=== PATIENT | male | born 1940 | race Caucasian/White ===

== ENCOUNTER → 2016-09-07 | Outpatient (CLI) | payer MEDICARE, BC ==
--- NOTE | 2016-09-07 09:48 | US ---
EXAMINATION TYPE: US abdomen complete DATE OF EXAM: 09/07/2016 9:19 AM COMPARISON: CT on PACS CLINICAL HISTORY: Splenomegaly per order; prior cholecystectomy and hernia repair anterior abdominal wall; enlarged liver noted on CT; H t6'0", Wt 230lbs. EXAM MEASUREMENTS: Liver Length: 17.6cm Gallbladder Wall: surgically removed CBD: 0.3cm Spleen: 10.5 x 11.0 x 4.5cm Right Kidney: 11.7 x 6.7 x 4.5cm Left Kidney: 12.4 x 6.0 x 5.2cm ANATOMY: Pancreas: Obscured by bowel gas Liver: Increased posterior attenuation; fatty as is hyperechoic; left lobe complex cyst noted with p osterior enhancement = 2.3 x 2.7 x 2.2cm; in right lobe inferiorly is hypoechoic complex mass = 5.5 x 5.1 x 5.0cm ( possible complex cyst vs. Other mass, but consider mass at superior right renal jaky x due to limited separation between organs Gallbladder: surgically absent CBD: Within normal limits Spleen: Size is within normal limits, couple of hyperechoic foci scattered throughout suggests granu wander Right Kidney: no hydro seen Left Kidney: No hydronephrosis or masses seen Upper IVC: Within normal limits Abd Aorta: Obscured by overlying bowel gas at upper aorta, intimal thickening is noted mid and lower aorta There is a complex cyst within the right lobe of the liver and a 5.5 cm solid mass within the inferio r part of the right lobe of the liver. IMPRESSION: 2 complex liver lesions warrant further investigation. CT scan versus MRI of the liver would be sugge sted. Normal Values: Liver Length: < 16cm wnl, 17-18cm upper limits, >18cm enlarged Spleen Length = < 13cm Renal Length = 9 - 12cm GB Wall: < 0.3cm CBD: < 0.6cm or < 1.0cm post cholecystectomy
== END ==
LOC: RADUSWWP 08:42
PROVIDERS: ATTEND Internal Medicine Hematology & Oncology
DX: K76.9 Liver disease, unspecified (principal)
CPT/HCPCS: 76700

== ENCOUNTER 2016-10-07 09:58 | Day surgery (SDC) | payer MEDICARE, BC ==
[2016-10-07 10:33] LABS: Mean Platelet Volume 9.8
[2016-10-07 10:40] LABS: INR 1.2 (<1.1); Prothrombin Time 11.6 sec (9.0-12.0)
[2016-10-07] MEDS ORDERED: ALPRAZolam 0.25 MG TAB PO STA (10:53)
[2016-10-07] MEDS: HYDROmorphone 1 MG/ML 1 ML SYRINGE IVP STA ×3 (11:20→11:50)
[2016-10-07 11:33] VITALS: RESP 16
--- NOTE | 2016-10-07 12:25 | CT ---
EXAMINATION TYPE: CT biopsy liver DATE OF EXAM: 10/07/2016 12:02 PM COMPARISON: Ultrasound on 417, outside MRI dated 09/27/2016 HISTORY: Right lobe liver mass CT DLP: 2502mGycm PROCEDURE: The risks, applications, benefits and alternatives, were discussed with the patient and qu estions were answered. Informed consent was obtained. The patient was placed supine on the fluorosco pic table, prepped and draped in the usual sterile fashion. A 22-gauge system was utilized with direct passage of the needle into the right lobe liver lesion un oksana CT guidance. Samples were obtained with fine needle aspiration. Pathology confirmed adequate sa mple. The patient was stable throughout procedure and remained stable upon discharge from radiology. All elements of maximal barrier and sterile technique were utilized. IMPRESSION: 1. Successful right lobe liver mass fine needle aspiration under CT guidance.
[2016-10-07 13:37] VITALS: TEMP 98.2
[2016-10-07 15:40] VITALS: BP 125/65; PULSE 63
== END 2016-10-07 15:56 | disposition home or self-care (01) ==
LOC: RADPROMAIN 09:58
PROVIDERS: ATTEND Internal Medicine Hematology & Oncology
DX: R16.0 Hepatomegaly, not elsewhere classified (principal)
CPT/HCPCS: 88305; 88173; 85049; 85610; 88313; 88342; 88341; 36415; 47000; 77012; J1170

== ENCOUNTER → 2016-10-15 | Outpatient (CLI) | payer MEDICARE, BC ==
--- NOTE | 2016-10-16 11:34 | PE ---
EXAMINATION TYPE: PET CT fusion skull to thigh DATE OF EXAM: 10/15/2016 12:18 PM COMPARISON: MRI abdomen 09/27/2016, CT liver biopsy to 11/21/2016 HISTORY: Liver cancer TECHNIQUE: Following the intravenous administration of 13.46 mCi of F-18 FDG, whole body images are performed from the skull base to the midthigh. Images are reviewed on the computer in the coronal, a xial, and sagittal planes. Reconstructed rotating images are created on independent workstation and reviewed on the computer. A localization and attenuation correction CT is performed in conjunction with the PET scan. DLP: 494.93 mGycm SCAN: Initial Scan Blood glucose: 130 mg/dL Average Mediastinum SUV: 1.8 Average Liver SUV: 3.0 FINDINGS: NECK: No abnormal uptake THORAX: No abnormal uptake ABDOMEN AND PELVIS: No abnormal uptake Liver is slightly heterogenous without discrete focal areas of abnormal increased uptake to correspon d to the patient's reported liver cancer. There are scattered areas of increased uptake within loops of bowel. These could be within normal ellis its. There is some mild uptake within the distal rectum which can be within normal limits. Underlying neoplasm at these levels are not excluded. OSSEOUS STRUCTURES: No abnormal uptake LOCALIZATION CT: The ascending thoracic aorta at the level of the main pulmonary artery is 4.6 cm. Th e main pulmonary artery at the bifurcation is 2.8 cm. Coronary artery calcifications present. Vascula r calcification is within the aorta. Beam hardening artifact limits evaluation of the liver on the lo calization CT. Discrete masses or cysts are not identified. Pancreas appears atrophic. COMPARISON: When compared to the MRI from the outside institution and compared to a localization CT, some subtle bulging of the inferior medial right lobe liver adjacent to the inferior pole of the righ t kidney is identified which appears to correspond to the patient's reported cancer site. Suspicious uptake on PET CT however is not evident at this location. Images are reviewed in relation to the bio psy site of the liver performed at this location. IMPRESSION: 1. Abnormal uptake at the inferior medial right lobe liver at the patient's reported hepatic cancer i s not evident on the current PET/CT. This is poorly visualized localization CT. Monitoring may be req uired with MRI. 2. No suspicious distant hypermetabolic lesions evident.
== END | disposition home or self-care (01) ==
LOC: RADPETMAIN 07:40
PROVIDERS: ATTEND Internal Medicine Hematology & Oncology
DX: C22.8 Malignant neoplasm of liver, primary, unspecified as to type (principal)
CPT/HCPCS: 78815; A9552

== ENCOUNTER → 2016-10-21 | Outpatient (CLI) | payer MEDICARE, BC ==
[~2016-10-21] MED LIST: SODIUM CHLORIDE 0.9% 250 ML in EMPTY BAG 1 BAG IV PRN; SODIUM CHLORIDE 0.9% 500 ML in EMPTY BAG 1 BAG IV PRN
[2016-10-21 11:03] VITALS: RESP 17; TEMP 97.7
[2016-10-21 12:14] VITALS: BP 125/58; PULSE 60
== END | disposition home or self-care (01) ==
LOC: PROCWHC3 10:18
PROVIDERS: ATTEND Internal Medicine Rheumatology
DX: L40.50 Arthropathic psoriasis, unspecified (principal)
CPT/HCPCS: 96361; 96413; 96415; J1745

== ENCOUNTER → 2016-12-02 | Outpatient (CLI) | payer MEDICARE, BC ==
[2016-12-02 11:29] VITALS: RESP 18; TEMP 98.1
[2016-12-02 12:48] VITALS: BP 114/59; PULSE 57
== END | disposition home or self-care (01) ==
LOC: PROCWHC3 11:01
PROVIDERS: ATTEND Internal Medicine Rheumatology
DX: L40.50 Arthropathic psoriasis, unspecified (principal)
CPT/HCPCS: 96361; 96413; 96415; J1745

== ENCOUNTER → 2017-03-01 | Outpatient (CLI) | payer MEDICARE, BC ==
[2017-03-01 11:22] VITALS: RESP 16; TEMP 97.9
[2017-03-01 12:36] VITALS: BP 105/53; PULSE 59
== END | disposition home or self-care (01) ==
LOC: PROCWHC3 10:45
PROVIDERS: ATTEND Internal Medicine Rheumatology
DX: L40.53 Psoriatic spondylitis (principal)
CPT/HCPCS: 96413; 96415; J1745

== ENCOUNTER → 2017-06-02 | Outpatient (CLI) | payer MEDICARE, BC ==
[~2017-06-02] MED LIST changes: +INFLIXIMAB-DYYB 700 MG in SODIUM CHLORIDE 0.9% 250 ML IV ONE; -SODIUM CHLORIDE 0.9% 250 ML in EMPTY BAG 1 BAG IV PRN
[2017-06-02 11:18] VITALS: TEMP 98
[2017-06-02 11:57] LABS: Aty Lym Flag Marked; CH 29.3; CHCM 31.7; HCT 38.8 % (39.0-53.0); HDW 2.27; HGB 12.3 gm/dL (13.0-17.5); MCH 29.5 pg (25.0-35.0); MCHC 31.8 g/dL (31.0-37.0); MCV 92.8 fL (80.0-100.0); Mean Platelet Volume 9.8; RBC 4.18 m/uL (4.30-5.90); RDW 14.6 % (11.5-15.5); WBC 5.3 k/uL (3.8-10.6); WBC (Perox) 5.97
[2017-06-02 13:03] VITALS: BP 123/56; PULSE 59; RESP 18
[2017-06-02 14:02] LABS: ALT 48 U/L (21-72); AST 44 U/L (17-59); Alkaline Phosphatase 176 U/L (38-126); Anion Gap 14 mmol/L; Blood Urea Nitrogen 11 mg/dL (9-20); Calcium 9.6 mg/dL (8.4-10.2); Carbon Dioxide 26 mmol/L (22-30); Chloride 100 mmol/L (98-107); Glucose 140 mg/dL (74-99); Non-African American GFR(MDRD) >60 (>60 ml/min/1.73 sqM); Potassium 4.5 mmol/L (3.5-5.1); Sodium 140 mmol/L (137-145); Total Protein 8.2 g/dL (6.3-8.2)
[2017-06-02 14:22] LABS: Add Differential Manual Differential
[2017-06-02 14:26] LABS: Band Neutrophils % 2 %; Metamyelocytes % 1 %; Myelocytes % 1 %; Nucleated Red Blood Cells 0 /100 WBC (0-0); Total Cells Counted 200
== END ==
LOC: PROCWHC3 10:42
PROVIDERS: ATTEND Internal Medicine Rheumatology
DX: Z51.11 Encounter for antineoplastic chemotherapy (principal); L40.53 Psoriatic spondylitis
CPT/HCPCS: 80053; 85025; 96413; 96415; 36415; Q5102

== ENCOUNTER → 2017-10-06 | Outpatient (CLI) | payer MEDICARE, BC ==
[~2017-10-06] MED LIST changes: +SODIUM CHLORIDE 0.9% 250 ML in EMPTY BAG 1 BAG IV PRN
[2017-10-06 11:19] VITALS: RESP 16; TEMP 97.7
[2017-10-06 12:34] VITALS: BP 113/65; PULSE 57
== END | disposition home or self-care (01) ==
LOC: PROCWHC3 10:46
PROVIDERS: ATTEND Internal Medicine Rheumatology
DX: L40.53 Psoriatic spondylitis (principal)
CPT/HCPCS: 96413; 96415; Q5102

== ENCOUNTER → 2017-11-21 | Outpatient (CLI) | payer MEDICARE, BC ==
[~2017-11-21] MED LIST changes: -SODIUM CHLORIDE 0.9% 250 ML in EMPTY BAG 1 BAG IV PRN
[2017-11-21 11:43] VITALS: TEMP 98
[2017-11-21 12:47] VITALS: RESP 14
[2017-11-21 13:13] VITALS: BP 137/63; PULSE 59
== END | disposition home or self-care (01) ==
LOC: PROCWHC3 10:41
PROVIDERS: ATTEND Internal Medicine Rheumatology
DX: L40.53 Psoriatic spondylitis (principal)
CPT/HCPCS: 96413; 96415; Q5102

== ENCOUNTER → 2018-02-07 | Outpatient (CLI) | payer MEDICARE, BC ==
[2018-02-07 10:04] LABS: ALT 52 U/L (21-72); AST 62 U/L (17-59); Albumin 4.4 g/dL (3.5-5.0); Alkaline Phosphatase 254 U/L (38-126); Anion Gap 13 mmol/L; Bilirubin, Delta 0.7 mg/dL (0.0-0.2); Bilirubin,Unconjugated 0.9 mg/dL (0.0-1.1); Blood Urea Nitrogen 11 mg/dL (9-20); Calcium 9.4 mg/dL (8.4-10.2); Carbon Dioxide 28 mmol/L (22-30); Chloride 99 mmol/L (98-107); Glucose 119 mg/dL (74-99); Potassium 4.8 mmol/L (3.5-5.1); Sodium 140 mmol/L (137-145); Total Bilirubin 1.6 mg/dL (0.2-1.3)
[2018-02-07 10:14] LABS: HCT 36.1 % (39.0-53.0); HGB 12.2 gm/dL (13.0-17.5); MCH 31.2 pg (25.0-35.0); MCHC 33.9 g/dL (31.0-37.0); MCV 92.1 fL (80.0-100.0); Mean Platelet Volume 11.1; RBC 3.92 m/uL (4.30-5.90); WBC 6.5 k/uL (3.8-10.6)
[2018-02-07 12:48] LABS: Myelocytes # (M) 0.07 k/uL (0); Myelocytes % 1 %; Nucleated Red Blood Cells 0 /100 WBC (0-0)
[2018-02-07 12:49] LABS: Band Neutrophils % 3 %; Eosinophils # (M) 0.07 k/uL (0-0.7); Lymphocytes # (M) 1.11 k/uL (1.0-4.8); Metamyelocytes # (M) 0.07 k/uL (0); Metamyelocytes % 1 %; Monocytes # (M) 1.89 k/uL (0-1.0); Neutrophils % (M) 51 %; Total Cells Counted 200
[2018-02-07 12:50] LABS: Anisocytosis (M) Present; Platelet Count 70 k/uL (150-450); Poikilocytosis (M) Present
== END | disposition home or self-care (01) ==
LOC: LABWHC1 09:05
PROVIDERS: ATTEND Radiology Diagnostic Radiology
DX: C22.0 Liver cell carcinoma (principal)
CPT/HCPCS: 36415; 80053; 82105; 82248; 85025

== ENCOUNTER → 2018-03-06 | Outpatient (CLI) | payer MEDICARE, BC ==
[~2018-03-06] MED LIST changes: +INFLIXIMAB-DYYB 700 MG in SODIUM CHLORIDE 0.9% 250 ML IV NR; -INFLIXIMAB-DYYB 700 MG in SODIUM CHLORIDE 0.9% 250 ML IV ONE
[2018-03-06 09:21] VITALS: RESP 16; TEMP 97.6
[2018-03-06 10:54] VITALS: BP 141/60; PULSE 55
== END | disposition home or self-care (01) ==
LOC: PROCWHC3 09:00
PROVIDERS: ATTEND Internal Medicine Rheumatology
DX: L40.53 Psoriatic spondylitis (principal)
CPT/HCPCS: 96413; 96415; Q5103

== ENCOUNTER → 2018-06-08 | Outpatient (CLI) | payer MEDICARE, BC ==
[2018-06-08 13:40] LABS: INR 1.1 (<1.2)
[2018-06-08 13:50] LABS: ALT 55 U/L (21-72); AST 82 U/L (17-59); Albumin 3.8 g/dL (3.5-5.0); Alkaline Phosphatase 259 U/L (38-126); Anion Gap 10 mmol/L; Blood Urea Nitrogen 13 mg/dL (9-20); Calcium 8.8 mg/dL (8.4-10.2); Carbon Dioxide 29 mmol/L (22-30); Chloride 103 mmol/L (98-107); Glucose 95 mg/dL (74-99); LDH 615 U/L (313-618); Potassium 4.6 mmol/L (3.5-5.1); Sodium 142 mmol/L (137-145); Total Bilirubin 1.7 mg/dL (0.2-1.3)
[2018-06-08 14:07] LABS: Anisocytosis Slight; HCT 35.4 % (39.0-53.0); HGB 11.5 gm/dL (13.0-17.5); MCH 31.5 pg (25.0-35.0); MCHC 32.4 g/dL (31.0-37.0); Macrocytosis Slight; Mean Platelet Volume 12.9; RBC 3.65 m/uL (4.30-5.90); RDW 18.4 % (11.5-15.5); WBC 4.2 k/uL (3.8-10.6)
[2018-06-08 14:10] LABS: Platelet Count 47 k/uL (150-450)
[2018-06-08 15:01] LABS: Band Neutrophils % 3 %; Basophils # (M) 0.04 k/uL (0-0.2); Eosinophils # (M) 0.42 k/uL (0-0.7); Lymphocytes # (M) 1.01 k/uL (1.0-4.8); Monocytes # (M) 1.47 k/uL (0-1.0); Neutrophils % (M) 27 %; Nucleated Red Blood Cells 0 /100 WBC (0-0); Total Cells Counted 100
[2018-06-08 15:02] LABS: Poikilocytosis (M) Present
== END | disposition home or self-care (01) ==
LOC: LABWHC1 11:45
PROVIDERS: ATTEND Internal Medicine Medical Oncology
DX: C22.0 Liver cell carcinoma (principal)
CPT/HCPCS: 36415; 80053; 82105; 83615; 84443; 85025; 85610; 85730

== ENCOUNTER → 2018-06-21 | Outpatient (CLI) | payer MEDICARE, BC ==
[~2018-06-21] MED LIST changes: -INFLIXIMAB-DYYB 700 MG in SODIUM CHLORIDE 0.9% 250 ML IV NR; +INFLIXIMAB-DYYB 700 MG in SODIUM CHLORIDE 0.9% 250 ML IV ONE; +SODIUM CHLORIDE 0.9% 500 ML 500 ML in EMPTY BAG 1 BAG IV PRN; -SODIUM CHLORIDE 0.9% 500 ML in EMPTY BAG 1 BAG IV PRN
[2018-06-21 10:56] VITALS: TEMP 98.1
[2018-06-21 12:25] VITALS: BP 107/53; PULSE 56; RESP 18
== END | disposition home or self-care (01) ==
LOC: PROCWHC3 10:31
PROVIDERS: ATTEND Internal Medicine Rheumatology
DX: L40.50 Arthropathic psoriasis, unspecified (principal)
CPT/HCPCS: 96413; 96415; Q5103

== ENCOUNTER → 2018-08-08 | Outpatient (CLI) | payer MEDICARE, BC ==
--- NOTE | 2018-08-08 14:35 | XR ---
EXAMINATION TYPE: XR ribs RT DATE OF EXAM: 08/08/2018 COMPARISON: Chest 06/17/2017 HISTORY: 78-year-old male fall 5 weeks ago with pain, sprain of the ribs TECHNIQUE: 4 views FINDINGS: Degenerative spurring at the glenohumeral joint. Bony irregularity at the greater tuberosity suggesti ng chronic rotator cuff tendinopathy. Mild degenerative change at the AC joint. No displaced right ri b fracture seen. Left anterior chest wall injection port has its tip in the upper right atrium. Suspe cted calcified granuloma at the right midlung. IMPRESSION: Degenerative changes at the right shoulder. No displaced right rib fracture seen.
--- NOTE | 2018-08-08 14:36 | XR ---
EXAMINATION TYPE: XR Hip Limited LT DATE OF EXAM: 08/08/2018 COMPARISON: NONE HISTORY: 78-year-old male left hip pain TECHNIQUE: 2 views FINDINGS: Mild degenerative joint space narrowing with moderate degenerative spurring at the left hip. No acute fracture, subluxation, or dislocation seen. IMPRESSION: Mild overall left hip osteoarthrosis. No acute osseous abnormality seen.
== END | disposition home or self-care (01) ==
LOC: RADXRMAIN 11:50
PROVIDERS: ATTEND Family Medicine
DX: M16.11 Unilateral primary osteoarthritis, right hip (principal); S23.41XA Sprain of ribs, initial encounter
CPT/HCPCS: 73501

== ENCOUNTER 2018-09-13 10:42 | Outpatient (CLI) | payer MEDICARE, BC ==
[~2018-09-13 10:42] MED LIST changes: +INFLIXIMAB-DYYB 700 MG in SODIUM CHLORIDE 0.9% 250 ML IV NR; -INFLIXIMAB-DYYB 700 MG in SODIUM CHLORIDE 0.9% 250 ML IV ONE
[2018-09-13 11:41] VITALS: TEMP 97.6
[2018-09-13 12:34] VITALS: RESP 18
[2018-09-13 13:10] VITALS: BP 107/52; PULSE 62
== END 2018-09-13 14:51 | disposition home or self-care (01) ==
LOC: PROCWHC3 10:42
PROVIDERS: ATTEND Internal Medicine Rheumatology
DX: L40.53 Psoriatic spondylitis (principal); L40.50 Arthropathic psoriasis, unspecified
CPT/HCPCS: 96413; 96415; Q5103

== ENCOUNTER → 2018-10-30 | Outpatient (CLI) | payer MEDICARE, BC ==
[2018-10-30 11:22] VITALS: RESP 16; TEMP 97.4
[2018-10-30 12:57] VITALS: BP 105/59; PULSE 62
== END | disposition home or self-care (01) ==
LOC: PROCWHC3 10:47
PROVIDERS: ATTEND Internal Medicine Rheumatology
DX: L40.53 Psoriatic spondylitis (principal)
CPT/HCPCS: 96413; 96415; Q5103

== ENCOUNTER → 2018-12-12 | Outpatient (CLI) | payer MEDICARE, BC ==
[2018-12-12 11:37] VITALS: RESP 16; TEMP 97.9
[2018-12-12 13:20] VITALS: BP 100/60; PULSE 64
== END ==
LOC: PROCWHC3 11:12
PROVIDERS: ATTEND Internal Medicine Rheumatology
DX: L40.53 Psoriatic spondylitis (principal)
CPT/HCPCS: 96413; 96415; Q5103

== ENCOUNTER → 2019-02-01 | Outpatient (CLI) | payer MEDICARE, BC ==
[2019-02-01 12:29] VITALS: RESP 16; TEMP 98
[2019-02-01 14:08] VITALS: BP 116/56; PULSE 59
== END ==
LOC: PROCWHC3 12:05
PROVIDERS: ATTEND Internal Medicine Rheumatology
DX: L40.53 Psoriatic spondylitis (principal)
CPT/HCPCS: 96413; 96415; Q5103

== ENCOUNTER → 2019-05-14 | Outpatient (CLI) | payer MEDICARE, BC ==
[2019-05-14 11:01] VITALS: RESP 16; TEMP 97.6
[2019-05-14 12:42] VITALS: BP 130/67; PULSE 66
== END | disposition home or self-care (01) ==
LOC: PROCWHC3 10:37
PROVIDERS: ATTEND Internal Medicine Rheumatology
DX: L40.50 Arthropathic psoriasis, unspecified (principal)
CPT/HCPCS: 96413; 96415; Q5103

== ENCOUNTER 2019-07-09 11:05 | Inpatient (IN) | payer MEDICARE, BC ==
[2019-07-09] MEDS ORDERED: SODIUM CHLORIDE 0.9% 1,000 ML IV STA (11:47)
[2019-07-09] MEDS ORDERED: PANTOPRAZOLE 40 MG/10 ML VIAL IVP STA (11:47)
--- NOTE | 2019-07-09 11:51 | ED ---
General Adult HPI - General Chief complaint: Weakness Stated complaint: black stool, weakness Time Seen by Provider: 07/09/19 11:23 Source: patient, family, RN notes reviewed, old records reviewed Mode of arrival: wheelchair Limitations: no limitations - History of Present Illness Initial comments: Patient is a 79-year-old male, with history of liver cancer, with metastases. He presents today for generalized weakness and pallor. Patient's reports that he had episodes of black tarry stool on Monday. That time he refused to go to the hospital. Patient's oncologist is Dr. Baker at [facility]. Patient just feels generally weak. He complains of right upper quadrant and flank pain with this is chronic for Patient. He states he just feels unwell and tired. He's never had a history of blood transfusions besides a platelet transfusion. His platelets previously were 77 and his hemoglobin was approximately 3 weeks ago was 10 at that time. Patient is not on blood thinners. - Related Data Home Medications Medication Instructions Recorded Confirmed Carvedilol [Coreg] 6.25 mg PO BID 01/21/14 05/14/19 Furosemide [Lasix] 20 mg PO DAILY 01/21/14 05/14/19 HYDROcodone/APAP 10-325MG [[place] 2 tab PO TID PRN 01/21/14 05/14/19 10-325] Potassium Chloride ER [K-Dur 10] 10 meq PO DAILY 01/21/14 05/14/19 metFORMIN HCL [Glucophage] 850 mg PO HS 01/21/14 05/14/19 Cyclobenzaprine [Flexeril] 10 mg PO HS PRN 07/05/16 05/14/19 Gabapentin [Neurontin] 800 mg PO HS 07/05/16 05/14/19 Pravastatin Sodium [Pravachol] 40 mg PO HS 07/05/16 05/14/19 Tamsulosin [Flomax] 0.4 mg PO HS 07/05/16 05/14/19 Cholecalciferol [Vitamin D3] 5,000 unit PO DAILY 09/30/16 05/14/19 Multivit-Min/FA/Lycopen/Lutein 1 tab PO DAILY 09/30/16 05/14/19 [Centrum Silver Tablet] inFLIXimab [Remicade] 600 mg IV Q180D 09/30/16 05/14/19 Omeprazole [PriLOSEC] 20 mg PO BID 06/17/17 05/14/19 Ferrous Sulfate [Iron] 325 mg PO DAILY 08/25/17 05/14/19 Cabozantinib S-Malate [Cabometyx] 20 mg PO DAILY 05/14/19 05/14/19 Previous Rx's Medication Instructions Recorded Polyethylene Glycol 3350 [Miralax] 17 gm PO DAILY #527 gm 06/17/17 Allergies Allergy/AdvReac Type Severity Reaction Status Date / Time No Known Allergies Allergy Verified 05/14/19 10:46 Review of Systems ROS Statement: Those systems with pertinent positive or pertinent negative responses have been documented in the HPI. ROS Other: All systems not noted in ROS Statement are negative. Past Medical History Past Medical History: Blood Disorder, Cancer, Chest Pain / Angina, COPD, CVA/TIA, Diabetes Mellitus, GERD/Reflux, Hearing Disorder / Deafness, Hyperlipidemia, Hypertension, Liver Disease, Prostate Disorder, Sleep Apnea/CPAP/BIPAP Additional Past Medical History / Comment(s): DIFF HEARING R&L/HEART MURMUR/POOR CIRCULATION/ENLARGED HEART/BRADYCARDIA/PSORIASIS/EMPHYSEMA/FATTY LIVER. LOW PLATELETS. Liver Cancer 2017, [place] History of Any Multi-Drug Resistant Organisms: None Reported Past Surgical History: Cholecystectomy, Heart Catheterization, Hernia Repair Additional Past Surgical History / Comment(s): BRONCHOSCOPY/CATARACT REMOVAL L&R/EGD/COLONOSCOPY/RT KNEE ARTHROSCOPIC /BULLETS REMOVED FROM LT ARM AND CHEST 1970'S/CIRCUMCISION, LIVER BIOPSY Past Anesthesia/Blood Transfusion Reactions: No Reported Reaction Past Psychological History: Anxiety Smoking Status: Former smoker Past Alcohol Use History: None Reported Past Drug Use History: None Reported - Past Family History Father Family Medical History: Cancer Additional Family Medical History / Comment(s): PROSTATE CANCER Brother(s) Family Medical History: Cancer Additional Family Medical History / Comment(s): COLON CANCER. General Exam - General Exam Comments Initial Comments: 79-year-old male. Patient appears very pale generally weak. Limitations: no limitations General appearance: alert, in no apparent distress Head exam: Present: atraumatic, normocephalic, normal inspection Eye exam: Present: normal appearance, PERRL, EOMI, other (conjuncival pallor ). Absent: scleral icterus, conjunctival injection, periorbital swelling ENT exam: Present: normal exam, mucous membranes dry, mucous membranes moist. Absent: normal oropharynx Neck exam: Present: normal inspection. Absent: tenderness, meningismus, lymphadenopathy Respiratory exam: Present: normal lung sounds bilaterally. Absent: respiratory distress, wheezes, rales, rhonchi, stridor Cardiovascular Exam: Present: regular rate, normal rhythm, normal heart sounds. Absent: systolic murmur, diastolic murmur, rubs, gallop, clicks GI/Abdominal exam: Present: soft, normal bowel sounds. Absent: distended, tenderness, guarding, rebound, rigid Extremities exam: Present: normal inspection, full ROM, normal capillary refill. Absent: tenderness, pedal edema, joint swelling, calf tenderness Back exam: Present: normal inspection Neurological exam: Present: alert, oriented X3, CN II-XII intact Psychiatric exam: Present: normal affect, normal mood Skin exam: Present: warm, dry, intact, normal color. Absent: rash Course Vital Signs 07/09/19 11:08 Temperature 97.9 F Pulse Rate 100 Respiratory 18 Rate Blood Pressure 101/55 O2 Sat by Pulse 100 Oximetry Medical Decision Making - Medical Decision Making 79-year-old male today for emergency department for generalized weakness, pale. Patient's reports he's had dark tarry stools weekend. His history of liver cancer being treated Chuy Luisito. He is currently on oral chemo. He also has a port access. At this time Patient states his last dark tarry stools on Monday. He complains of just chronic abdominal pain related to liver cancer. No vomiting. Patient was severely feeling pale on exam. Hemoglobin of 5.7. Stool occult was positive. Chemistry panels were otherwise unremarkable. Patient's platelets were 90 at this time. Patient will be admitted after receiving 2 units of PRBCs and will be admitted to ICU. Patient was admitted to Dr. Pickering with consult to GI and Dr. Amos. - Lab Data Result diagrams: 07/09/19 12:10 07/09/19 12:10 Lab Results 07/09/19 07/09/19 07/09/19 Range/Units 12:10 12:10 12:10 WBC 6.3 (3.8-10.6) k/uL RBC 1.72 L (4.30-5.90) m/uL Hgb 5.7 L* (13.0-17.5) gm/dL Hct 16.7 L* (39.0-53.0) % MCV 97.3 (80.0-100.0) fL MCH 33.2 (25.0-35.0) pg MCHC 34.1 (31.0-37.0) g/dL RDW 19.9 H (11.5-15.5) % Plt Count 90 L (150-450) k/uL Neutrophils % (Manual) 51 % Band Neutrophils % 2 % Lymphocytes % (Manual) 27 % Monocytes % (Manual) 20 % Neutrophils # (Manual) 3.30 (1.3-7.7) k/uL Lymphocytes # (Manual) 1.70 (1.0-4.8) k/uL Monocytes # (Manual) 1.26 H (0-1.0) k/uL Nucleated RBCs 0 (0-0) /100 WBC Manual Slide Review Performed Anisocytosis Slight Macrocytosis Slight PT (9.0-12.0) sec INR (<1.2) APTT (22.0-30.0) sec Sodium 140 (137-145) mmol/L Potassium 3.6 (3.5-5.1) mmol/L Chloride 104 (98-107) mmol/L Carbon Dioxide 25 (22-30) mmol/L Anion Gap 11 mmol/L BUN 32 H (9-20) mg/dL Creatinine 0.68 (0.66-1.25) mg/dL Est GFR (CKD-EPI)AfAm >90 (>60 ml/min/1.73 sqM) Est GFR (CKD-EPI)NonAf >90 (>60 ml/min/1.73 sqM) Glucose 170 H (74-99) mg/dL Calcium 9.0 (8.4-10.2) mg/dL Magnesium 1.9 (1.6-2.3) mg/dL Total Bilirubin 1.5 H (0.2-1.3) mg/dL AST 91 H (17-59) U/L ALT 66 (21-72) U/L Alkaline Phosphatase 164 H (38-126) U/L Ammonia 22 (<30) umol/L Troponin I (0.000-0.034) ng/mL Total Protein 7.4 (6.3-8.2) g/dL Albumin 3.5 (3.5-5.0) g/dL Stool Occult Blood (Negative) Blood Type Blood Type Recheck Bld Type Recheck Status Antibody Screen Crossmatch Spec Expiration Date 07/09/19 07/09/19 07/09/19 Range/Units 12:10 12:10 12:10 WBC (3.8-10.6) k/uL RBC (4.30-5.90) m/uL Hgb (13.0-17.5) gm/dL Hct (39.0-53.0) % MCV (80.0-100.0) fL MCH (25.0-35.0) pg MCHC (31.0-37.0) g/dL RDW (11.5-15.5) % Plt Count (150-450) k/uL Neutrophils % (Manual) % Band Neutrophils % % Lymphocytes % (Manual) % Monocytes % (Manual) % Neutrophils # (Manual) (1.3-7.7) k/uL Lymphocytes # (Manual) (1.0-4.8) k/uL Monocytes # (Manual) (0-1.0) k/uL Nucleated RBCs (0-0) /100 WBC Manual Slide Review Anisocytosis Macrocytosis PT 12.0 (9.0-12.0) sec INR 1.2 H (<1.2) APTT 25.7 (22.0-30.0) sec Sodium (137-145) mmol/L Potassium (3.5-5.1) mmol/L Chloride (98-107) mmol/L Carbon Dioxide (22-30) mmol/L Anion Gap mmol/L BUN (9-20) mg/dL Creatinine (0.66-1.25) mg/dL Est GFR (CKD-EPI)AfAm (>60 ml/min/1.73 sqM) Est GFR (CKD-EPI)NonAf (>60 ml/min/1.73 sqM) Glucose (74-99) mg/dL Calcium (8.4-10.2) mg/dL Magnesium (1.6-2.3) mg/dL Total Bilirubin (0.2-1.3) mg/dL AST (17-59) U/L ALT (21-72) U/L Alkaline Phosphatase (38-126) U/L Ammonia (<30) umol/L Troponin I <0.012 (0.000-0.034) ng/mL Total Protein (6.3-8.2) g/dL Albumin (3.5-5.0) g/dL Stool Occult Blood (Negative) Blood Type A Positive Blood Type Recheck A Pos Bld Type Recheck Status No Antibody Screen NEGATIVE Crossmatch See Detail Spec Expiration Date 07/12/2019 - 230907/09/19 Range/Units 12:19 WBC (3.8-10.6) k/uL RBC (4.30-5.90) m/uL Hgb (13.0-17.5) gm/dL Hct (39.0-53.0) % MCV (80.0-100.0) fL MCH (25.0-35.0) pg MCHC (31.0-37.0) g/dL RDW (11.5-15.5) % Plt Count (150-450) k/uL Neutrophils % (Manual) % Band Neutrophils % % Lymphocytes % (Manual) % Monocytes % (Manual) % Neutrophils # (Manual) (1.3-7.7) k/uL Lymphocytes # (Manual) (1.0-4.8) k/uL Monocytes # (Manual) (0-1.0) k/uL Nucleated RBCs (0-0) /100 WBC Manual Slide Review Anisocytosis Macrocytosis PT (9.0-12.0) sec INR (<1.2) APTT (22.0-30.0) sec Sodium (137-145) mmol/L Potassium (3.5-5.1) mmol/L Chloride (98-107) mmol/L Carbon Dioxide (22-30) mmol/L Anion Gap mmol/L BUN (9-20) mg/dL Creatinine (0.66-1.25) mg/dL Est GFR (CKD-EPI)AfAm (>60 ml/min/1.73 sqM) Est GFR (CKD-EPI)NonAf (>60 ml/min/1.73 sqM) Glucose (74-99) mg/dL Calcium (8.4-10.2) mg/dL Magnesium (1.6-2.3) mg/dL Total Bilirubin (0.2-1.3) mg/dL AST (17-59) U/L ALT (21-72) U/L Alkaline Phosphatase (38-126) U/L Ammonia (<30) umol/L Troponin I (0.000-0.034) ng/mL Total Protein (6.3-8.2) g/dL Albumin (3.5-5.0) g/dL Stool Occult Blood Positive (Negative) Blood Type Blood Type Recheck Bld Type Recheck Status Antibody Screen Crossmatch Spec Expiration Date - Radiology Data Radiology results: report reviewed No acute cranial process. Patchy midlung densities appear represent pleural calcifications correlating to PET scan of 10/15/2016. Critical Care Time Critical Care Time: Yes Critical Care Time: Within 30 minutes of critical care time was done managing the Patient for concern for GI bleed and transfusing 2 units of PRBCs. Disposition Clinical Impression: GI bleed, Liver cancer, Weakness Disposition: ADMITTED IP TO THIS [facility] Condition: Stable Is patient prescribed a controlled substance at d/c from ED?: No Referrals: Felisha Calderon MD [Primary Care Provider] - 1-2 days Time of Disposition: 13:45
[2019-07-09 12:42] LABS: ALT 66 U/L (21-72); AST 91 U/L (17-59); African American GFR (CKD) >90 (>60 ml/min/1.73 sqM); Albumin 3.5 g/dL (3.5-5.0); Alkaline Phosphatase 164 U/L (38-126); Anion Gap 11 mmol/L; Blood Urea Nitrogen 32 mg/dL (9-20); Carbon Dioxide 25 mmol/L (22-30); Chloride 104 mmol/L (98-107); Glucose 170 mg/dL (74-99); Magnesium 1.9 mg/dL (1.6-2.3); Potassium 3.6 mmol/L (3.5-5.1); Sodium 140 mmol/L (137-145); Total Bilirubin 1.5 mg/dL (0.2-1.3); Total Protein 7.4 g/dL (6.3-8.2)
[2019-07-09 12:53] LABS: INR 1.2 (<1.2); Partial Thromboplastin Time 25.7 sec (22.0-30.0)
[2019-07-09 13:00] LABS: Anisocytosis Slight; MCH 33.2 pg (25.0-35.0); MCHC 34.1 g/dL (31.0-37.0); MCV 97.3 fL (80.0-100.0); Macrocytosis Slight; Mean Platelet Volume 8.7; RBC 1.72 m/uL (4.30-5.90); RDW 19.9 % (11.5-15.5); WBC 6.3 k/uL (3.8-10.6)
[2019-07-09] MEDS: SODIUM CHLORIDE 0.9% 1,000 ML IV STA ×2 (13:04→20:48)
[2019-07-09 13:11] LABS: HCT 16.7 % (39.0-53.0); HGB 5.7 gm/dL (13.0-17.5)
--- NOTE | 2019-07-09 13:18 | XR ---
EXAMINATION TYPE: XR chest 2V DATE OF EXAM: 07/09/2019 COMPARISON: 08/08/2018 rib series and 06/17/2017 chest x-ray. PET/CT of 10/15/2016. HISTORY: Weakness and chest pain TECHNIQUE: Frontal and lateral views of the chest are obtained. FINDINGS: Stable metallic debris along the left hemidiaphragm. Left-sided Mediport is in place termin ating in the high right atrium. There is no focal air space opacity, pleural effusion, or pneumothora x seen. Patchy bilateral midlung densities. The cardiac silhouette size is upper limits of normal. S light pulmonary hyperinflation that may relate to underlying COPD. The osseous structures are intact. Moderate degenerative changes of the spine. IMPRESSION: 1. No acute cardiopulmonary process. 2. Patchy midlung densities appear to represent pleural calcifications when correlated with the PET/C T of 10/15/2016
[2019-07-09 13:33] LABS: Band Neutrophils % 2 %; Monocytes # (M) 1.26 k/uL (0-1.0); Neutrophils % (M) 51 %; Nucleated Red Blood Cells 0 /100 WBC (0-0); Total Cells Counted 100
[2019-07-09] MEDS ORDERED: NALOXONE 0.4 MG/ML 1 ML VIAL IV PRN (13:46)
[2019-07-09] MEDS ORDERED: ACETAMINOPHEN TAB 325 MG TAB PO PRN (13:46)
[2019-07-09] MEDS ORDERED: HYDROmorphone 1 MG/ML 1 ML SYRINGE IVP PRN (13:46)
[2019-07-09] MEDS ORDERED: MORPHINE SULFATE 4 MG/ML SYRINGE IV PRN (13:46)
[2019-07-09 13:54] LABS: Platelet Count 90 k/uL (150-450)
[2019-07-09] MEDS ORDERED: CYCLOBENZAPRINE 10 MG TAB PO PRN (15:13)
[2019-07-09] MEDS ORDERED: HYDROcodone/APAP 10-325MG 1 EACH TAB PO PRN (15:14)
[2019-07-09] MEDS ORDERED: ONDANSETRON 4 MG/2 ML VIAL IVP PRN (15:15)
[2019-07-09 15:19] LABS: Anisocytosis Slight; MCH 32.8 pg (25.0-35.0); MCHC 33.3 g/dL (31.0-37.0); MCV 98.6 fL (80.0-100.0); Macrocytosis Slight; Mean Platelet Volume 9.6; Platelet Count 60 k/uL (150-450); RDW 19.6 % (11.5-15.5); WBC 4.4 k/uL (3.8-10.6)
[2019-07-09 15:34] LABS: HCT 15.8 % (39.0-53.0)
[2019-07-09 15:35] LABS: HGB 5.3 gm/dL (13.0-17.5)
--- NOTE | 2019-07-09 15:45 | P.HPIM ---
History of Present Illness H&P Date: 07/09/19 Chief Complaint: Weakness GI bleed This is a 79-year-old male patient of Dr. Calderon. Patient presented with complaints of increased weakness and potential GI bleed. Patient reports that he had a dark tarry stool on Monday. At that time patient refused to go to ER per . Patient became increasingly weak over the past few days. Patient complains of generalized right upper quadrant and flank pain which is chronic per patient related to his known liver cancer. Patient has metastatic liver cancer in which he follows with Dr. Baker at [facility]. Patient reports he just has been feeling very weak and tired. Hemoglobin upon arrival he 5.7 patient denies any nausea or vomiting but does report decreased appetite. Additional medical history includes liver cancer in which she is currently on chemotherapy therapy. Per patient's chemotherapy has been on hold for dental procedure. Chest x-ray completed showing no acute cardiopulmonary process. Patchy midlung densities appear to be represent pleural calcifications when correlated with the CT of 10/15/2016. Patient reports last colonoscopy was approximately [address] Phelps. Additional medical history includes chronic thrombocytopenia, CVA, diabetes mellitus, GERD, hearing disorder, hype rlipidemia, hypertension, prostate disorder, cholecystectomy and anxiety. Hgb5.7, platelets 90. Stool for occult blood positive. At this time to unit PRBCs have been ordered. Patient will be admitted to the intensive care unit. GI, oncology and critical care service is consulted. Vitals are stable at this time. At this time patient denies chest pain or shortness of breath. Patient denies nausea vomiting or diarrhea. Patient denies any urinary burning or frequency Review of Systems Please refer to HPI otherwise unremarkable Past Medical History Past Medical History: Blood Disorder, Cancer, Chest Pain / Angina, COPD, CVA/TIA, Diabetes Mellitus, GERD/Reflux, Hearing Disorder / Deafness, Hyperlipidemia, Hypertension, Liver Disease, Prostate Disorder, Sleep Apnea/CPAP/BIPAP Additional Past Medical History / Comment(s): DIFF HEARING R&L/HEART MURMUR/POOR CIRCULATION/ENLARGED HEART/BRADYCARDIA/PSORIASIS/EMPHYSEMA/FATTY LIVER. LOW PLATELETS. Liver Cancer 2017, ARTHRITIS [place] History of Any Multi-Drug Resistant Organisms: None Reported Past Surgical History: Cholecystectomy, Heart Catheterization, Hernia Repair Additional Past Surgical History / Comment(s): BRONCHOSCOPY/CATARACT REMOVAL L&R/EGD/COLONOSCOPY/RT KNEE ARTHROSCOPIC /BULLETS REMOVED FROM LT ARM AND CHEST 1970'S/CIRCUMCISION, LIVER BIOPSY Past Anesthesia/Blood Transfusion Reactions: No Reported Reaction Past Psychological History: Anxiety Smoking Status: Former smoker Past Alcohol Use History: None Reported Past Drug Use History: None Reported - Past Family History Father Family Medical History: Cancer Additional Family Medical History / Comment(s): PROSTATE CANCER Brother(s) Family Medical History: Cancer Additional Family Medical History / Comment(s): COLON CANCER. Medications and Allergies Home Medications Medication Instructions Recorded Confirmed Type Furosemide [Lasix] 20 mg PO DAILY 01/21/14 07/09/19 History HYDROcodone/APAP 10-325MG [[place] 1 tab PO TID PRN 01/21/14 07/09/19 History 10-325] Potassium Chloride ER [K-Dur 10] 10 meq PO DAILY 01/21/14 07/09/19 History metFORMIN HCL [Glucophage] 850 mg PO HS 01/21/14 07/09/19 History Cyclobenzaprine [Flexeril] 10 mg PO HS PRN 07/05/16 07/09/19 History Gabapentin [Neurontin] 800 mg PO HS 07/05/16 07/09/19 History Tamsulosin [Flomax] 0.4 mg PO HS 07/05/16 07/09/19 History Cholecalciferol [Vitamin D3] 5,000 unit PO DAILY 09/30/16 07/09/19 History Multivit-Min/FA/Lycopen/Lutein 1 tab PO DAILY 09/30/16 07/09/19 History [Centrum Silver Tablet] inFLIXimab [Remicade] 600 mg IV Q180D 09/30/16 07/09/19 History Cabozantinib S-Malate [Cabometyx] 20 mg PO DIRECTED 05/14/19 07/09/19 History Carvedilol [Coreg] 6.25 mg PO BID 07/09/19 07/09/19 History Enalapril [Vasotec] 5 mg PO HS 07/09/19 07/09/19 History Pravastatin Sodium [Pravachol] 40 mg PO HS 07/09/19 07/09/19 History Allergies Allergy/AdvReac Type Severity Reaction Status Date / Time No Known Allergies Allergy Verified 07/09/19 14:18 Physical Exam Vitals: Vital Signs Temp Pulse Resp BP Pulse Ox 07/09/19 15:07 97.3 F L 83 18 129/61 98 07/09/19 14:57 97 F L 18 125/64 99 07/09/19 11:08 97.9 F 100 18 101/55 100 Intake and Output 07/09/19 07/09/19 07/09/19 06:59 14:59 22:59 Intake Total 0 Balance 0 Intake: Blood Product 0 Rc As-1 Unit 0 [id number] Other: Weight 82.554 kg Head normocephalic, pallor Neck supple Lungs clear to auscultation bilaterally no wheezing or crackles Heart regular rate and rhythm S1-S2, no rub or gallop Abdomen is soft nontender nondistended positive bowel sounds no hepatosplenomegaly. Right upper quadrant tenderness to palpation Extremities no edema Neuro alert and orientated to 3 Results CBC & Chem 7: 07/09/19 12:10 07/09/19 12:10 Labs: Abnormal Lab Results - Last 24 Hours (Table) 07/09/19 07/09/19 07/09/19 Range/Units 12:10 12:10 12:10 RBC 1.72 L (4.30-5.90) m/uL Hgb 5.7 L* (13.0-17.5) gm/dL Hct 16.7 L* (39.0-53.0) % RDW 19.9 H (11.5-15.5) % Plt Count 90 L (150-450) k/uL Monocytes # (Manual) 1.26 H (0-1.0) k/uL INR 1.2 H (<1.2) BUN 32 H (9-20) mg/dL Glucose 170 H (74-99) mg/dL Total Bilirubin 1.5 H (0.2-1.3) mg/dL AST 91 H (17-59) U/L Alkaline Phosphatase 164 H (38-126) U/L Crossmatch 07/09/19 Range/Units 12:10 RBC (4.30-5.90) m/uL Hgb (13.0-17.5) gm/dL Hct (39.0-53.0) % RDW (11.5-15.5) % Plt Count (150-450) k/uL Monocytes # (Manual) (0-1.0) k/uL INR (<1.2) BUN (9-20) mg/dL Glucose (74-99) mg/dL Total Bilirubin (0.2-1.3) mg/dL AST (17-59) U/L Alkaline Phosphatase (38-126) U/L Crossmatch See Detail Assessment and Plan Assessment: 1. Anemia secondary to GI bleed. Stool positive for occult blood. Patient reports less dark tarry stool on Monday07/06/2019. Hemoglobin 5.7. 2 units of PRBCs have been ordered. GI services consulted. Patient maintained on clear liquid diet 2. History of liver cancer with metastatic disease. Patient reports he follows with Dr. Cote out of [facility]. Patient's reports that current chemotherapy is currently on hold due to dental procedure planned. Oncology service is consulted 3. thrombocytopenia secondary to cancer chemotherapy. platelets 90 4. Diabetes mellitus type 2. Metformin on hold sliding scale insulin ordered 5. Essential hypertension. Home meds resumed with parameters 6. History of CVA 7. History of hearing disorder 8. Hyperlipidemia 9. Essential hypertension 10. Prostate disorder 11. History of cholecystectomy 12. History of anxiety DVT prophylaxis SCDs. GI prophylaxis Protonix Oncology, GI and critical care service is consulted Continue to monitor hemoglobin closely Patient will be admitted to the intensive care unit Time with Patient: Greater than 30 (Greater than 60% of the total time spent in counseling and coordination of care. I performed an examination of the patient and discussed their management with the Nurse Practitioner. I have reviewed the Nurse Practitioner's notes and agree with the documented findings and plan of care)
[2019-07-09 15:54] LABS: Anisocytosis (M) Present; Lymphocytes # (M) 1.72 k/uL (1.0-4.8); Metamyelocytes # (M) 0.13 k/uL (0); Metamyelocytes % 3 %; Monocytes # (M) 1.32 k/uL (0-1.0); Neutrophils % (M) 28 %; Nucleated Red Blood Cells 0 /100 WBC (0-0); Poikilocytosis (M) Present; Total Cells Counted 100
[2019-07-09 15:55] LABS: Hypochromasia (M) Present; Polychromasia Present
[2019-07-09 16:26] LABS: Glucose,Whole Blood 106 mg/dL (75-99)
[2019-07-09 16:39] VITALS: BMI 24.7
[2019-07-09] MEDS: CARVEDILOL 6.25 MG TAB PO SCH (17:13)
[2019-07-09] MEDS: INSULIN ASPART (NovoLOG) 100 UNIT/ML VIAL SQ SCH ×2 (17:13→21:03)
--- NOTE | 2019-07-09 18:46 | P.CNPUL ---
History of Present Illness Consult date: 07/09/19 Requesting physician: Sammi Pickering Reason for consult: other (Critical care management) Chief complaint: Generalized weakness, fatigue, black tarry stool History of present illness: This is a very pleasant 79-year-old gentleman who follows with Dr. Calderon as his primary care physician. He has a history of previous CVA/TIA, diabetes mellitus, hypertension, hyperlipidemia, sleep apnea, hard of hearing. He has a remote 20 year smoking history however quit 30 years ago, sleep apnea intolerant to CPAP, psoriatic arthritis currently on Remicade. He was found to have hepatocellular carcinoma diagnosed by FNA here in October 2016. He has been on several different kinds of chemotherapy. Most recently Cabometyx/cabozantinib. He follows with Dr. Baker at [facility]. His treatment is currently on hold since 06/19/2019 as the patient is needing lower teeth extractions. On 07/06/2019 patient had noted a black tarry stool. He declined to come into the emergency per his 's request. Since that time he has had ongoing weakness fatigue and poor appetite. He did come into the emergency room today was found to be quite anemic with a hemoglobin of 5.3. Stool was positive for occult blood. He was admitted to the intensive care unit for the same. He is seen tonight in the ICU. He is receiving 2 units of packed red blood cells. He is currently awake and alert in no acute distress. Maintaining good O2 saturations on room air. He's been afebrile. Hemodynamically stable. He received 1 unit of fluid resuscitation. 0.9 normal saline at 100 ML's per hour. White count 4.4. Platelet count 60,000. Sodium 140. Potassium 3.6. Creatinine 0.68. Troponin negative 1. Chest x-ray shows no acute cardiopulmonary process. Review of Systems REVIEW OF SYSTEMS: CONSTITUTIONAL: Denies any recent significant weight loss or weight gain. EYES: Denies change in vision. EARS, NOSE, MOUTH, THROAT: Denies headaches, denies sore throat. CARDIOVASCULAR: Denies chest pain, palpitations or syncopal episodes. RESPIRATORY: Denies shortness of breath, cough, congestion or hemoptysis. GASTROINTESTINAL: Positive for black tarry stool, poor appetite GENITOURINARY: Denies hematuria, denies infections. MUSKULOSKELETAL: Denies pain, denies swelling. INTEGUMENTARY: Denies rash, denies eczema. NEUROLOGICAL: Denies recent memory loss, no recent seizure activity. PSYCHIATRIC: Denies anxiety, denies depression. HEMATOLOGIC/LYMPHATIC: Denies anemia, denies enlarged lymph nodes. Past Medical History Past Medical History: Blood Disorder, Cancer, Chest Pain / Angina, COPD, CVA/TIA, Diabetes Mellitus, GERD/Reflux, Hearing Disorder / Deafness, Hyperlipidemia, Hypertension, Liver Disease, Prostate Disorder, Sleep Apnea/CPAP/BIPAP Additional Past Medical History / Comment(s): DIFF HEARING R&L/HEART MURMUR/POOR CIRCULATION/ENLARGED HEART/BRADYCARDIA/PSORIASIS/EMPHYSEMA/FATTY LIVER. LOW PLATELETS. Liver Cancer 2017, ARTHRITIS History of Any Multi-Drug Resistant Organisms: None Reported Past Surgical History: Cholecystectomy, Heart Catheterization, Hernia Repair Additional Past Surgical History / Comment(s): BRONCHOSCOPY/CATARACT REMOVAL L&R/EGD/COLONOSCOPY/RT KNEE ARTHROSCOPIC /BULLETS REMOVED FROM LT ARM AND CHEST 1970'S/CIRCUMCISION, LIVER BIOPSY Past Anesthesia/Blood Transfusion Reactions: No Reported Reaction Past Psychological History: Anxiety Smoking Status: Former smoker Past Alcohol Use History: None Reported Additional Past Alcohol Use History / Comment(s): QUIT DRINKING 30 YEARS AGO. Past Drug Use History: None Reported - Past Family History Father Family Medical History: Cancer Additional Family Medical History / Comment(s): PROSTATE CANCER Brother(s) Family Medical History: Cancer Additional Family Medical History / Comment(s): COLON CANCER. Medications and Allergies Home Medications Medication Instructions Recorded Confirmed Type Furosemide [Lasix] 20 mg PO DAILY 01/21/14 07/09/19 History HYDROcodone/APAP 10-325MG [[place] 1 tab PO TID PRN 01/21/14 07/09/19 History 10-325] Potassium Chloride ER [K-Dur 10] 10 meq PO DAILY 01/21/14 07/09/19 History metFORMIN HCL [Glucophage] 850 mg PO HS 01/21/14 07/09/19 History Cyclobenzaprine [Flexeril] 10 mg PO HS PRN 07/05/16 07/09/19 History Gabapentin [Neurontin] 800 mg PO HS 07/05/16 07/09/19 History Tamsulosin [Flomax] 0.4 mg PO HS 07/05/16 07/09/19 History Cholecalciferol [Vitamin D3] 5,000 unit PO DAILY 09/30/16 07/09/19 History Multivit-Min/FA/Lycopen/Lutein 1 tab PO DAILY 09/30/16 07/09/19 History [Centrum Silver Tablet] inFLIXimab [Remicade] 600 mg IV Q180D 09/30/16 07/09/19 History Cabozantinib S-Malate [Cabometyx] 20 mg PO DIRECTED 05/14/19 07/09/19 History Carvedilol [Coreg] 6.25 mg PO BID 07/09/19 07/09/19 History Enalapril [Vasotec] 5 mg PO HS 07/09/19 07/09/19 History Pravastatin Sodium [Pravachol] 40 mg PO HS 07/09/19 07/09/19 History Allergies Allergy/AdvReac Type Severity Reaction Status Date / Time No Known Allergies Allergy Verified 07/09/19 14:18 Physical Exam Vitals: Vital Signs Temp Pulse Resp BP Pulse Ox 07/09/19 18:00 76 11 L 113/49 99 07/09/19 17:59 97.7 F 75 14 117/52 100 07/09/19 17:30 75 12 95/78 99 07/09/19 17:29 97.7 F 79 15 110/55 100 07/09/19 17:19 97.6 F 81 14 95/48 99 07/09/19 17:00 74 13 119/56 98 07/09/19 16:58 98 F 75 17 119/56 99 07/09/19 16:30 78 22 121/59 98 07/09/19 16:24 98 F 87 12 121/59 97 07/09/19 16:12 98 F 07/09/19 16:08 97.5 F L 83 18 129/60 100 07/09/19 15:37 97.9 F 81 18 127/64 100 07/09/19 15:07 97.3 F L 83 18 129/61 98 07/09/19 14:57 97 F L 18 125/64 99 07/09/19 11:08 97.9 F 100 18 101/55 100 Intake and Output 07/09/19 07/09/19 07/09/19 06:59 14:59 22:59 Intake Total 0 410 Output Total 0 Balance 0 410 Intake: IV 100 Sodium Chloride 0.9% 1, 100 000 ml @ 100 mls/hr IV . Q10H STA Rx#:[id number] Blood Product 0 310 Rc As-1 Unit 0 310 [id number] Rc As-1 Unit 0 [id number] Output: Urine 0 Other: Voiding Method Urinal Weight 82.554 kg GENERAL EXAM: Alert, pleasant 79-year-old gentleman, comfortable in no apparent distress. HEAD: Normocephalic. EYES: Normal reaction of pupils, equal size. NOSE: Clear with pink turbinates. THROAT: No erythema or exudates. NECK: No masses, no JVD. CHEST: No chest wall deformity. Left MediPort in place. LUNGS: Equal air entry with no crackles, wheeze, rhonchi or dullness. CVS: S1 and S2 normal with no audible murmur, regular rhythm. ABDOMEN: No hepatosplenomegaly, normal bowel sounds, no guarding or rigidity. SPINE: No scoliosis or deformity SKIN: No rashes CENTRAL NERVOUS SYSTEM: No focal deficits, tone is normal in all 4 extremities. EXTREMITIES: There is no peripheral edema. No clubbing, no cyanosis. Peripheral pulses are intact. Results - Laboratory Findings CBC and BMP: 07/09/19 14:46 07/09/19 12:10 PT/INR, D-dimer PT 12.0 sec (9.0-12.0) 07/09/19 12:10 INR 1.2 (<1.2) H 07/09/19 12:10 Abnormal lab findings: Abnormal Labs 07/09/19 07/09/19 07/09/19 12:10 12:10 12:10 RBC 1.72 L Hgb 5.7 L* Hct 16.7 L* RDW 19.9 H Plt Count 90 L Neutrophils # (Manual) Monocytes # (Manual) 1.26 H Metamyelocytes # (Man) INR 1.2 H BUN 32 H Glucose 170 H POC Glucose (mg/dL) Total Bilirubin 1.5 H AST 91 H Alkaline Phosphatase 164 H Crossmatch 07/09/19 07/09/19 07/09/19 12:10 14:46 16:24 RBC 1.60 L Hgb 5.3 L* Hct 15.8 L* RDW 19.6 H Plt Count 60 L Neutrophils # (Manual) 1.23 L Monocytes # (Manual) 1.32 H Metamyelocytes # (Man) 0.13 H INR BUN Glucose POC Glucose (mg/dL) 106 H Total Bilirubin AST Alkaline Phosphatase Crossmatch See Detail - Diagnostic Findings Chest x-ray: image reviewed Assessment and Plan Assessment: 1 acute gastrointestinal bleeding with black tarry stools and hemoglobin of 5.3. 2 anemia secondary to above currently receiving 2 units of packed red blood yola ls. Last EGD/colonoscopy 3 years ago within normal limits 3 hepatocellular carcinoma diagnosed in 2017 currently maintained on Cabometyx/cabozantinib 4 thrombocytopenia, platelet count 60,000 5 psoriatic arthritis, on Remicade 6 diabetes mellitus 7 hypertension, history of 8 hyperlipidemia 9 remote history of tobacco dependence for 20 years however quit 30 years ago 10 obstructive sleep apnea intolerant to CPAP Plan The patient was seen and evaluated by Dr. Bautista. Chest x-ray and labs reviewed. Complete 2 units packed red blood cells. Monitor hemoglobin and platelets. Continue 0.9 at 100 ML's per hour. IV Protonix. GI consult pending. Continue to monitor him here closely in the intensive care unit. We'll continue to follow and make further recommendations based on his clinical status. I, the cosigning physician, performed a history & physical examination of the patient. Lungs sounds are clear. Maintaining good O2 saturations in the 90s on room air. I discussed the assessment and plan of care with my nurse practitioner, Janell Bernstein. I attest to the above note as dictated by her. Time with Patient: Greater than 30
--- NOTE | 2019-07-09 19:20 | P.CONS ---
History of Present Illness - Reason for Consult Consult date: 07/09/19 anemia, HCC Requesting physician: Sylvie Steven - Chief Complaint black stool, weakness - History of Present Illness Mr. Vivar is a very pleasant 79-year-old male who is admitted for progressive weakness. This is status post 11 day of black stools 3 days ago. Patient denies any black stool since, he denies any other bleeding. Patient denied any injury, otherwise was feeling rather well. Patient has been on treatment for hepatocellular carcinoma diagnosed in 2017 patient has had chemoembolization, Y90 redioemboloization, Nexavar, opdivo and most recently, cabometyx. It is currrently been on hold for 3 weeks as pt had plans for dental procedures. Pt has only taken about 35 days of the drug in 3 months as he required a dose reduction and a one month hiatus because of significant SE. Patient has never been told he was anemic before, his hemoglobin is typically in the 11 range. Patient's thrombocytopenia is persistent but not progressive. Patient is treated with Remicade for psoriatic arthritis about every 6 weeks. He denied any fevers, chills, he will have occasional epistaxis, nothing profound, easily achieved hemostasis, no hemoptysis, nausea, vomiting, difficulty in breathing, abdominal bloating or discomfort, no hematuria, after S aturday's episode he has had no further abnormally colored stools, swelling, rashes, petechiae, or pain. Review of Systems 14 point review of systems is negative except as stated in HPI Past Medical History Past Medical History: Blood Disorder, Cancer, Chest Pain / Angina, COPD, CVA/TIA, Diabetes Mellitus, GERD/Reflux, Hearing Disorder / Deafness, Hyperlipidemia, Hypertension, Liver Disease, Prostate Disorder, Sleep Apnea/CPAP/BIPAP Additional Past Medical History / Comment(s): DIFF HEARING R&L/HEART MURMUR/POOR CIRCULATION/ENLARGED HEART/BRADYCARDIA/PSORIASIS/EMPHYSEMA/FATTY LIVER. LOW PLATELETS. Liver Cancer 2017, psoriatic arthritis History of Any Multi-Drug Resistant Organisms: None Reported Past Surgical History: Cholecystectomy, Heart Catheterization, Hernia Repair Additional Past Surgical History / Comment(s): BRONCHOSCOPY/CATARACT REMOVAL L&R/EGD/COLONOSCOPY/RT KNEE ARTHROSCOPIC /BULLETS REMOVED FROM LT ARM AND CHEST /CIRCUMCISION, LIVER BIOPSY Past Anesthesia/Blood Transfusion Reactions: No Reported Reaction Past Psychological History: Anxiety Smoking Status: Former smoker Past Alcohol Use History: None Reported Additional Past Alcohol Use History / Comment(s): QUIT DRINKING 30 YEARS AGO. Past Drug Use History: None Reported - Past Family History Father Family Medical History: Cancer Additional Family Medical History / Comment(s): PROSTATE CANCER Brother(s) Family Medical History: Cancer Additional Family Medical History / Comment(s): COLON CANCER. Son(s) Family Medical History: Liver Disease (Non EtOH cirrhosis, required transplant at 8 years old) Medications and Allergies Home Medications Medication Instructions Recorded Confirmed Type Furosemide [Lasix] 20 mg PO DAILY 01/21/14 07/09/19 History HYDROcodone/APAP 10-325MG [[place] 1 tab PO TID PRN 01/21/14 07/09/19 History 10-325] Potassium Chloride ER [K-Dur 10] 10 meq PO DAILY 01/21/14 07/09/19 History metFORMIN HCL [Glucophage] 850 mg PO HS 01/21/14 07/09/19 History Cyclobenzaprine [Flexeril] 10 mg PO HS PRN 07/05/16 07/09/19 History Gabapentin [Neurontin] 800 mg PO HS 07/05/16 07/09/19 History Tamsulosin [Flomax] 0.4 mg PO HS 07/05/16 07/09/19 History Cholecalciferol [Vitamin D3] 5,000 unit PO DAILY 09/30/16 07/09/19 History Multivit-Min/FA/Lycopen/Lutein 1 tab PO DAILY 09/30/16 07/09/19 History [Centrum Silver Tablet] inFLIXimab [Remicade] 600 mg IV Q180D 09/30/16 07/09/19 History Cabozantinib S-Malate [Cabometyx] 20 mg PO DIRECTED 05/14/19 07/09/19 History Carvedilol [Coreg] 6.25 mg PO BID 07/09/19 07/09/19 History Enalapril [Vasotec] 5 mg PO HS 07/09/19 07/09/19 History Pravastatin Sodium [Pravachol] 40 mg PO HS 07/09/19 07/09/19 History Allergies Allergy/AdvReac Type Severity Reaction Status Date / Time No Known Allergies Allergy Verified 07/09/19 14:18 Physical Exam Vitals: Vital Signs Temp Pulse Resp BP Pulse Ox 07/09/19 17:29 97.7 F 79 15 110/55 100 07/09/19 17:19 97.6 F 81 14 95/48 99 07/09/19 17:00 74 13 119/56 98 07/09/19 16:58 98 F 75 17 119/56 99 07/09/19 16:30 78 22 121/59 98 07/09/19 16:24 98 F 87 12 121/59 97 07/09/19 16:12 98 F 07/09/19 16:08 97.5 F L 83 18 129/60 100 07/09/19 15:37 97.9 F 81 18 127/64 100 07/09/19 15:07 97.3 F L 83 18 129/61 98 07/09/19 14:57 97 F L 18 125/64 99 07/09/19 11:08 97.9 F 100 18 101/55 100 Intake and Output 07/09/19 07/09/19 07/09/19 06:59 14:59 22:59 Intake Total 0 410 Balance 0 410 Intake: IV 100 Sodium Chloride 0.9% 1, 100 000 ml @ 100 mls/hr IV . Q10H STA Rx#:[id number] Blood Product 0 310 Rc As-1 Unit 0 310 [id number] Rc As-1 Unit 0 [id number] Other: Voiding Method Urinal Weight 82.554 kg - Constitutional General appearance: average body habitus, cooperative, no acute distress - EENT Eyes: anicteric sclerae, EOMI ENT: hearing grossly normal, normal oropharynx - Neck Neck: no lymphadenopathy - Respiratory Respiratory: bilateral: CTA - Cardiovascular Rhythm: regular Heart sounds: normal: S1, S2 Abnormal Heart Sounds: no systolic murmur, no diastolic murmur, no rub, no S3 Gallop, no S4 Gallop, no click, no other leg Peripheral Edema: bilateral: None - Gastrointestinal Right upper quadrant firmness General gastrointestinal: no absent bowel sounds, no decreased bowel sounds, no distended, no hepatomegaly, no hyperactive bowel sounds, normal bowel sounds, no organomegaly, no rigid, no scaphoid, soft, no splenomegaly, no tenderness, no umbilical hernia, no ventral hernia - Neurologic Neurologic: CNII-XII intact - Musculoskeletal Musculoskeletal: strength equal bilaterally - Psychiatric Psychiatric: A&O x's 3, appropriate affect, intact judgment & insight Results CBC & Chem 7: 07/09/19 14:46 07/09/19 12:10 Labs: Abnormal Lab Results - Last 24 Hours (Table) 07/09/19 07/09/19 07/09/19 Range/Units 12:10 12:10 12:10 RBC 1.72 L (4.30-5.90) m/uL Hgb 5.7 L* (13.0-17.5) gm/dL Hct 16.7 L* (39.0-53.0) % RDW 19.9 H (11.5-15.5) % Plt Count 90 L (150-450) k/uL Neutrophils # (Manual) (1.3-7.7) k/uL Monocytes # (Manual) 1.26 H (0-1.0) k/uL Metamyelocytes # (Man) (0) k/uL INR 1.2 H (<1.2) BUN 32 H (9-20) mg/dL Glucose 170 H (74-99) mg/dL POC Glucose (mg/dL) (75-99) mg/dL Total Bilirubin 1.5 H (0.2-1.3) mg/dL AST 91 H (17-59) U/L Alkaline Phosphatase 164 H (38-126) U/L Crossmatch 07/09/19 07/09/19 07/09/19 Range/Units 12:10 14:46 16:24 RBC 1.60 L (4.30-5.90) m/uL Hgb 5.3 L* (13.0-17.5) gm/dL Hct 15.8 L* (39.0-53.0) % RDW 19.6 H (11.5-15.5) % Plt Count 60 L (150-450) k/uL Neutrophils # (Manual) 1.23 L (1.3-7.7) k/uL Monocytes # (Manual) 1.32 H (0-1.0) k/uL Metamyelocytes # (Man) 0.13 H (0) k/uL INR (<1.2) BUN (9-20) mg/dL Glucose (74-99) mg/dL POC Glucose (mg/dL) 106 H (75-99) mg/dL Total Bilirubin (0.2-1.3) mg/dL AST (17-59) U/L Alkaline Phosphatase (38-126) U/L Crossmatch See Detail Chest x-ray: report reviewed Assessment and Plan (1) Bicytopenia Narrative/Plan: Anemia is acute. Patient is being transfused with 2 units of blood. Patient had black stools 1 day, this has subsided. Pending CBC in the a.m. to see if Hgb stable. Did speak with lab. Anemia workup was requested on blood prior to transfusion. Acute Gastrointestinal bleed as suggested by reported symptoms, occult positive, Hgb typically in 11 range, 5.3 on admit. GI consult pending. Anticipate endoscopy in the future (pt would like to do outpatient) Patient's hepatocellular carcinoma treatment, cabometyx, is a VEGF inhibitor, risks do include hemorrhage. This has been on hold for about 3 weeks pending dental procedures. We'll get a hold of Dr. Perry's office to discuss case. This event could preclude patient from resuming cabometyx (he was on lowest dose), but that will be determined by primary Oncologist. Current Visit: Yes Status: Acute Priority: High Code(s): D75.89 - OTHER SPECIFIED DISEASES OF BLOOD AND BLOOD-FORMING ORGANS SNOMED Code(s): 66942937 (2) Liver cancer Narrative/Plan: Patient has been on treatment for nearly 3 years now. Most recently he was guillermina nning on having radiation to 1 suspicious lymph node in the perihepatic area, but, he states that within one month the number of suspicious lymph nodes had increased to the point that radiation was no longer an option. Patient has had multiple types of therapies. He is wanting to know prognosis and what further treatment options there are. Again, plan is to contact Primary Oncologist to get patient's questions answered. AFP ordered. Cont to hold cabometyx Current Visit: Yes Status: Chronic Priority: Medium Code(s): C22.9 - MALIG NEOPLASM OF LIVER, NOT SPECIFIED PRIMARY OR SEC SNOMED Code(s): 07336832
[2019-07-09 20:40] LABS: Glucose,Whole Blood 142 mg/dL (75-99)
[2019-07-09] MEDS: TAMSULOSIN 0.4 MG CAP.ER.24H PO SCH (21:03)
[2019-07-09] MEDS: PRAVASTATIN SODIUM 40 MG TAB PO SCH (21:03)
[2019-07-09] MEDS: LISINOPRIL 10 MG TAB PO SCH (21:03)
[2019-07-09] MEDS: GABAPENTIN 400 MG CAP PO SCH (21:03)
[2019-07-09 23:48] LABS: % Iron Saturation 29.12 (15.00-50.00)
[2019-07-10 00:10] LABS: Ferritin 346.6 ng/mL (22.0-322.0)
[2019-07-10 01:13] LABS: Anisocytosis Moderate; MCH 32.6 pg (25.0-35.0); MCHC 34.6 g/dL (31.0-37.0); MCV 94.3 fL (80.0-100.0); Macrocytosis Slight; Mean Platelet Volume 10.5; Poikilocytosis Slight; RBC 1.92 m/uL (4.30-5.90); RDW 20.2 % (11.5-15.5); WBC 3.9 k/uL (3.8-10.6)
[2019-07-10 01:15] LABS: HCT 18.1 % (39.0-53.0); HGB 6.3 gm/dL (13.0-17.5); Platelet Count 44 k/uL (150-450)
[2019-07-10] MEDS: HYDROcodone/APAP 10-325MG 1 EACH TAB PO PRN ×3 (01:48→20:45)
[2019-07-10 06:15] LABS: Anisocytosis Slight; HGB 7.3 gm/dL (13.0-17.5); MCH 32.2 pg (25.0-35.0); MCHC 34.6 g/dL (31.0-37.0); MCV 93.2 fL (80.0-100.0); Macrocytosis Slight; Mean Platelet Volume 8.7; Poikilocytosis Slight; RBC 2.26 m/uL (4.30-5.90); RDW 19.5 % (11.5-15.5); WBC 3.7 k/uL (3.8-10.6)
[2019-07-10 06:31] LABS: Platelet Count 55 k/uL (150-450)
[2019-07-10 06:54] LABS: ALT 69 U/L (21-72); AST 76 U/L (17-59); African American GFR (CKD) >90 (>60 ml/min/1.73 sqM); Albumin 2.8 g/dL (3.5-5.0); Alkaline Phosphatase 137 U/L (38-126); Anion Gap 7 mmol/L; Blood Urea Nitrogen 20 mg/dL (9-20); Calcium 7.9 mg/dL (8.4-10.2); Carbon Dioxide 26 mmol/L (22-30); Chloride 107 mmol/L (98-107); Glucose 93 mg/dL (74-99); Potassium 3.5 mmol/L (3.5-5.1); Sodium 140 mmol/L (137-145); Total Protein 6.3 g/dL (6.3-8.2)
[2019-07-10 07:03] LABS: Glucose,Whole Blood 100 mg/dL (75-99)
[2019-07-10 07:05] LABS: Band Neutrophils % 3 %; Eosinophils # (M) 0.07 k/uL (0-0.7); Lymphocytes # (M) 1.04 k/uL (1.0-4.8); Monocytes # (M) 1.59 k/uL (0-1.0); Neutrophils % (M) 24 %; Nucleated Red Blood Cells 0 /100 WBC (0-0); Total Cells Counted 100
[2019-07-10] MEDS: INSULIN ASPART (NovoLOG) 100 UNIT/ML VIAL SQ SCH ×4 (07:42→21:24)
[2019-07-10] MEDS: CARVEDILOL 6.25 MG TAB PO SCH ×3 (07:53→17:32)
[2019-07-10] MEDS: CHOLECALCIFEROL 1,000 UNIT TAB PO SCH (08:03)
[2019-07-10] MEDS: POTASSIUM CHLORIDE ER 10 MEQ TAB.ER.PRT PO SCH (08:03)
[2019-07-10] MEDS: FUROSEMIDE 20 MG TAB PO SCH (08:03)
[2019-07-10] MEDS ORDERED: PANTOPRAZOLE 40 MG/10 ML VIAL IVP SCH ×2 (09:00→21:00)
[2019-07-10 11:36] LABS: Alpha Fetoprotein, Tumor Mkr 254.4 ng/mL (0.0-7.9)
[2019-07-10 11:48] LABS: Rheumatoid Factor, Qnt <4 IU/mL (0-15)
[2019-07-10 12:03] LABS: Glucose,Whole Blood 107 mg/dL (75-99)
--- NOTE | 2019-07-10 12:08 | P.PN ---
Subjective Progress Note Date: 07/10/19 This is a 79-year-old male patient of Dr. Calderon. Patient presented with complaints of increased weakness and potential GI bleed. Patient reports that he had a dark tarry stool on Monday. At that time patient refused to go to ER per . Patient became increasingly weak over the past few days. Patient complains of generalized right upper quadrant and flank pain which is chronic per patient related to his known liver cancer. Patient has metastatic liver cancer in which he follows with Dr. Baker at [facility]. Patient reports he just has been feeling very weak and tired. Hemoglobin upon arrival he 5.7 patient denies any nausea or vomiting but does report decreased appetite. Additional medical history includes liver cancer in which she is currently on chemotherapy therapy. Per patient's chemotherapy has been on hold for dental procedure. Chest x-ray completed showing no acute cardiopulmonary process. Patchy midlung densities appear to be represent pleural calcifications when correlated with the CT of 10/15/2016. Patient reports last colonoscopy was approximately [address] Phelps. Additional medical history includes chronic thrombocytopenia, CVA, diabetes mellitus, GERD, hearing disorder, hyperlipidemia, hypertension, prostate disorder, cholecystectomy and anxiety. Hgb5.7, platelets 90. Stool for occult blood positive. At this time to unit PRBCs have been ordered. Patient will be admitted to the intensive care unit. GI, oncology and critical care service is consulted. Vitals are stable at this time. At this time patient denies chest pain or shortness of breath. Patient denies nausea vomiting or diarrhea. Patient denies any urinary burning or frequency On 07/10/2019 Hemoglobin 7.3 this AM. Patient did receive 3 units of PRBCs. Patient is alert and oriented 3. Patient still complaining of some chronic upper right abdominal pain. Vitals have remained stable. GI oncology and critical care service is following. At this time patient denies chest pain or shortness of breath. Patient denies nausea vomiting or diarrhea. Patient den ies any urinary burning or frequency. Objective - Vital Signs Vital signs: Vital Signs Temp 97.6 F 07/10/19 08:00 Pulse 57 L 07/10/19 11:00 Resp 12 07/10/19 11:00 BP 104/47 07/10/19 11:00 Pulse Ox 98 07/10/19 11:00 Intake & Output 11/01/2007/10/19 07/10/19 18:59 06:59 18:59 Intake Total 410 2260 500 Output Total 0 450 Balance 410 1810 500 Weight 82.554 kg 92.6 kg Intake: IV 100 1200 500 Sodium Chloride 0.9% 1, 100 1200 500 000 ml @ 100 mls/hr IV . Q10H STA Rx#:[id number] Oral 240 Blood Product 310 620 Rc As-1 Unit 310 [id number] Rc As-1 Unit 310 [id number] Rc As-1 Unit 0 310 [id number] Other 200 Rc As-1 Unit 200 [id number] Rc As-1 Unit 0 [id number] Output: Urine 0 450 Other: Voiding Method Urinal Urinal Urinal # Voids 1 - Exam Head normocephalic, pallor Neck supple Lungs clear to auscultation bilaterally no wheezing or crackles Heart regular rate and rhythm S1-S2, no rub or gallop Abdomen is soft nontender nondistended positive bowel sounds no hepatosplenomegaly. Right upper quadrant tenderness to palpation Extremities no edema Neuro alert and orientated to 3 - Labs CBC & Chem 7: 07/10/19 06:02 07/10/19 06:02 Labs: Abnormal Lab Results - Last 24 Hours (Table) 07/09/19 07/09/19 07/09/19 Range/Units 12:10 12:10 12:10 WBC (3.8-10.6) k/uL RBC 1.72 L (4.30-5.90) m/uL Hgb 5.7 L* (13.0-17.5) gm/dL Hct 16.7 L* (39.0-53.0) % RDW 19.9 H (11.5-15.5) % Plt Count 90 L (150-450) k/uL Neutrophils # (Manual) (1.3-7.7) k/uL Monocytes # (Manual) 1.26 H (0-1.0) k/uL Metamyelocytes # (Man) (0) k/uL INR 1.2 H (<1.2) BUN 32 H (9-20) mg/dL Creatinine (0.66-1.25) mg/dL Glucose 170 H (74-99) mg/dL POC Glucose (mg/dL) (75-99) mg/dL Calcium (8.4-10.2) mg/dL Ferritin (22.0-322.0) ng/mL Total Bilirubin 1.5 H (0.2-1.3) mg/dL AST 91 H (17-59) U/L Alkaline Phosphatase 164 H (38-126) U/L Albumin (3.5-5.0) g/dL Tumor Marker AFP (0.0-7.9) ng/mL Crossmatch 07/09/19 07/09/19 07/09/19 Range/Units 12:10 14:46 14:46 WBC (3.8-10.6) k/uL RBC 1.60 L (4.30-5.90) m/uL Hgb 5.3 L* (13.0-17.5) gm/dL Hct 15.8 L* (39.0-53.0) % RDW 19.6 H (11.5-15.5) % Plt Count 60 L (150-450) k/uL Neutrophils # (Manual) 1.23 L (1.3-7.7) k/uL Monocytes # (Manual) 1.32 H (0-1.0) k/uL Metamyelocytes # (Man) 0.13 H (0) k/uL INR (<1.2) BUN (9-20) mg/dL Creatinine (0.66-1.25) mg/dL Glucose (74-99) mg/dL POC Glucose (mg/dL) (75-99) mg/dL Calcium (8.4-10.2) mg/dL Ferritin 346.6 H (22.0-322.0) ng/mL Total Bilirubin (0.2-1.3) mg/dL AST (17-59) U/L Alkaline Phosphatase (38-126) U/L Albumin (3.5-5.0) g/dL Tumor Marker AFP (0.0-7.9) ng/mL Crossmatch See Detail 07/09/19 07/09/19 07/10/19 Range/Units 16:24 20:29 01:03 WBC (3.8-10.6) k/uL RBC 1.92 L (4.30-5.90) m/uL Hgb 6.3 L* (13.0-17.5) gm/dL Hct 18.1 L* (39.0-53.0) % RDW 20.2 H (11.5-15.5) % Plt Count 44 L (150-450) k/uL Neutrophils # (Manual) (1.3-7.7) k/uL Monocytes # (Manual) (0-1.0) k/uL Metamyelocytes # (Man) (0) k/uL INR (<1.2) BUN (9-20) mg/dL Creatinine (0.66-1.25) mg/dL Glucose (74-99) mg/dL POC Glucose (mg/dL) 106 H 142 H (75-99) mg/dL Calcium (8.4-10.2) mg/dL Ferritin (22.0-322.0) ng/mL Total Bilirubin (0.2-1.3) mg/dL AST (17-59) U/L Alkaline Phosphatase (38-126) U/L Albumin (3.5-5.0) g/dL Tumor Marker AFP (0.0-7.9) ng/mL Crossmatch 07/10/19 07/10/19 07/10/19 Range/Units 06:02 06:02 06:02 WBC 3.7 L (3.8-10.6) k/uL RBC 2.26 L (4.30-5.90) m/uL Hgb 7.3 L (13.0-17.5) gm/dL Hct 21.0 L (39.0-53.0) % RDW 19.5 H (11.5-15.5) % Plt Count 55 L (150-450) k/uL Neutrophils # (Manual) 0.90 L (1.3-7.7) k/uL Monocytes # (Manual) 1.59 H (0-1.0) k/uL Metamyelocytes # (Man) (0) k/uL INR (<1.2) BUN (9-20) mg/dL Creatinine 0.64 L (0.66-1.25) mg/dL Glucose (74-99) mg/dL POC Glucose (mg/dL) (75-99) mg/dL Calcium 7.9 L (8.4-10.2) mg/dL Ferritin (22.0-322.0) ng/mL Total Bilirubin 2.0 H (0.2-1.3) mg/dL AST 76 H (17-59) U/L Alkaline Phosphatase 137 H (38-126) U/L Albumin 2.8 L (3.5-5.0) g/dL Tumor Marker AFP 254.4 H (0.0-7.9) ng/mL Crossmatch 07/10/19 Range/Units 06:53 WBC (3.8-10.6) k/uL RBC (4.30-5.90) m/uL Hgb (13.0-17.5) gm/dL Hct (39.0-53.0) % RDW (11.5-15.5) % Plt Count (150-450) k/uL Neutrophils # (Manual) (1.3-7.7) k/uL Monocytes # (Manual) (0-1.0) k/uL Metamyelocytes # (Man) (0) k/uL INR (<1.2) BUN (9-20) mg/dL Creatinine (0.66-1.25) mg/dL Glucose (74-99) mg/dL POC Glucose (mg/dL) 100 H (75-99) mg/dL Calcium (8.4-10.2) mg/dL Ferritin (22.0-322.0) ng/mL Total Bilirubin (0.2-1.3) mg/dL AST (17-59) U/L Alkaline Phosphatase (38-126) U/L Albumin (3.5-5.0) g/dL Tumor Marker AFP (0.0-7.9) ng/mL Crossmatch Assessment and Plan Assessment: 1. Anemia secondary to GI bleed. Stool positive for occult blood. Patient reports less dark tarry stool on Monday07/06/2019. Hemoglobin 5.7. 2 units of PRBCs have been ordered. GI services consulted. Patient maintained on clear liquid diet. Received 3 units of PRBCs. Hemoglobin improving 7.3. Awaiting GI input. 2. History of liver cancer with metastatic disease. Patient reports he follows with Dr. Cote out of [facility]. Patient's reports that current chemotherapy is currently on hold due to dental procedure planned. Oncology service is consulted 3. thrombocytopenia secondary to cancer chemotherapy. platelets 90 4. Diabetes mellitus type 2. Metformin on hold sliding scale insulin ordered 5. Essential hypertension. Home meds resumed with parameters 6. History of CVA 7. History of hearing disorder 8. Hyperlipidemia 9. Prostate disorder 10. History of cholecystectomy 11. History of anxiety DVT prophylaxis SCDs. GI prophylaxis Protonix Oncology, GI and critical care service is consulted Continue to monitor hemoglobin closely PT OT consulted I performed an examination of the patient and discussed their management with the Nurse Practitioner. I have reviewed the Nurse Practitioner's notes and agree with the documented findings and plan of care
--- NOTE | 2019-07-10 12:44 | CDI ---
Documentation Clarification Form Date: 07/10/2019 12:32:10 PM From: Felicita Schmitt RN, CCDS Admit Date: 07/09/2019 2:19:00 PM Patient Name: Beltran Vivar Visit Number: [id number] Discharge Date: ATTENTION: The Clinical Documentation Specialists (CDI) and [facility] Coding Staff appreciate your assistance in clarifying documentation. Please respond to the clarification below the line at the bottom and electronically sign. The CDI & [facility] Coding staff will review the response and follow-up if needed. Please note: Queries are made part of the Legal Health Record. If you have any questions, please contact the author of this message via ITS. Dr. Sammi Lim diagnosis of anemia lacks specificity to accurately reflect your patients severity of condition and clarification is needed. History/Risk Factors: Blood Disorder, Liver Cancer, Diabetes Mellitus Clinical indicators: 79-silvia-old present with complaints of weakness and black stools. Patient fecal occult blood was positive. Patient appears very pale generally weak. Vital Signs 101/55 100 18 97.9 Hemoglobin: 5.3, 6.3 Hematocrit: 15.8 18.1 Treatment: 3 units of PRBCs transfused, iron, monitoring CBC GI Consult pending Oncology consult: Bicytopenia, Anemia is acute. Acute gastrointestinal bleed as suggested by reported symptoms, occult positive In order to capture the severity of condition, please clarify the type of anemia and etiology if known: Acute blood loss anemia Acute on chronic blood loss anemia Chronic blood loss anemia Iron deficiency anemia Drug induced anemia Anemia due to malignancy Unable to determine Other, please specify (Last Revision: June 2017) MTDD
--- NOTE | 2019-07-10 14:54 | P.PN ---
Subjective Progress Note Date: 07/10/19 On today's evaluation of 07/10/2019 the patient has received a total of 3 units of packed RBC and hemoglobin is above 7. Doing well. He has no specific complaints. The patient denies having any further bleeding episodes. No melena. No bright blood per rectum. No coffee-ground emesis. No nausea. No vomiting. Abdominal distention or abdominal pain. The patient is hemodynamically stable for now.The patient's hemoglobin today is at 7.3. The patient also had platelet count of 55. Mother the patient is being treated currently for hepatocellular carcinoma that was diagnosed approximately 3 years ago. His previous EGD was back in 2017. Objective - Vital Signs Vital signs: Vital Signs Temp 97.7 F 07/10/19 12:00 Pulse 66 07/10/19 14:00 Resp 13 07/10/19 14:00 BP 111/47 07/10/19 14:00 Pulse Ox 96 07/10/19 14:00 Intake & Output 07/09/19 07/10/19 07/10/19 18:59 06:59 18:59 Intake Total 410 2260 800 Output Total 0 450 900 Balance 410 1810 -100 Weight 82.554 kg 92.6 kg Intake: IV 100 1200 800 Sodium Chloride 0.9% 1, 100 1200 800 000 ml @ 100 mls/hr IV . Q10H STA Rx#:[id number] Oral 240 Blood Product 310 620 Rc As-1 Unit 310 [id number] Rc As-1 Unit 310 [id number] Rc As-1 Unit 0 310 [id number] Other 200 Rc As-1 Unit 200 [id number] Rc As-1 Unit 0 [id number] Output: Urine 0 450 900 Other: Voiding Method Urinal Urinal Urinal # Voids 1 - Exam GENERAL EXAM: Alert, pleasant 79-year-old gentleman, comfortable in no apparent distress. HEAD: Normocephalic. EYES: Normal reaction of pupils, equal size. NOSE: Clear with pink turbinates. THROAT: No erythema or exudates. NECK: No masses, no JVD. CHEST: No chest wall deformity. Left MediPort in place. LUNGS: Equal air entry with no crackles, wheeze, rhonchi or dullness. CVS: S1 and S2 normal with no audible murmur, regular rhythm. ABDOMEN: No hepatosplenomegaly, normal bowel sounds, no guarding or rigidity. SPINE: No scoliosis or deformity SKIN: No rashes CENTRAL NERVOUS SYSTEM: No focal deficits, tone is normal in all 4 extremities. EXTREMITIES: There is no peripheral edema. No clubbing, no cyanosis. Peripheral pulses are intact. - Labs CBC & Chem 7: 07/10/19 06:02 07/10/19 06:02 Labs: Abnormal Lab Results - Last 24 Hours (Table) 07/09/19 07/09/19 07/09/19 Range/Units 12:10 14:46 14:46 WBC (3.8-10.6) k/uL RBC 1.60 L (4.30-5.90) m/uL Hgb 5.3 L* (13.0-17.5) gm/dL Hct 15.8 L* (39.0-53.0) % RDW 19.6 H (11.5-15.5) % Plt Count 60 L (150-450) k/uL Neutrophils # (Manual) 1.23 L (1.3-7.7) k/uL Monocytes # (Manual) 1.32 H (0-1.0) k/uL Metamyelocytes # (Man) 0.13 H (0) k/uL Creatinine (0.66-1.25) mg/dL POC Glucose (mg/dL) (75-99) mg/dL Calcium (8.4-10.2) mg/dL Ferritin 346.6 H (22.0-322.0) ng/mL Total Bilirubin (0.2-1.3) mg/dL AST (17-59) U/L Alkaline Phosphatase (38-126) U/L Albumin (3.5-5.0) g/dL Tumor Marker AFP (0.0-7.9) ng/mL Crossmatch See Detail 07/09/19 07/09/19 07/10/19 Range/Units 16:24 20:29 01:03 WBC (3.8-10.6) k/uL RBC 1.92 L (4.30-5.90) m/uL Hgb 6.3 L* (13.0-17.5) gm/dL Hct 18.1 L* (39.0-53.0) % RDW 20.2 H (11.5-15.5) % Plt Count 44 L (150-450) k/uL Neutrophils # (Manual) (1.3-7.7) k/uL Monocytes # (Manual) (0-1.0) k/uL Metamyelocytes # (Man) (0) k/uL Creatinine (0.66-1.25) mg/dL POC Glucose (mg/dL) 106 H 142 H (75-99) mg/dL Calcium (8.4-10.2) mg/dL Ferritin (22.0-322.0) ng/mL Total Bilirubin (0.2-1.3) mg/dL AST (17-59) U/L Alkaline Phosphatase (38-126) U/L Albumin (3.5-5.0) g/dL Tumor Marker AFP (0.0-7.9) ng/mL Crossmatch 07/10/19 07/10/19 07/10/19 Range/Units 06:02 06:02 06:02 WBC 3.7 L (3.8-10.6) k/uL RBC 2.26 L (4.30-5.90) m/uL Hgb 7.3 L (13.0-17.5) gm/dL Hct 21.0 L (39.0-53.0) % RDW 19.5 H (11.5-15.5) % Plt Count 55 L (150-450) k/uL Neutrophils # (Manual) 0.90 L (1.3-7.7) k/uL Monocytes # (Manual) 1.59 H (0-1.0) k/uL Metamyelocytes # (Man) (0) k/uL Creatinine 0.64 L (0.66-1.25) mg/dL POC Glucose (mg/dL) (75-99) mg/dL Calcium 7.9 L (8.4-10.2) mg/dL Ferritin (22.0-322.0) ng/mL Total Bilirubin 2.0 H (0.2-1.3) mg/dL AST 76 H (17-59) U/L Alkaline Phosphatase 137 H (38-126) U/L Albumin 2.8 L (3.5-5.0) g/dL Tumor Marker AFP 254.4 H (0.0-7.9) ng/mL Crossmatch 07/10/19 07/10/19 Range/Units 06:53 12:02 WBC (3.8-10.6) k/uL RBC (4.30-5.90) m/uL Hgb (13.0-17.5) gm/dL Hct (39.0-53.0) % RDW (11.5-15.5) % Plt Count (150-450) k/uL Neutrophils # (Manual) (1.3-7.7) k/uL Monocytes # (Manual) (0-1.0) k/uL Metamyelocytes # (Man) (0) k/uL Creatinine (0.66-1.25) mg/dL POC Glucose (mg/dL) 100 H 107 H (75-99) mg/dL Calcium (8.4-10.2) mg/dL Ferritin (22.0-322.0) ng/mL Total Bilirubin (0.2-1.3) mg/dL AST (17-59) U/L Alkaline Phosphatase (38-126) U/L Albumin (3.5-5.0) g/dL Tumor Marker AFP (0.0-7.9) ng/mL Crossmatch Assessment and Plan Plan: 1 acute gastrointestinal bleeding with black tarry stools and hemoglobin of 5.3, posttransfusion hemoglobin currently is up to 7.3. Hemodynamically stable. No further bouts of GI bleeding. The patient got transfused with a total of 3 units of packed RBC. 2 anemia secondary to above currently receiving 2 units of packed red blood cells. Last EGD/colonoscopy 3 years ago within normal limits 3 hepatocellular carcinoma diagnosed in 2017 currently maintained on Cabometyx/cabozantinib 4 thrombocytopenia, platelet count 60,000 5 psoriatic arthritis, on Remicade 6 diabetes mellitus 7 hypertension, history of 8 hyperlipidemia 9 remote history of tobacco dependence for 20 years however quit 30 years ago 10 obstructive sleep apnea intolerant to CPAP Plan Hemodynamically stable. Discussed with gastroenterology regarding the possibility of an EGD. Hemoglobin is stable and the patient responded nicely to packed RBC transfusion and hemoglobin Is up to 7.3. Platelet counts are still about 50k. Doing well. Hemodynamically stable. We'll move him out of the [facility] care unit at a later stage.
[2019-07-10 16:56] LABS: Glucose,Whole Blood 119 mg/dL (75-99)
--- NOTE | 2019-07-10 18:04 | P.PN ---
Subjective Progress Note Date: 07/10/19 Principal diagnosis: GI bleed, HCC In follow-up today patient does state feeling better after transfusion, no dark stools to report, no bleeding. He is able to get back and forth to the restroom without too much difficulty. He denies chest pain or pain. Objective - Vital Signs Vital signs: Vital Signs Temp 97.7 F 07/10/19 12:00 Pulse 67 07/10/19 17:00 Resp 11 L 07/10/19 17:00 BP 111/40 07/10/19 17:00 Pulse Ox 100 07/10/19 17:00 Intake & Output 07/09/19 07/10/19 07/10/19 18:59 06:59 18:59 Intake Total 410 2260 1100 Output Total 0 450 1250 Balance 410 1810 -150 Weight 82.554 kg 92.6 kg Intake: IV 100 1200 1100 Sodium Chloride 0.9% 1, 100 1200 1100 000 ml @ 100 mls/hr IV . Q10H STA Rx#:[id number] Oral 240 Blood Product 310 620 Rc As-1 Unit 310 [id number] Rc As-1 Unit 310 [id number] Rc As-1 Unit 0 310 [id number] Other 200 Rc As-1 Unit 200 [id number] Rc As-1 Unit 0 [id number] Output: Urine 0 450 1250 Other: Voiding Method Urinal Urinal Urinal # Voids 1 - Constitutional General appearance: Present: average body habitus, cooperative, no acute di stress - EENT Eyes: Present: anicteric sclerae, EOMI - Respiratory Respiratory: bilateral: CTA - Cardiovascular Heart sounds: normal: S1, S2 - Peripheral edema leg Peripheral Edema: bilateral: None - Gastrointestinal General gastrointestinal: Present: normal bowel sounds, soft - Integumentary Integumentary: Present: pale - Neurologic Neurologic: Present: CNII-XII intact - Musculoskeletal Musculoskeletal: Present: strength equal bilaterally - Psychiatric Psychiatric: Present: A&O x's 3, appropriate affect, intact judgment & insight - Labs CBC & Chem 7: 07/10/19 06:02 07/10/19 06:02 Labs: Abnormal Lab Results - Last 24 Hours (Table) 07/09/19 07/09/19 07/09/19 Range/Units 12:10 14:46 20:29 WBC (3.8-10.6) k/uL RBC (4.30-5.90) m/uL Hgb (13.0-17.5) gm/dL Hct (39.0-53.0) % RDW (11.5-15.5) % Plt Count (150-450) k/uL Neutrophils # (Manual) (1.3-7.7) k/uL Monocytes # (Manual) (0-1.0) k/uL Creatinine (0.66-1.25) mg/dL POC Glucose (mg/dL) 142 H (75-99) mg/dL Calcium (8.4-10.2) mg/dL Ferritin 346.6 H (22.0-322.0) ng/mL Total Bilirubin (0.2-1.3) mg/dL AST (17-59) U/L Alkaline Phosphatase (38-126) U/L Albumin (3.5-5.0) g/dL Tumor Marker AFP (0.0-7.9) ng/mL Crossmatch See Detail 07/10/19 07/10/19 07/10/19 Range/Units 01:03 06:02 06:02 WBC (3.8-10.6) k/uL RBC 1.92 L (4.30-5.90) m/uL Hgb 6.3 L* (13.0-17.5) gm/dL Hct 18.1 L* (39.0-53.0) % RDW 20.2 H (11.5-15.5) % Plt Count 44 L (150-450) k/uL Neutrophils # (Manual) (1.3-7.7) k/uL Monocytes # (Manual) (0-1.0) k/uL Creatinine 0.64 L (0.66-1.25) mg/dL POC Glucose (mg/dL) (75-99) mg/dL Calcium 7.9 L (8.4-10.2) mg/dL Ferritin (22.0-322.0) ng/mL Total Bilirubin 2.0 H (0.2-1.3) mg/dL AST 76 H (17-59) U/L Alkaline Phosphatase 137 H (38-126) U/L Albumin 2.8 L (3.5-5.0) g/dL Tumor Marker AFP 254.4 H (0.0-7.9) ng/mL Crossmatch 07/10/19 07/10/19 07/10/19 Range/Units 06:02 06:53 12:02 WBC 3.7 L (3.8-10.6) k/uL RBC 2.26 L (4.30-5.90) m/uL Hgb 7.3 L (13.0-17.5) gm/dL Hct 21.0 L (39.0-53.0) % RDW 19.5 H (11.5-15.5) % Plt Count 55 L (150-450) k/uL Neutrophils # (Manual) 0.90 L (1.3-7.7) k/uL Monocytes # (Manual) 1.59 H (0-1.0) k/uL Creatinine (0.66-1.25) mg/dL POC Glucose (mg/dL) 100 H 107 H (75-99) mg/dL Calcium (8.4-10.2) mg/dL Ferritin (22.0-322.0) ng/mL Total Bilirubin (0.2-1.3) mg/dL AST (17-59) U/L Alkaline Phosphatase (38-126) U/L Albumin (3.5-5.0) g/dL Tumor Marker AFP (0.0-7.9) ng/mL Crossmatch 07/10/19 Range/Units 16:54 WBC (3.8-10.6) k/uL RBC (4.30-5.90) m/uL Hgb (13.0-17.5) gm/dL Hct (39.0-53.0) % RDW (11.5-15.5) % Plt Count (150-450) k/uL Neutrophils # (Manual) (1.3-7.7) k/uL Monocytes # (Manual) (0-1.0) k/uL Creatinine (0.66-1.25) mg/dL POC Glucose (mg/dL) 119 H (75-99) mg/dL Calcium (8.4-10.2) mg/dL Ferritin (22.0-322.0) ng/mL Total Bilirubin (0.2-1.3) mg/dL AST (17-59) U/L Alkaline Phosphatase (38-126) U/L Albumin (3.5-5.0) g/dL Tumor Marker AFP (0.0-7.9) ng/mL Crossmatch Assessment and Plan (1) Bicytopenia Narrative/Plan: Anemia is acute. hemoglobin is stable today at 7.3, fair response to 3 units with a beginning Hgb of 5.3. Daily monitoring for now. Transfuse for Hgb <7 or if symptomatic Anemia workup was requested and is pending. Testing requested on blood sample drawn prior to transfusion. EGD in AM sched Thrombocytopenia is stable, no acute intervention. Secondary to liver disease. Patient's hepatocellular carcinoma treatment, cabometyx, is a VEGF inhibitor, risks do include hemorrhage. Pending EGD results to discuss with Dr. Perry. If GI bleed is treatable pt may be able to resume cabometyx in the future. Current Visit: Yes Status: Acute Priority: High Code(s): D75.89 - OTHER SPECIFIED DISEASES OF BLOOD AND BLOOD-FORMING ORGANS SNOMED Code(s): 45597029 (2) Liver cancer Narrative/Plan: AFP 254, pt said last AFP was>400 so, better. Cont to hold cabometyx for now Current Visit: Yes Status: Chronic Priority: Medium Code(s): C22.9 - MALIG NEOPLASM OF LIVER, NOT SPECIFIED PRIMARY OR SEC SNOMED Code(s): 03175088
[2019-07-10 18:38] LABS: Anisocytosis Slight; HCT 24.1 % (39.0-53.0); HGB 8.4 gm/dL (13.0-17.5); MCHC 34.9 g/dL (31.0-37.0); MCV 94.7 fL (80.0-100.0); Macrocytosis Slight; Mean Platelet Volume 9.5; Poikilocytosis Slight; RBC 2.55 m/uL (4.30-5.90); RDW 19.4 % (11.5-15.5); WBC 4.3 k/uL (3.8-10.6)
[2019-07-10 18:50] LABS: Platelet Count 64 k/uL (150-450)
[2019-07-10] MEDS: LISINOPRIL 10 MG TAB PO SCH (20:35)
[2019-07-10] MEDS: GABAPENTIN 400 MG CAP PO SCH (20:41)
[2019-07-10] MEDS: PRAVASTATIN SODIUM 40 MG TAB PO SCH (20:41)
[2019-07-10] MEDS: TAMSULOSIN 0.4 MG CAP.ER.24H PO SCH (20:41)
[2019-07-10 21:24] LABS: Glucose,Whole Blood 100 mg/dL (75-99)
[2019-07-11 00:18] LABS: Anisocytosis Slight; HCT 21.7 % (39.0-53.0); HGB 7.4 gm/dL (13.0-17.5); MCH 32.1 pg (25.0-35.0); MCV 94.2 fL (80.0-100.0); Macrocytosis Slight; Mean Platelet Volume 10.3; Poikilocytosis Slight; RBC 2.31 m/uL (4.30-5.90); RDW 19.9 % (11.5-15.5)
[2019-07-11 00:23] LABS: Platelet Count 62 k/uL (150-450)
[2019-07-11 04:59] LABS: Anisocytosis Slight; HCT 22.9 % (39.0-53.0); HGB 7.8 gm/dL (13.0-17.5); MCH 32.6 pg (25.0-35.0); MCHC 34.2 g/dL (31.0-37.0); MCV 95.4 fL (80.0-100.0); Macrocytosis Slight; Mean Platelet Volume 9.2; Poikilocytosis Slight; RDW 19.7 % (11.5-15.5); WBC 3.7 k/uL (3.8-10.6)
[2019-07-11 05:08] LABS: Platelet Count 64 k/uL (150-450)
[2019-07-11 05:12] LABS: ALT 63 U/L (21-72); AST 66 U/L (17-59); African American GFR (CKD) >90 (>60 ml/min/1.73 sqM); Albumin 2.8 g/dL (3.5-5.0); Alkaline Phosphatase 150 U/L (38-126); Anion Gap 7 mmol/L; Blood Urea Nitrogen 9 mg/dL (9-20); Calcium 7.9 mg/dL (8.4-10.2); Carbon Dioxide 24 mmol/L (22-30); Chloride 107 mmol/L (98-107); Glucose 87 mg/dL (74-99); Potassium 3.5 mmol/L (3.5-5.1); Sodium 138 mmol/L (137-145); Total Bilirubin 1.8 mg/dL (0.2-1.3); Total Protein 6.2 g/dL (6.3-8.2)
[2019-07-11] MEDS ORDERED: Potassium Replacement Protocol 1 EACH MISC MISCELLANE PRN (05:33)
[2019-07-11 05:40] LABS: Basophils # (M) 0.04 k/uL (0-0.2); Eosinophils # (M) 0.04 k/uL (0-0.7); Lymphocytes # (M) 0.93 k/uL (1.0-4.8); Monocytes # (M) 1.89 k/uL (0-1.0); Neutrophils % (M) 22 %; Nucleated Red Blood Cells 0 /100 WBC (0-0); Total Cells Counted 100
[2019-07-11 06:54] LABS: Glucose,Whole Blood 85 mg/dL (75-99)
[2019-07-11] MEDS ORDERED: PROPOFOL 10 MG/ML 20 ML VIAL IV ONE (07:43)
[2019-07-11] MEDS ORDERED: LIDOCAINE 1% INJ 10MG/ML (20 ML MDV) ONE (07:43)
[2019-07-11] MEDS ORDERED: IV FLUID CONTINUATION 1,000 ML IV ONE (07:47)
--- NOTE | 2019-07-11 08:08 | P.CONS ---
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 The patient reports feeling weak and fatigued with decreased oral intake over the few days for presentation. He reports black tarry stools at home. The patient is on chemotherapy for treatment of his HCC and followed up at [facility] with the oncology team as well as the hepatology team and Dr. Lizama. He denies any nausea, vomiting, hematemesis or bright red blood per rectum. He has been having dark tarry bowel movements with one snare of black stool today. Hemoglobin found to be 5.[address] atus post 3 units of packed red blood cells he is currently 7.3. Stool did test positive for occult blood. If he 254, total bilirubin 2, alkaline phosphatase 137, AST 76 and ALT 69. EGD in 2017 was significant for gastritis and esophagitis. Last colonoscopy in 2013 significant for diverticulosis. Review of Systems REVIEW OF SYSTEMS: CONSTITUTIONAL: Denies any fevers, chills, weight change but he does report fatigue. CARDIOVASCULAR: Denies any chest pain, palpitations high or low blood pressures RESPIRATORY: Denies any shortness of breath, hemoptysis or cough. GENITOURINARY: No dysuria or hematuria. MUSCULOSKELETAL: No weakness reported. SKIN: Denies any new rashes or lesions, jaundice or pallor. PSYCHIATRIC: Denies any depression or anxiety. NEUROLOGY: Denies headache, denies any new focal deficits. EARS/NOSE/THROAT: No recent hearing change but the patient is hard of hearing baseline, congestion, nasal discharge or sore throat. EYES: No pain in eyes, discharge or change in vision. GASTROINTESTINAL: As per HPI. Past Medical History Past Medical History: Blood Disorder, Cancer, Chest Pain / Angina, COPD, CVA/TIA, Diabetes Mellitus, GERD/Reflux, Hearing Disorder / Deafness, Hyperlipidemia, Hypertension, Liver Disease, Prostate Disorder, Sleep Apnea/CPAP/BIPAP Additional Past Medical History / Comment(s): DIFF HEARING R&L/HEART MURMUR/POOR CIRCULATION/ENLARGED HEART/BRADYCARDIA/PSORIASIS/EMPHYSEMA/FATTY LIVER. LOW PLATELETS. Liver Cancer 2017, psoriatic arthritis History of Any Multi-Drug Resistant Organisms: None Reported Past Surgical History: Cholecystectomy, Heart Catheterization, Hernia Repair Additional Past Surgical History / Comment(s): BRONCHOSCOPY/CATARACT REMOVAL L&R/EGD/COLONOSCOPY/RT KNEE ARTHROSCOPIC /BULLETS REMOVED FROM LT ARM AND CHEST 1970'S/CIRCUMCISION, LIVER BIOPSY Past Anesthesia/Blood Transfusion Reactions: No Reported Reaction Past Psychological History: Anxiety Smoking Status: Former smoker Past Alcohol Use History: None Reported Additional Past Alcohol Use History / Comment(s): QUIT DRINKING 30 YEARS AGO. Past Drug Use History: None Reported - Past Family History Father Family Medical History: Cancer Additional Family Medical History / Comment(s): PROSTATE CANCER Brother(s) Family Medical History: Cancer Additional Family Medical History / Comment(s): COLON CANCER. Son(s) Family Medical History: Liver Disease (Non EtOH cirrhosis, required transplant at 10 years old) Medications and Allergies Home Medications Medication Instructions Recorded Confirmed Type Furosemide [Lasix] 20 mg PO DAILY 01/21/14 07/09/19 History HYDROcodone/APAP 10-325MG [Gilliam 1 tab PO TID PRN 01/21/14 07/09/19 History 10-325] Potassium Chloride ER [K-Dur 10] 10 meq PO DAILY 01/21/14 07/09/19 History metFORMIN HCL [Glucophage] 850 mg PO HS 01/21/14 07/09/19 History Cyclobenzaprine [Flexeril] 10 mg PO HS PRN 07/05/16 07/09/19 History Gabapentin [Neurontin] 800 mg PO HS 07/05/16 07/09/19 History Tamsulosin [Flomax] 0.4 mg PO HS 07/05/16 07/09/19 History Cholecalciferol [Vitamin D3] 5,000 unit PO DAILY 09/30/16 07/09/19 History Multivit-Min/FA/Lycopen/Lutein 1 tab PO DAILY 09/30/16 07/09/19 History [Centrum Silver Tablet] inFLIXimab [Remicade] 600 mg IV Q180D 09/30/16 07/09/19 History Cabozantinib S-Malate [Cabometyx] 20 mg PO DIRECTED 05/14/19 07/09/19 History Carvedilol [Coreg] 6.25 mg PO BID 07/09/19 07/09/19 History Enalapril [Vasotec] 5 mg PO HS 07/09/19 07/09/19 History Pravastatin Sodium [Pravachol] 40 mg PO HS 07/09/19 07/09/19 History Allergies Allergy/AdvReac Type Severity Reaction Status Date / Time No Known Allergies Allergy Verified 07/09/19 14:18 Physical Exam Vitals: Vital Signs Temp Pulse Resp BP Pulse Ox 07/10/19 13:00 82 14 112/91 98 07/10/19 12:00 97.7 F 55 L 12 112/48 99 07/10/19 11:00 57 L 12 104/47 98 07/10/19 10:30 59 L 13 99/50 98 07/10/19 10:00 61 9 L 98 07/10/19 09:30 72 15 92/45 99 07/10/19 09:00 56 L 12 107/52 97 07/10/19 08:30 76 13 106/50 95 07/10/19 08:00 97.6 F 66 15 104/54 98 07/10/19 07:30 75 11 L 108/72 98 07/10/19 07:00 66 13 103/59 97 07/10/19 06:30 75 16 114/53 97 07/10/19 06:00 56 L 10 L 112/53 96 07/10/19 05:30 58 L 10 L 116/54 96 07/10/19 05:00 60 11 L 110/56 96 07/10/19 04:55 97.4 F L 61 13 110/56 96 07/10/19 04:54 97.4 F L 61 13 110/56 96 07/10/19 04:30 89 18 101/47 96 07/10/19 04:00 70 17 100/48 95 07/10/19 03:30 61 11 L 104/49 96 07/10/19 03:00 65 10 L 98/50 95 07/10/19 02:58 97.8 F 75 14 99/47 96 07/10/19 02:30 71 14 103/53 96 07/10/19 02:28 97.9 F 68 7 L 103/5 07/10/19 02:18 97.9 F 68 8 L 108/56 07/10/19 02:15 97.9 F 75 6 L 108/56 97 07/10/19 02:00 72 14 104/60 96 07/10/19 01:30 70 10 L 106/50 96 07/10/19 01:00 65 12 87/40 99 07/10/19 00:30 67 10 L 102/50 99 07/10/19 00:00 97.9 F 73 6 L 86/38 97 07/09/19 23:46 65 9 L 88/34 99 07/09/19 23:30 66 8 L 82/37 98 07/09/19 23:00 68 8 L 89/38 99 07/09/19 22:30 81 12 96/50 99 07/09/19 22:00 86 11 L 109/58 98 07/09/19 21:30 80 12 126/76 97 07/09/19 21:00 82 11 L 124/58 95 07/09/19 20:35 99 07/09/19 20:30 79 17 119/58 99 07/09/19 20:00 98.1 F 74 12 120/44 99 07/09/19 19:48 97.7 F 72 14 120/44 100 07/09/19 19:30 76 22 116/51 98 07/09/19 19:00 77 13 117/48 99 07/09/19 18:30 75 12 111/58 98 07/09/19 18:00 76 11 L 113/49 99 07/09/19 17:59 97.7 F 75 14 117/52 100 07/09/19 17:30 75 12 95/78 99 07/09/19 17:29 97.7 F 79 15 110/55 100 07/09/19 17:19 97.6 F 81 14 95/48 99 07/09/19 17:00 74 13 119/56 98 07/09/19 16:58 98 F 75 17 119/56 99 07/09/19 16:30 78 22 121/59 98 07/09/19 16:24 98 F 87 12 121/59 97 07/09/19 16:12 98 F 07/09/19 16:08 97.5 F L 83 18 129/60 100 07/09/19 15:37 97.9 F 81 18 127/64 100 07/09/19 15:07 97.3 F L 83 18 129/61 98 07/09/19 14:57 97 F L 18 125/64 99 Intake and Output 07/09/19 07/10/19 07/10/19 22:59 06:59 14:59 Intake Total 1260 1410 800 Output Total 0 450 900 Balance 1260 960 -100 Intake: IV 400 900 800 Sodium Chloride 0.9% 1, 400 900 800 000 ml @ 100 mls/hr IV . Q10H STA Rx#:[id number] Oral 240 Blood Product 620 310 Rc As-1 Unit 310 [id number] Rc As-1 Unit 310 [id number] Rc As-1 Unit 310 [id number] Other 0 200 Rc As-1 Unit 200 [id number] Rc As-1 Unit 0 [id number] Output: Urine 0 450 900 Other: Voiding Method Urinal Urinal Urinal # Voids 1 Weight 92.6 kg On physical examination, patient appears comfortable in no apparent distress. HEAD: Normocephalic, atraumatic. EYES: No scleral icterus. No conjunctival injection. MOUTH: No lesions, tongue midline. NECK: Trachea midline, no gross abnormalities. CHEST: Clear to auscultation with no wheezing or rhonchi appreciated. HEART: Regular rate and rhythm. ABDOMEN: Soft, obese. Bowel sounds are positive. No organomegaly. No guarding or rigidity. EXTREMITIES: No pedal edema. SKIN: No rashes, no jaundice. NEUROLOGIC: Alert and oriented x3, no asterixis noted. No focal deficits. Results CBC & Chem 7: 07/11/19 04:31 07/11/19 04:31 Labs: Abnormal Lab Results - Last 24 Hours (Table) 07/09/19 07/09/19 07/09/19 Range/Units 12:10 14:46 14:46 WBC (3.8-10.6) k/uL RBC 1.60 L (4.30-5.90) m/uL Hgb 5.3 L* (13.0-17.5) gm/dL Hct 15.8 L* (39.0-53.0) % RDW 19.6 H (11.5-15.5) % Plt Count 60 L (150-450) k/uL Neutrophils # (Manual) 1.23 L (1.3-7.7) k/uL Monocytes # (Manual) 1.32 H (0-1.0) k/uL Metamyelocytes # (Man) 0.13 H (0) k/uL Creatinine (0.66-1.25) mg/dL POC Glucose (mg/dL) (75-99) mg/dL Calcium (8.4-10.2) mg/dL Ferritin 346.6 H (22.0-322.0) ng/mL Total Bilirubin (0.2-1.3) mg/dL AST (17-59) U/L Alkaline Phosphatase (38-126) U/L Albumin (3.5-5.0) g/dL Tumor Marker AFP (0.0-7.9) ng/mL Crossmatch See Detail 07/09/19 07/09/19 07/10/19 Range/Units 16:24 20:29 01:03 WBC (3.8-10.6) k/uL RBC 1.92 L (4.30-5.90) m/uL Hgb 6.3 L* (13.0-17.5) gm/dL Hct 18.1 L* (39.0-53.0) % RDW 20.2 H (11.5-15.5) % Plt Count 44 L (150-450) k/uL Neutrophils # (Manual) (1.3-7.7) k/uL Monocytes # (Manual) (0-1.0) k/uL Metamyelocytes # (Man) (0) k/uL Creatinine (0.66-1.25) mg/dL POC Glucose (mg/dL) 106 H 142 H (75-99) mg/dL Calcium (8.4-10.2) mg/dL Ferritin (22.0-322.0) ng/mL Total Bilirubin (0.2-1.3) mg/dL AST (17-59) U/L Alkaline Phosphatase (38-126) U/L Albumin (3.5-5.0) g/dL Tumor Marker AFP (0.0-7.9) ng/mL Crossmatch 07/10/19 07/10/19 07/10/19 Range/Units 06:02 06:02 06:02 WBC 3.7 L (3.8-10.6) k/uL RBC 2.26 L (4.30-5.90) m/uL Hgb 7.3 L (13.0-17.5) gm/dL Hct 21.0 L (39.0-53.0) % RDW 19.5 H (11.5-15.5) % Plt Count 55 L (150-450) k/uL Neutrophils # (Manual) 0.90 L (1.3-7.7) k/uL Monocytes # (Manual) 1.59 H (0-1.0) k/uL Metamyelocytes # (Man) (0) k/uL Creatinine 0.64 L (0.66-1.25) mg/dL POC Glucose (mg/dL) (75-99) mg/dL Calcium 7.9 L (8.4-10.2) mg/dL Ferritin (22.0-322.0) ng/mL Total Bilirubin 2.0 H (0.2-1.3) mg/dL AST 76 H (17-59) U/L Alkaline Phosphatase 137 H (38-126) U/L Albumin 2.8 L (3.5-5.0) g/dL Tumor Marker AFP 254.4 H (0.0-7.9) ng/mL Crossmatch 07/10/19 07/10/19 Range/Units 06:53 12:02 WBC (3.8-10.6) k/uL RBC (4.30-5.90) m/uL Hgb (13.0-17.5) gm/dL Hct (39.0-53.0) % RDW (11.5-15.5) % Plt Count (150-450) k/uL Neutrophils # (Manual) (1.3-7.7) k/uL Monocytes # (Manual) (0-1.0) k/uL Metamyelocytes # (Man) (0) k/uL Creatinine (0.66-1.25) mg/dL POC Glucose (mg/dL) 100 H 107 H (75-99) mg/dL Calcium (8.4-10.2) mg/dL Ferritin (22.0-322.0) ng/mL Total Bilirubin (0.2-1.3) mg/dL AST (17-59) U/L Alkaline Phosphatase (38-126) U/L Albumin (3.5-5.0) g/dL Tumor Marker AFP (0.0-7.9) ng/mL Crossmatch Chest x-ray: report reviewed (Chest x-ray with no acute cardiopulmonary findings and patchy midlung calcifications correlated prior PET scan) Assessment and Plan (1) Melena Narrative/Plan: Pleasant 79-year-old male with multiple medical comorbidities including a reported history from the patient's of Santos cirrhosis and subsequent development of hepatocellular carcinoma for which she has received treatment at [facility]. He presents with complaints of melanotic stool and was found to have a hemoglobin of 5.3 subsequently transfused and is improved to 7.3. Stool testing was positive for blood with patient reporting one further small smear of dark tarry stool today. Unknown etiology consideration for peptic ulcer disease, severe erosive gastritis/esophagitis, AVM, with variceal bleeding possibility clinically in the setting of motility and absence of findings of hematemesis, or other etiology. 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 Denies any symptoms of decompensated disease including encephalopathy, fluid overload or prior bleeding. Current Visit: Yes Status: Chronic Priority: Medium Code(s): C22.9 - MALIG NEOPLASM OF LIVER, NOT SPECIFIED PRIMARY OR SEC SNOMED Code(s): 12612357 Plan: Supportive care Clear liquid diet Nothing by mouth after midnight Plan for upper endoscopy tomorrow for further evaluation Continue Protonix therapy Continue to monitor hemoglobin and hematocrit and transfuse as needed Continue ICU management Thank you for allowing us the patient we will continue to follow
--- NOTE | 2019-07-11 08:11 | P.PCN ---
Date of Procedure: 07/11/19 Description of Procedure: BRIEF HISTORY: Pleasant 79-year-old male with multiple medical comorbidities including a reported history from the patient's of Santos cirrhosis and subsequent development of hepatocellular carcinoma for which she has received treatment at [facility]. He presents with complaints of melanotic stool and was found to have a hemoglobin of 5.3 subsequently transfused and is improved to 7.3. Stool testing was positive for blood with patient reporting one further small smear of dark tarry stool today. Unknown etiology consideration for peptic ulcer disease, severe erosive gastritis/esophagitis, AVM, with variceal bleeding possibility clinically in the setting of motility and absence of findings of hematemesis, or other etiology. PROCEDURE PERFORMED: Esophagogastroduodenoscopy with biopsy. PREOPERATIVE DIAGNOSIS: Melena, anemia of acute blood loss, last EGD in 2017 significant for gastritis and esophagitis. ESTIMATED BLOOD LOSS: Minimal. IV sedation per anesthesia. PROCEDURE: After informed consent was obtained, the patient was brought into the endoscopy unit. IV sedation was administered by Anesthesia under continuous monitoring. Initially the Olympus GIF-190 video endoscope was inserted into the mouth. Esophagus intubated without any difficulty. It was gradually advanced into the stomach and duodenum and carefully examined. The bulb and the second part of the duodenum appeared normal, with biopsies taken. The scope at this time was withdrawn to the stomach, adequately insufflated with air, and upon careful examination, mucosa of the antrum, body, cardia and the fundus appeared normal, except for some mild scattered erythema in the antrum and body suggestive of mild gastritis with biopsies taken. The scope was then withdrawn into the esophagus. The GE junction was located at 42 cm from the incisors. The esophagus appeared normal, with no evidence of varices. There were no erosions or ulcerations seen and the patient tolerated the procedure well. IMPRESSION: 1. No active bleeding, old blood or source of GI bleed found on upper endoscopy. 2. Mild gastritis antrum and body, biopsies taken. 3. Duodenal biopsies. RECOMMENDATIONS: The findings of this examination were discussed with the patient in the ICU team. Okay to resume liquid diet. Continue to monitor hemoglobin and hematocrit and transfuse as needed. Continue Protonix daily. Continue to monitor for signs or symptoms of GI bleeding. Patient's scheduled to come to the hospital later in the day, we'll discuss further endoscopic evaluation with a family and the patient at that time.
[2019-07-11] MEDS ORDERED: HYDROmorphone 0.5 MG/0.5 ML SYRINGE IVP PRN (08:24)
[2019-07-11] MEDS: LACTATED RINGERS 1,000 ML IV SCH (08:31)
[2019-07-11] MEDS: CHOLECALCIFEROL 1,000 UNIT TAB PO SCH (08:31)
[2019-07-11] MEDS: POTASSIUM CHLORIDE ER 20 MEQ TAB.ER PO SCH ×2 (08:31→13:45)
[2019-07-11] MEDS: CARVEDILOL 6.25 MG TAB PO SCH ×2 (08:31→17:09)
[2019-07-11] MEDS: FUROSEMIDE 20 MG TAB PO SCH (08:33)
[2019-07-11] MEDS: PANTOPRAZOLE 40 MG/10 ML VIAL IVP SCH (08:34)
[2019-07-11] MEDS: INSULIN ASPART (NovoLOG) 100 UNIT/ML VIAL SQ SCH ×4 (08:38→20:38)
[2019-07-11] MEDS: POTASSIUM CHLORIDE ER 10 MEQ TAB.ER.PRT PO SCH (10:02)
--- NOTE | 2019-07-11 11:28 | P.PN ---
<Minormarco ajudyIrais P - Last Filed: 07/11/19 11:14> Subjective Progress Note Date: 07/11/19 This is a 79-year-old male patient of Dr. Calderon. Patient presented with complaints of increased weakness and potential GI bleed. Patient reports that he had a dark tarry stool on Monday. At that time patient refused to go to ER per . Patient became increasingly weak over the past few days. Patient complains of generalized right upper quadrant and flank pain which is chronic per patient related to his known liver cancer. Patient has metastatic liver cancer in which he follows with Dr. Baekr at [facility]. Patient reports he just has been feeling very weak and tired. Hemoglobin upon arrival he 5.7 patient denies any nausea or vomiting but does report decreased appetite. Additional medical history includes liver cancer in which she is currently on chemotherapy therapy. Per patient's chemotherapy has been on hold for dental procedure. Chest x-ray completed showing no acute cardiopulmonary process. Patchy midlung densities appear to be represent pleural calcifications when correlated with the CT of 10/15/2016. Patient reports last colonoscopy was approximately [address] Phelps. Additional medical history includes chronic thrombocytopenia, CVA, diabetes mellitus, GERD, hearing disorder, hyperlipidemia, hypertension, prostate disorder, cholecystectomy and anxiety. Hgb5.7, platelets 90. Stool for occult blood positive. At this time to unit PRBCs have been ordered. Patient will be admitted to the intensive care unit. GI, oncology and critical care service is consulted. Vitals are stable at this time. At this time patient denies chest pain or shortness of breath. Patient denies nausea vomiting or diarrhea. Patient denies any urinary burning or frequency On 07/10/2019 Hemoglobin 7.3 this AM. Patient did receive 3 units of PRBCs. Patient is alert and oriented 3. Patient still complaining of some chronic upper right abdominal pain. Vitals have remained stable. GI oncology and critical care service is following. At this time patient denies chest pain or shortness of breath. Patient denies nausea vomiting or diarrhea. Patient denies any urinary burning or frequency. On 07/11/2019 patient is resting comfortably in bed, denies any discomfort at this time. Hemoglobin is 7.8. Patient underwent upper endoscopy at bedside this morning. Per GI services no active bleeding found. Biopsies obtained. Patient will be maintained on Protonix. Vital signs remain stable. Patient has not had a bowel movement since Monday. Patient denies any shortness of breath, chest pain. Patient denies any nausea vomiting or diarrhea. Patient denies any urinary burning or frequency. Objective - Vital Signs Vital signs: Vital Signs Temp 98.1 F 07/11/19 08:45 Pulse 76 07/11/19 10:00 Resp 12 07/11/19 10:00 BP 106/44 07/11/19 10:00 Pulse Ox 95 07/11/19 10:00 Intake & Output 07/10/19 07/11/19 07/11/19 18:59 06:59 18:59 Intake Total 1300 1100 510 Output Total 1250 1280 0 Balance 50 -180 510 Weight 91.2 kg Intake: IV 1300 1100 300 Sodium Chloride 0.9% 1, 1300 1100 100 000 ml @ 100 mls/hr IV . Q10H STA Rx#:[id number] Intake, IV Titration 60 Amount Lactated Ringers 1,000 ml 60 @ 20 mls/hr IV .Q24H DARIEN Rx#:[id number] Oral 150 Output: Urine 1250 1280 0 Other: Voiding Method Urinal Urinal - Exam Head normocephalic, pallor Neck supple Lungs clear to auscultation bilaterally no wheezing or crackles Heart regular rate and rhythm S1-S2, no rub or gallop Abdomen is soft nontender nondistended positive bowel sounds no hepatospl enomegaly. Right upper quadrant tenderness to palpation Extremities no edema Neuro alert and orientated to 3 - Labs CBC & Chem 7: 07/11/19 04:31 07/11/19 04:31 Labs: Abnormal Lab Results - Last 24 Hours (Table) 07/10/19 07/10/19 07/10/19 Range/Units 06:02 12:02 16:54 WBC (3.8-10.6) k/uL RBC (4.30-5.90) m/uL Hgb (13.0-17.5) gm/dL Hct (39.0-53.0) % RDW (11.5-15.5) % Plt Count (150-450) k/uL Neutrophils # (Manual) (1.3-7.7) k/uL Lymphocytes # (Manual) (1.0-4.8) k/uL Monocytes # (Manual) (0-1.0) k/uL Creatinine (0.66-1.25) mg/dL POC Glucose (mg/dL) 107 H 119 H (75-99) mg/dL Calcium (8.4-10.2) mg/dL Total Bilirubin (0.2-1.3) mg/dL AST (17-59) U/L Alkaline Phosphatase (38-126) U/L Total Protein (6.3-8.2) g/dL Albumin (3.5-5.0) g/dL Tumor Marker AFP 254.4 H (0.0-7.9) ng/mL 07/10/19 07/10/19 07/10/19 Range/Units 17:59 21:22 23:47 WBC (3.8-10.6) k/uL RBC 2.55 L 2.31 L (4.30-5.90) m/uL Hgb 8.4 L 7.4 L (13.0-17.5) gm/dL Hct 24.1 L 21.7 L (39.0-53.0) % RDW 19.4 H 19.9 H (11.5-15.5) % Plt Count 64 L 62 L (150-450) k/uL Neutrophils # (Manual) (1.3-7.7) k/uL Lymphocytes # (Manual) (1.0-4.8) k/uL Monocytes # (Manual) (0-1.0) k/uL Creatinine (0.66-1.25) mg/dL POC Glucose (mg/dL) 100 H (75-99) mg/dL Calcium (8.4-10.2) mg/dL Total Bilirubin (0.2-1.3) mg/dL AST (17-59) U/L Alkaline Phosphatase (38-126) U/L Total Protein (6.3-8.2) g/dL Albumin (3.5-5.0) g/dL Tumor Marker AFP (0.0-7.9) ng/mL 07/11/19 07/11/19 Range/Units 04:31 04:31 WBC 3.7 L (3.8-10.6) k/uL RBC 2.40 L (4.30-5.90) m/uL Hgb 7.8 L (13.0-17.5) gm/dL Hct 22.9 L (39.0-53.0) % RDW 19.7 H (11.5-15.5) % Plt Count 64 L (150-450) k/uL Neutrophils # (Manual) 0.81 L (1.3-7.7) k/uL Lymphocytes # (Manual) 0.93 L (1.0-4.8) k/uL Monocytes # (Manual) 1.89 H (0-1.0) k/uL Creatinine 0.59 L (0.66-1.25) mg/dL POC Glucose (mg/dL) (75-99) mg/dL Calcium 7.9 L (8.4-10.2) mg/dL Total Bilirubin 1.8 H (0.2-1.3) mg/dL AST 66 H (17-59) U/L Alkaline Phosphatase 150 H (38-126) U/L Total Protein 6.2 L (6.3-8.2) g/dL Albumin 2.8 L (3.5-5.0) g/dL Tumor Marker AFP (0.0-7.9) ng/mL Assessment and Plan Assessment: 1. Anemia secondary to GI bleed. Stool positive for occult blood. Patient reports last dark tarry stool on Monday07/06/2019. Hemoglobin 5.7. 2 units of PRBCs were given. GI services following. patient maintained on clear liquid diet. Received total 3 units of PRBCs since admission. Hemoglobin improving 7.8. Patient underwent EGD this morning at bedside. Per GI no no active bleed was found. GI appreciated mild gastritis, biopsies taken. Along with duodenal biopsies. Will maintain on Protonix daily. No plan for colonoscopy at this time. 2. History of liver cancer with metastatic disease. Patient reports he follows with Dr. Cote out of [facility]. Patient's reports that current chemotherapy is currently on hold due to dental procedure planned. Oncology service is consulted 3. thrombocytopenia secondary to cancer chemotherapy. platelets 64 4. Diabetes mellitus type 2. Metformin on hold sliding scale insulin ordered 5. Essential hypertension. Home meds resumed with parameters 6. History of CVA 7. History of hearing disorder 8. Hyperlipidemia 9. Prostate disorder 10. History of cholecystectomy 11. History of anxiety DVT prophylaxis SCDs. GI prophylaxis Protonix Oncology, GI and critical care service is consulted Continue to monitor hemoglobin closely PT OT consulted I performed an examination of the patient and discussed their management with the Nurse Practitioner. I have reviewed the Nurse Practitioner's notes and agree with the documented findings and plan of care <Sammi Pickering - Last Filed: 07/18/19 10:28> Objective - Vital Signs Vital signs: Vital Signs Temp 97.6 F 07/12/19 14:53 Pulse 70 07/12/19 15:53 Resp 18 07/12/19 15:53 BP 123/60 07/12/19 15:53 Pulse Ox 100 07/12/19 15:33 - Labs CBC & Chem 7: 07/12/19 09:28 07/12/19 06:38 Assessment and Plan Assessment: continue to monitor hgb closely
[2019-07-11 12:01] LABS: Glucose,Whole Blood 125 mg/dL (75-99)
--- NOTE | 2019-07-11 14:13 | P.PN ---
Subjective Progress Note Date: 07/11/19 On 07/11/2019 the patient is doing extremely well. Endoscopy was done and there are no signs of acute bleeding. There is some mild gastritis. The patient was found to have no active bleeding. Biopsies were taken there is also still pending for now. Meanwhile the patient is on liquid diet. The patient has a stable hemoglobin. The patient on daily Protonix. Awake and alert. No significant complaints on today's evaluation. Hemoglobin today is at 7.8. Platelet count is also stable at 64K. Renal function stable to creatinine of 0.5. Objective - Vital Signs Vital signs: Vital Signs Temp 98.1 F 07/11/19 08:45 Pulse 71 07/11/19 12:00 Resp 17 07/11/19 12:00 BP 114/54 07/11/19 12:00 Pulse Ox 95 07/11/19 10:00 Intake & Output 07/10/19 07/11/19 07/11/19 18:59 06:59 18:59 Intake Total 1300 1100 1010 Output Total 1250 1280 425 Balance 50 -180 585 Weight 91.2 kg Intake: IV 1300 1100 300 Sodium Chloride 0.9% 1, 1300 1100 100 000 ml @ 100 mls/hr IV . Q10H STA Rx#:[id number] Intake, IV Titration 60 Amount Lactated Ringers 1,000 ml 60 @ 20 mls/hr IV .Q24H DARIEN Rx#:[id number] Oral 650 Output: Urine 1250 1280 425 Other: Voiding Method Urinal Urinal - Exam GENERAL EXAM: Alert, pleasant 79-year-old gentleman, comfortable in no apparent distress. HEAD: Normocephalic. EYES: Normal reaction of pupils, equal size. NOSE: Clear with pink turbinates. THROAT: No erythema or exudates. NECK: No masses, no JVD. CHEST: No chest wall deformity. Left MediPort in place. LUNGS: Equal air entry with no crackles, wheeze, rhonchi or dullness. CVS: S1 and S2 normal with no audible murmur, regular rhythm. ABDOMEN: No hepatosplenomegaly, normal bowel sounds, no guarding or rigidity. SPINE: No scoliosis or deformity SKIN: No rashes CENTRAL NERVOUS SYSTEM: No focal deficits, tone is normal in all 4 extremities. EXTREMITIES: There is no peripheral edema. No clubbing, no cyanosis. Peripheral pulses are intact. - Labs CBC & Chem 7: 07/11/19 04:31 07/11/19 04:31 Labs: Abnormal Lab Results - Last 24 Hours (Table) 07/10/19 07/10/19 07/10/19 Range/Units 16:54 17:59 21:22 WBC (3.8-10.6) k/uL RBC 2.55 L (4.30-5.90) m/uL Hgb 8.4 L (13.0-17.5) gm/dL Hct 24.1 L (39.0-53.0) % RDW 19.4 H (11.5-15.5) % Plt Count 64 L (150-450) k/uL Neutrophils # (Manual) (1.3-7.7) k/uL Lymphocytes # (Manual) (1.0-4.8) k/uL Monocytes # (Manual) (0-1.0) k/uL Creatinine (0.66-1.25) mg/dL POC Glucose (mg/dL) 119 H 100 H (75-99) mg/dL Calcium (8.4-10.2) mg/dL Total Bilirubin (0.2-1.3) mg/dL AST (17-59) U/L Alkaline Phosphatase (38-126) U/L Total Protein (6.3-8.2) g/dL Albumin (3.5-5.0) g/dL 07/10/19 07/11/19 07/11/19 Range/Units 23:47 04:31 04:31 WBC 3.7 L (3.8-10.6) k/uL RBC 2.31 L 2.40 L (4.30-5.90) m/uL Hgb 7.4 L 7.8 L (13.0-17.5) gm/dL Hct 21.7 L 22.9 L (39.0-53.0) % RDW 19.9 H 19.7 H (11.5-15.5) % Plt Count 62 L 64 L (150-450) k/uL Neutrophils # (Manual) 0.81 L (1.3-7.7) k/uL Lymphocytes # (Manual) 0.93 L (1.0-4.8) k/uL Monocytes # (Manual) 1.89 H (0-1.0) k/uL Creatinine 0.59 L (0.66-1.25) mg/dL POC Glucose (mg/dL) (75-99) mg/dL Calcium 7.9 L (8.4-10.2) mg/dL Total Bilirubin 1.8 H (0.2-1.3) mg/dL AST 66 H (17-59) U/L Alkaline Phosphatase 150 H (38-126) U/L Total Protein 6.2 L (6.3-8.2) g/dL Albumin 2.8 L (3.5-5.0) g/dL 07/11/19 Range/Units 12:00 WBC (3.8-10.6) k/uL RBC (4.30-5.90) m/uL Hgb (13.0-17.5) gm/dL Hct (39.0-53.0) % RDW (11.5-15.5) % Plt Count (150-450) k/uL Neutrophils # (Manual) (1.3-7.7) k/uL Lymphocytes # (Manual) (1.0-4.8) k/uL Monocytes # (Manual) (0-1.0) k/uL Creatinine (0.66-1.25) mg/dL POC Glucose (mg/dL) 125 H (75-99) mg/dL Calcium (8.4-10.2) mg/dL Total Bilirubin (0.2-1.3) mg/dL AST (17-59) U/L Alkaline Phosphatase (38-126) U/L Total Protein (6.3-8.2) g/dL Albumin (3.5-5.0) g/dL Assessment and Plan Plan: 1 acute gastrointestinal bleeding with black tarry stools and hemoglobin of 5.3, posttransfusion hemoglobin. The patient underwent endoscopy. Hemoglobin is stable at 7.8. There is some mild gastritis. No other acute are not is noted. Biopsies were taken. 2 anemia secondary to above . Hemoglobin is stable for now. This is an acute on top of chronic anemia 3 hepatocellular carcinoma diagnosed in 2017 currently maintained on Cabometyx/cabozantinib 4 thrombocytopenia, platelet count 64,000 5 psoriatic arthritis, on Remicade 6 diabetes mellitus 7 hypertension, history of 8 hyperlipidemia 9 remote history of tobacco dependence for 20 years however quit 30 years ago 10 obstructive sleep apnea intolerant to CPAP Plan Hemodynamically stable. Advance diet as tolerated. Hemoglobin is stable. EGD results were noted. The patient can be transferred out of the intensive care unit.
[2019-07-11] MEDS ORDERED: BISACODYL 5 MG TABLET.DR PO STA (16:52)
[2019-07-11] MEDS ORDERED: PEG 3350-NA SULF,BICARB,CL/KCL 4,000 ML BOTTLE PO ONE (16:52)
[2019-07-11 17:08] LABS: Glucose,Whole Blood 87 mg/dL (75-99)
[2019-07-11 20:23] LABS: Glucose,Whole Blood 122 mg/dL (75-99)
[2019-07-11] MEDS: TAMSULOSIN 0.4 MG CAP.ER.24H PO SCH (20:47)
[2019-07-11] MEDS: GABAPENTIN 400 MG CAP PO SCH (20:48)
[2019-07-11] MEDS: LISINOPRIL 10 MG TAB PO SCH (20:48)
[2019-07-11] MEDS: PRAVASTATIN SODIUM 40 MG TAB PO SCH (20:48)
[2019-07-11] MEDS: HYDROcodone/APAP 10-325MG 1 EACH TAB PO PRN (21:20)
[2019-07-12 07:33] LABS: ALT 52 U/L (21-72); AST 58 U/L (17-59); African American GFR (CKD) >90 (>60 ml/min/1.73 sqM); Albumin 2.8 g/dL (3.5-5.0); Alkaline Phosphatase 155 U/L (38-126); Anion Gap 7 mmol/L; Blood Urea Nitrogen 8 mg/dL (9-20); Calcium 8.1 mg/dL (8.4-10.2); Carbon Dioxide 27 mmol/L (22-30); Chloride 106 mmol/L (98-107); Glucose 72 mg/dL (74-99); Potassium 3.4 mmol/L (3.5-5.1); Sodium 140 mmol/L (137-145); Total Bilirubin 1.3 mg/dL (0.2-1.3); Total Protein 6.2 g/dL (6.3-8.2)
[2019-07-12 07:41] LABS: Methylmalonic Acid 0.22 umol/L (<0.40)
[2019-07-12 07:42] LABS: Anisocytosis Slight; HCT 22.2 % (39.0-53.0); HGB 7.6 gm/dL (13.0-17.5); MCH 32.5 pg (25.0-35.0); MCHC 34.4 g/dL (31.0-37.0); MCV 94.6 fL (80.0-100.0); Macrocytosis Slight; Mean Platelet Volume 9.3; Poikilocytosis Slight; RBC 2.35 m/uL (4.30-5.90); RDW 19.4 % (11.5-15.5)
[2019-07-12 07:43] LABS: Platelet Count 90 k/uL (150-450)
[2019-07-12] MEDS ORDERED: Potassium Replacement Protocol 1 EACH MISC MISCELLANE PRN (07:50)
[2019-07-12 09:06] LABS: Band Neutrophils % 2 %; Eosinophils # (M) 0.05 k/uL (0-0.7); Lymphocytes # (M) 1.15 k/uL (1.0-4.8); Neutrophils % (M) 28 %; Nucleated Red Blood Cells 0 /100 WBC (0-0); Total Cells Counted 100
[2019-07-12] MEDS: POTASSIUM CHLORIDE 10 MEQ in WATER FOR INJECTION 1 100ML.BAG IVPB SCH ×4 (09:26→13:16)
[2019-07-12 10:04] LABS: Mean Platelet Volume 8.7; Platelet Count 100 k/uL (150-450)
[2019-07-12] MEDS: PANTOPRAZOLE 40 MG/10 ML VIAL IVP SCH (10:31)
[2019-07-12] MEDS: CHOLECALCIFEROL 1,000 UNIT TAB PO SCH (10:44)
[2019-07-12] MEDS: POTASSIUM CHLORIDE ER 10 MEQ TAB.ER.PRT PO SCH (10:44)
[2019-07-12] MEDS: INSULIN ASPART (NovoLOG) 100 UNIT/ML VIAL SQ SCH ×3 (10:44→11:44)
[2019-07-12] MEDS: FUROSEMIDE 20 MG TAB PO SCH (10:44)
[2019-07-12] MEDS: CARVEDILOL 6.25 MG TAB PO SCH (10:45)
--- NOTE | 2019-07-12 10:49 | P.PN ---
<Gómez Rogersn P - Last Filed: 07/12/19 10:39> Subjective Progress Note Date: 07/12/19 This is a 79-year-old male patient of Dr. Calderon. Patient presented with complaints of increased weakness and potential GI bleed. Patient reports that he had a dark tarry stool on Monday. At that time patient refused to go to ER per . Patient became increasingly weak over the past few days. Patient complains of generalized right upper quadrant and flank pain which is chronic per patient related to his known liver cancer. Patient has metastatic liver cancer in which he follows with Dr. Baker at [facility]. Patient reports he just has been feeling very weak and tired. Hemoglobin upon arrival he 5.7 patient denies any nausea or vomiting but does report decreased appetite. Additional medical history includes liver cancer in which she is currently on chemotherapy therapy. Per patient's chemotherapy has been on hold for dental procedure. Chest x-ray completed showing no acute cardiopulmonary process. Patchy midlung densities appear to be represent pleural calcifications when correlated with the CT of 10/15/2016. Patient reports last colonoscopy was approximately [address] Phelps. Additional medical history includes chronic thrombocytopenia, CVA, diabetes mellitus, GERD, hearing disorder, hyperlipidemia, hypertension, prostate disorder, cholecystectomy and anxiety. Hgb5.7, platelets 90. Stool for occult blood positive. At this time to unit PRBCs have been ordered. Patient will be admitted to the intensive care unit. GI, oncology and critical care service is consulted. Vitals are stable at this time. At this time patient denies chest pain or shortness of breath. Patient denies nausea vomiting or diarrhea. Patient denies any urinary burning or frequency On 07/10/2019 Hemoglobin 7.3 this AM. Patient did receive 3 units of PRBCs. Patient is alert and oriented 3. Patient still complaining of some chronic upper right abdominal pain. Vitals have remained stable. GI oncology and critical care service is following. At this time patient denies chest pain or shortness of breath. Patient denies nausea vomiting or diarrhea. Patient denies any urinary burning or frequency. On 07/11/2019 patient is resting comfortably in bed, denies any discomfort at this time. Hemoglobin is 7.8. Patient underwent upper endoscopy at bedside this morning. Per GI services no active bleeding found. Biopsies obtained. Patient will be maintained on Protonix. Vital signs remain stable. Patient has not had a bowel movement since Monday. Patient denies any shortness of breath, chest pain. Patient denies any nausea vomiting or diarrhea. Patient denies any urinary burning or frequency. On 07/12/2019 patient is resting comfortably in bed. Hemoglobin 7.6. EDG was negative for active bleed. Plan for colonoscopy today. Patient underwent GI prep overnight. Potassium 3.4 today likely related to GI prep. Will be replaced per nursing protocol. He denies any shortness breath, chest pain. Patient denies any nausea vomiting. Patient has any urinary burning or frequency. Objective - Vital Signs Vital signs: Vital Signs Temp 98.2 F 07/12/19 07:00 Pulse 76 07/12/19 08:00 Resp 16 07/12/19 08:00 BP 101/49 07/12/19 07:00 Pulse Ox 97 07/12/19 07:00 Intake & Output 07/11/19 07/12/19 07/12/19 18:59 06:59 18:59 Intake Total 1010 200 Output Total 425 Balance 585 200 Intake: IV 300 Sodium Chloride 0.9% 1, 100 000 ml @ 100 mls/hr IV . Q10H STA Rx#:[id number] Intake, IV Titration 60 0 Amount Lactated Ringers 1,000 ml 60 0 @ 20 mls/hr IV .Q24H DARIEN Rx#:[id number] Oral 650 200 Output: Urine 425 Other: Voiding Method Urinal Toilet Toilet # Voids 2 - Exam Head normocephalic, pallor Neck supple Lungs clear to auscultation bilaterally no wheezing or crackles Heart regular rate and rhythm S1-S2, no rub or gallop Abdomen is soft nontender nondistended positive bowel sounds no hepatosplenomegaly. Right upper quadrant tenderness to palpation Extremities no edema Neuro alert and orientated to 3 - Labs CBC & Chem 7: 07/12/19 09:28 07/12/19 06:38 Labs: Abnormal Lab Results - Last 24 Hours (Table) 07/10/19 07/11/19 07/11/19 Range/Units 06:02 12:00 20:22 RBC (4.30-5.90) m/uL Hgb (13.0-17.5) gm/dL Hct (39.0-53.0) % RDW (11.5-15.5) % Plt Count (150-450) k/uL Monocytes # (Manual) (0-1.0) k/uL Potassium (3.5-5.1) mmol/L BUN (9-20) mg/dL Creatinine (0.66-1.25) mg/dL Glucose (74-99) mg/dL POC Glucose (mg/dL) 125 H 122 H (75-99) mg/dL Calcium (8.4-10.2) mg/dL Alkaline Phosphatase (38-126) U/L Total Protein (6.3-8.2) g/dL Albumin (3.5-5.0) g/dL RBC Folate 1,507 H (280 - 791) ng/mL 07/12/19 07/12/19 07/12/19 Range/Units 06:38 06:38 09:28 RBC 2.35 L (4.30-5.90) m/uL Hgb 7.6 L (13.0-17.5) gm/dL Hct 22.2 L (39.0-53.0) % RDW 19.4 H (11.5-15.5) % Plt Count 90 L 100 L (150-450) k/uL Monocytes # (Manual) 2.30 H (0-1.0) k/uL Potassium 3.4 L (3.5-5.1) mmol/L BUN 8 L (9-20) mg/dL Creatinine 0.63 L (0.66-1.25) mg/dL Glucose 72 L (74-99) mg/dL POC Glucose (mg/dL) (75-99) mg/dL Calcium 8.1 L (8.4-10.2) mg/dL Alkaline Phosphatase 155 H (38-126) U/L Total Protein 6.2 L (6.3-8.2) g/dL Albumin 2.8 L (3.5-5.0) g/dL RBC Folate (280 - 791) ng/mL Assessment and Plan Assessment: 1. Anemia secondary to GI bleed. Stool positive for occult blood. Patient reports last dark tarry stool on Monday07/06/2019. Hemoglobin 5.7. 2 units of PRBCs were given. GI services following. patient maintained on clear liquid diet. Received total 3 units of PRBCs since admission. Hemoglobin stable 7.6. Patient underwent EGD this morning at bedside. Per GI no no active bleed was found. GI appreciated mild gastritis, biopsies taken. Along with duodenal biopsies. Will maintain on Protonix daily. Plan for colonoscopy this afternoon, will follow-up results. 2. History of liver cancer with metastatic disease. Patient reports he follows with Dr. Cote out of [facility]. Patient's reports that current chemotherapy is currently on hold due to dental procedure planned. Oncology service following. 3. thrombocytopenia secondary to cancer chemotherapy. platelets 100 4. Diabetes mellitus type 2. Metformin on hold sliding scale insulin ordered 5. Essential hypertension. Home meds resumed with parameters 6. History of CVA 7. History of hearing disorder 8. Hyperlipidemia 9. Prostate disorder 10. History of cholecystectomy 11. History of anxiety 12. Hypokalemia. Potassium is 3.4 likely due to GI prep for colonoscopy. Replacement per nursing protocol 40Meq. Continue to monitor. DVT prophylaxis SCDs. GI prophylaxis Protonix Oncology, GI and critical care service is consulted Continue to monitor hemoglobin closely PT OT consulted I performed an examination of the patient and discussed their management with the Nurse Practitioner. I have reviewed the Nurse Practitioner's notes and agree with the documented findings and plan of care <Sammi Pickering - Last Filed: 07/18/19 10:15> Objective - Vital Signs Vital signs: Vital Signs Temp 97.6 F 07/12/19 14:53 Pulse 70 07/12/19 15:53 Resp 18 07/12/19 15:53 BP 123/60 07/12/19 15:53 Pulse Ox 100 07/12/19 15:33 - Labs CBC & Chem 7: 07/12/19 09:28 07/12/19 06:38 Assessment and Plan Assessment: Patient's strength has improved
[2019-07-12] MEDS: LACTATED RINGERS 1,000 ML IV SCH (11:13)
[2019-07-12 11:44] LABS: Glucose,Whole Blood 97 mg/dL (75-99)
[2019-07-12] MEDS ORDERED: MORPHINE SULFATE 2 MG/ML SYRINGE IVP STA (11:53)
[2019-07-12] MEDS ORDERED: PROPOFOL 10 MG/ML 20 ML VIAL IV ONE (14:02)
[2019-07-12] MEDS ORDERED: PHENYLEPHRINE-0.9% NACL SYG 1 MG/10 ML SYRINGE ONE (14:02)
[2019-07-12] MEDS ORDERED: LIDOCAINE 1% INJ 10MG/ML (20 ML MDV) ONE (14:02)
[2019-07-12] MEDS ORDERED: SODIUM CHLORIDE 0.9% 500 ML 500 ML IV ONE ×2 (14:09)
--- NOTE | 2019-07-12 14:32 | P.PN ---
Subjective Progress Note Date: 07/12/19 Principal diagnosis: Acute GI bleeding, black tarry stools, acute blood loss anemia On 2018 patient seen in follow-up in medical surgical floor. He reports no further bleeding since last Monday, he had a EGD the day before yesterday, which showed gastritis but no active bleeding, biopsies were taken and they are still pending at this time, today's hemoglobin is 7.6, hemodynamic patient remains stable, he is been prepped overnight for colonoscopy this afternoon. His been nothing by mouth after midnight, denies any chest pain, denies any shortness of breath. Today's labs have been reviewed, showing white blood cell count of 5.0, hemoglobin as mentioned above at 7.6, platelet count is 98, sodium is 140, potassium is 3.4, B1 is 8 and creatinine 0.63. Objective - Vital Signs Vital signs: Vital Signs Temp 98.2 F 07/12/19 11:44 Pulse 84 07/12/19 11:44 Resp 16 07/12/19 11:44 BP 113/51 07/12/19 11:44 Pulse Ox 97 07/12/19 11:44 Intake & Output 07/11/19 07/12/19 07/12/19 18:59 06:59 18:59 Intake Total 1010 200 Output Total 425 Balance 585 200 Intake: IV 300 Sodium Chloride 0.9% 1, 100 000 ml @ 100 mls/hr IV . Q10H STA Rx#:[id number] Intake, IV Titration 60 0 Amount Lactated Ringers 1,000 ml 60 0 @ 20 mls/hr IV .Q24H DARIEN Rx#:[id number] Oral 650 200 Output: Urine 425 Other: Voiding Method Urinal Toilet Toilet # Voids 2 - Exam GENERAL EXAM: Alert, pleasant, 79-year-old white male, on room air, with pulse ox of 97% comfortable in no apparent distress. HEAD: Normocephalic/atraumatic. EYES: Normal reaction of pupils, equal size. Conjunctiva pink, sclera white. NOSE: Clear with pink turbinates. THROAT: No erythema or exudates. NECK: No masses, no JVD, no thyroid enlargement, no adenopathy. CHEST: No chest wall deformity. Symmetrical expansion. LUNGS: Equal air entry with no crackles, wheeze, rhonchi or dullness. CVS: Regular rate and rhythm, normal S1 and S2, no gallops, no murmurs, no rubs ABDOMEN: Soft, nontender. No hepatosplenomegaly, normal bowel sounds, no guarding or rigidity. EXTREMITIES: No clubbing, no edema, no cyanosis, 2+ pulses and upper and lower extremities. MUSCULOSKELETAL: Muscle strength and tone normal. SPINE: No scoliosis or deformity SKIN: No rashes CENTRAL NERVOUS SYSTEM: Alert and oriented -3. No focal deficits, tone is normal in all 4 extremities. PSYCHIATRIC: Alert and oriented -3. Appropriate affect. Intact judgment and insight. - Labs CBC & Chem 7: 07/12/19 09:28 07/12/19 06:38 Labs: Abnormal Lab Results - Last 24 Hours (Table) 07/10/19 07/11/19 07/12/19 Range/Units 06:02 20:22 06:38 RBC (4.30-5.90) m/uL Hgb (13.0-17.5) gm/dL Hct (39.0-53.0) % RDW (11.5-15.5) % Plt Count (150-450) k/uL Monocytes # (Manual) (0-1.0) k/uL Potassium 3.4 L (3.5-5.1) mmol/L BUN 8 L (9-20) mg/dL Creatinine 0.63 L (0.66-1.25) mg/dL Glucose 72 L (74-99) mg/dL POC Glucose (mg/dL) 122 H (75-99) mg/dL Calcium 8.1 L (8.4-10.2) mg/dL Alkaline Phosphatase 155 H (38-126) U/L Total Protein 6.2 L (6.3-8.2) g/dL Albumin 2.8 L (3.5-5.0) g/dL RBC Folate 1,507 H (280 - 791) ng/mL 07/12/19 07/12/19 Range/Units 06:38 09:28 RBC 2.35 L (4.30-5.90) m/uL Hgb 7.6 L (13.0-17.5) gm/dL Hct 22.2 L (39.0-53.0) % RDW 19.4 H (11.5-15.5) % Plt Count 90 L 100 L (150-450) k/uL Monocytes # (Manual) 2.30 H (0-1.0) k/uL Potassium (3.5-5.1) mmol/L BUN (9-20) mg/dL Creatinine (0.66-1.25) mg/dL Glucose (74-99) mg/dL POC Glucose (mg/dL) (75-99) mg/dL Calcium (8.4-10.2) mg/dL Alkaline Phosphatase (38-126) U/L Total Protein (6.3-8.2) g/dL Albumin (3.5-5.0) g/dL RBC Folate (280 - 791) ng/mL Assessment and Plan Plan: Assessment: 1 acute gastrointestinal bleeding with black tarry stools and hemoglobin of 5.3, posttransfusion hemoglobin. The patient underwent endoscopy. Hemoglobin is stable at 7.8. There is some mild gastritis. No other acute are not is noted. Biopsies were taken. On 07/12/2019 patient has been prepped for colonoscopy, no active bleeding since last Monday, today hemoglobin is 7.6, hemodynamically patient remains stable 2 anemia secondary to above . Hemoglobin is stable for now. This is an acute on top of chronic anemia 3 hepatocellular carcinoma diagnosed in 2017 currently maintained on Cabometyx/cabozantinib 4 thrombocytopenia, platelet count 64,000 5 psoriatic arthritis, on Remicade 6 diabetes mellitus 7 hypertension, history of 8 hyperlipidemia 9 remote history of tobacco dependence for 20 years however quit 30 years ago 10 obstructive sleep apnea intolerant to CPAP Plan: Patient remains stable hemodynamically, there has been no further active bleeding, remains on PPI therapy, no acute events overnight, no complaints of chest pain or shortness of breath. Awaiting colonoscopy today, we will sign off and follow the patient on as-needed basis I performed a history & physical examination of the patient and discussed their management with my nurse practitioner, Zaira Fuentes. I reviewed the nurse practitioner's note and agree with the documented findings and plan of care. Lung sounds are positive for clear breath sounds. The findings and the impression was discussed with the patient. I attest to the documentation by the nurse practitioner. Time with Patient: Less than 30
[2019-07-12] MEDS ORDERED: SODIUM FERRIC GLUCONAT-SUCROSE 125 MG in SODIUM CHLORIDE 0.9% 100 ML IVPB ONE ×2 (14:58→16:00)
--- NOTE | 2019-07-12 15:21 | P.PCN ---
Date of Procedure: 07/12/19 Description of Procedure: BRIEF HISTORY: Pleasant 79-year-old male with multiple medical comorbidities including a reported history from the patient's of Santos cirrhosis and subsequent development of hepatocellular carcinoma for which she has received treatment at [facility]. He presents with complaints of melanotic stool and was found to have a hemoglobin of 5.3 subsequently transfused and is improved to 7.3. Stool testing was positive for blood with patient reporting one further small smear of dark tarry stool today. EGD showed mild gastritis yesterday. PROCEDURE PERFORMED: Colonoscopy with polypectomy. PREOPERATIVE DIAGNOSIS: Anemia acute blood loss, GI bleed. ESTIMATED BLOOD LOSS: Minimal. IV sedation per Anesthesia. PROCEDURE: After informed consent was obtained, the patient, was brought into the endoscopy unit. IV sedation was administered by Anesthesia under continuous monitoring. Digital rectal examination was normal. Initially the Olympus CF-190 flexible video colonoscope was then inserted in the rectum, gradually advanced into the cecum without any difficulty. Careful examination was performed as the scope was gradually being withdrawn. Ileocecal valve and the appendiceal orifice were visualized and appeared normal. Prep was excellent. Mucosa of the cecum, ascending colon, transverse colon, descending colon, sigmoid colon, and rectum appeared normal. Diminutive 2 mm ascending colon polyp removed with cold forcep polypectomy. Multiple small mouth diverticula in the left colon noted. Retroflexion was performed in the rectum and no lesions were seen. The patient tolerated the procedure well. IMPRESSION: Mild left colonic diverticulosis. Diminutive ascending colon polyp removed with cold forceps. RECOMMENDATIONS: Findings of this examination were discussed with the patient in his . Okay to resume diet and medications. Await pathology from polypectomy. Okay for discharge from gastroenterology if otherwise stable.
--- NOTE | 2019-07-12 15:35 | P.DS ---
<Irais Rogers P - Last Filed: 07/12/19 15:22> Providers Expected date of discharge: 07/12/19 Hospital Course: Discharge diagnosis 1. Anemia secondary to GI bleed. Stool positive for occult blood. Patient reports last dark tarry stool on Monday07/06/2019. Hemoglobin 5.7. 2 units of PRBCs were given. GI services following. patient maintained on clear liquid diet. Received total 3 units of PRBCs since admission. Hemoglobin stable 7.6. Patient underwent EGD this morning at bedside. Per GI no no active bleed was found. GI appreciated mild gastritis, biopsies taken. Along with duodenal biopsies. Will maintain on Protonix daily. Plan for colonoscopy this afternoon. Colonoscopy completed, results showing mild left colonic diverticulitis and the polyp removed with cold forceps. Per Dr. Valadez, findings discussed with , okay to resume diet and medications. Patient will be on Protonix by mouth for 30 days. Also, recommending that patient receive dose of IV iron before discharge home. Patient and his agree with this plan. Otherwise he has been cleared for discharge. Follow-up outpatient for repeat CBC with Dr. Calderon in 3 days. 2. History of liver cancer with metastatic disease. Patient reports he follows with Dr. Cote out of [facility]. Patient's reports that current chemotherapy is currently on hold due to dental procedure planned. Follow-up with oncologist outpatient regarding restarting medication. 3. thrombocytopenia secondary to cancer chemotherapy. platelets 100 4. Diabetes mellitus type 2. Metformin on hold sliding scale insulin ordered 5. Essential hypertension. Home meds resumed with parameters 6. History of CVA 7. History of hearing disorder 8. Hyperlipidemia 9. Prostate disorder 10. History of cholecystectomy 11. History of anxiety 12. Hypokalemia. Potassium is 3.4 likely due to GI prep for colonoscopy. Replacement per nursing protocol 40Meq. Hospital course This is a 79-year-old male patient of Dr. Calderon. Patient presented with complaints of increased weakness and potential GI bleed. Patient reports that he had a dark tarry stool on Monday. At that time patient refused to go to ER per . Patient became increasingly weak over the past few days. Patient complains of generalized right upper quadrant and flank pain which is chronic per patient related to his known liver cancer. Patient has metastatic liver cancer in which he follows with Dr. Baker at [facility]. Patient reports he just has been feeling very weak and tired. Hemoglobin upon arrival he 5.7 patient denies any nausea or vomiting but does report decreased appetite. Additional medical history includes liver cancer in which she is currently on chemotherapy therapy. Per patient's chemotherapy has been on hold for dental procedure. Chest x-ray completed showing no acute cardiopulmonary process. Patchy midlung densities appear to be represent pleural calcifications when correlated with the CT of 10/15/2016. Patient reports last colonoscopy was approximately [address] Phelps. Additional medical history includes chronic thrombocytopenia, CVA, diabetes mellitus, GERD, hearing disorder, hyperlipidemia, hypertension, prostate disorder, cholecystectomy and anxiety. Hgb5.7, platelets 90. Stool for occult blood positive. At this time to unit PRBCs have been ordered. Patient will be admitted to the intensive care unit. GI, oncology and critical care service is consulted. Vitals are stable at this time. At this time patient denies chest pain or shortness of breath. Patient denies nausea vomiting or diarrhea. Patient denies any urinary burning or frequency On 07/10/2019 Hemoglobin 7.3 this AM. Patient did receive 3 units of PRBCs. Patient is alert and oriented 3. Patient still complaining of some chronic upper right abdominal pain. Vitals have remained stable. GI oncology and critical care service is following. At this time patient denies chest pain or shortness of breath. Patient denies nausea vomiting or diarrhea. Patient d enies any urinary burning or frequency. On 07/11/2019 patient is resting comfortably in bed, denies any discomfort at this time. Hemoglobin is 7.8. Patient underwent upper endoscopy at bedside this morning. Per GI services no active bleeding found. Biopsies obtained. Patient will be maintained on Protonix. Vital signs remain stable. Patient has not had a bowel movement since Monday. Patient denies any shortness of breath, chest pain. Patient denies any nausea vomiting or diarrhea. Patient denies any urinary burning or frequency. On 07/12/2019 patient is resting comfortably in bed. Hemoglobin 7.6. EDG was negative for active bleed. Plan for colonoscopy today. Patient underwent GI prep overnight. Potassium 3.4 today likely related to GI prep. Will be replaced per nursing protocol. He denies any shortness breath, chest pain. Patient denies any nausea vomiting. Patient has any urinary burning or frequency. Patient has been cleared for discharge by GI services. Patient to receive IV iron prior to discharge I performed an examination of the patient and discussed their management with the Nurse Practitioner. I have reviewed the Nurse Practitioner's notes and a gree with the documented findings and plan of care Patient Condition at Discharge: Stable Plan - Discharge Summary Discharge Rx Participant: Yes New Discharge Prescriptions: New Ferrous Sulfate [Iron] 325 mg PO DAILY 30 Days #30 tablet Pantoprazole Sodium [Protonix] 40 mg PO DAILY 30 Days #30 tablet.dr Continue metFORMIN HCL [Glucophage] 850 mg PO HS Potassium Chloride ER [K-Dur 10] 10 meq PO DAILY HYDROcodone/APAP 10-325MG [[place] 10-325] 1 tab PO TID PRN PRN Reason: Pain Furosemide [Lasix] 20 mg PO DAILY Cyclobenzaprine [Flexeril] 10 mg PO HS PRN PRN Reason: Muscle Spasm Tamsulosin [Flomax] 0.4 mg PO HS Gabapentin [Neurontin] 800 mg PO HS Multivit-Min/FA/Lycopen/Lutein [Centrum Silver Tablet] 1 tab PO DAILY Cholecalciferol [Vitamin D3 (25 Mcg = 1000 Iu)] 5,000 unit PO DAILY inFLIXimab [Remicade] 600 mg IV Q180D Carvedilol [Coreg] 6.25 mg PO BID Enalapril [Vasotec] 5 mg PO HS Pravastatin Sodium [Pravachol] 40 mg PO HS Discontinued Cabozantinib S-Malate [Cabometyx] 20 mg PO DIRECTED Discharge Medication List Furosemide [Lasix] 20 mg PO DAILY 01/21/14 [History] HYDROcodone/APAP 10-325MG [[place] 10-325] 1 tab PO TID PRN 01/21/14 [History] Potassium Chloride ER [K-Dur 10] 10 meq PO DAILY 01/21/14 [History] metFORMIN HCL [Glucophage] 850 mg PO HS 01/21/14 [History] Cyclobenzaprine [Flexeril] 10 mg PO HS PRN 07/05/16 [History] Gabapentin [Neurontin] 800 mg PO HS 07/05/16 [History] Tamsulosin [Flomax] 0.4 mg PO HS 07/05/16 [History] Cholecalciferol [Vitamin D3 (25 Mcg = 1000 Iu)] 5,000 unit PO DAILY 09/30/16 [History] Multivit-Min/FA/Lycopen/Lutein [Centrum Silver Tablet] 1 tab PO DAILY 09/30/16 [History] inFLIXimab [Remicade] 600 mg IV Q180D 09/30/16 [History] Carvedilol [Coreg] 6.25 mg PO BID 07/09/19 [History] Enalapril [Vasotec] 5 mg PO HS 07/09/19 [History] Pravastatin Sodium [Pravachol] 40 mg PO HS 07/09/19 [History] Ferrous Sulfate [Iron] 325 mg PO DAILY 30 Days #30 tablet 07/12/19 [Rx] Pantoprazole Sodium [Protonix] 40 mg PO DAILY 30 Days #30 tablet. 07/12/19 [Rx] Follow up Appointment(s)/Referral(s): [facility] [NON-STAFF] - 1-2 Days Felisha Calderon MD [Primary Care Provider] - 1-2 days (Patient to call Dr. Calderon's office Monday to schedule follow up appointment. The office is closed at time of discharge.) Ambulatory/Diagnostic Orders: Complete Blood Count w/diff [LAB.AMB] Time Frame: 3 Days, Location: None Selected Patient Instructions/Handouts: Iron Supplements (By mouth), Pantoprazole (By mouth), Gastrointestinal Bleeding (DC), Weakness (DC) Activity/Diet/Wound Care/Special Instructions: Activity as tolerated Regular diet as tolerated Patient will follow up with oncology services at [facility] Discharge Disposition: HOME WITH HOME HEALTH SERVICES <Sammi Pickering - Last Filed: 07/18/19 10:06> Providers Date of admission: 07/09/19 14:19 Attending physician: Sammi Pickering Consults: 07/09/19 13:46 Consult Physician Stat Consulting Provider: Nigel Valadez Consult Reason/Comments: GI bleed, liver ca Do you want consulting provider notified?: Yes Consult Physician Urgent Consulting Provider: Rob Bautista Consult Reason/Comments: GI bleed, ICU mgmt Do you want consulting provider notified?: Yes Consult Physician Urgent Consulting Provider: Macario Amos Consult Reason/Comments: Liver CA, GI bleed Do you want consulting provider notified?: Yes Primary care physician: Felisha Calderon Hospital Course: EGD and colonscopy performed. patient cleared for D/C from GI. Patient and instructed to return to ER if symptoms of bleeding present
[2019-07-12 15:56] VITALS: TEMP 97.6
[2019-07-12 15:57] VITALS: BP 123/60; PULSE 70; RESP 18
== END 2019-07-12 16:45 | disposition home health service (06) | DRG 378 ==
LOC: EC 11:05 → 2SICU 14:19 → 3NMEDONC 07-11 22:41
PROVIDERS: ADMIT Internal Medicine; ATTEND Internal Medicine
PROC: 30233N1 Transfusion of Nonautologous Red Blood Cells into Peripheral Vein, Percutaneous Approach (ICD-10-PCS; principal; 2019-07-09)
PROC: 0DB78ZX Excision of Stomach, Pylorus, Via Natural or Artificial Opening Endoscopic, Diagnostic (ICD-10-PCS; 2019-07-11)
PROC: 0DB98ZX Excision of Duodenum, Via Natural or Artificial Opening Endoscopic, Diagnostic (ICD-10-PCS; 2019-07-11)
PROC: 0DBK8ZZ Excision of Ascending Colon, Via Natural or Artificial Opening Endoscopic (ICD-10-PCS; 2019-07-12)
DX: K57.31 Diverticulosis of large intestine without perforation or abscess with bleeding (principal); C22.0 Liver cell carcinoma; D62 Acute posthemorrhagic anemia; C79.9 Secondary malignant neoplasm of unspecified site; D69.59 Other secondary thrombocytopenia; E11.9 Type 2 diabetes mellitus without complications; E78.5 Hyperlipidemia, unspecified; E87.6 Hypokalemia; F41.9 Anxiety disorder, unspecified; G47.33 Obstructive sleep apnea (adult) (pediatric); G89.29 Other chronic pain; H91.90 Unspecified hearing loss, unspecified ear; I10 Essential (primary) hypertension; J43.9 Emphysema, unspecified; K29.71 Gastritis, unspecified, with bleeding; K63.5 Polyp of colon; K74.60 Unspecified cirrhosis of liver; K75.81 Nonalcoholic steatohepatitis (NASH); L40.50 Arthropathic psoriasis, unspecified; N42.9 Disorder of prostate, unspecified; Z79.84 Long term (current) use of oral hypoglycemic drugs; Z79.899 Other long term (current) drug therapy; Z80.0 Family history of malignant neoplasm of digestive organs; Z80.42 Family history of malignant neoplasm of prostate; Z86.73 Personal history of transient ischemic attack (TIA), and cerebral infarction without residual deficits; Z87.891 Personal history of nicotine dependence
CPT/HCPCS: 36415; 36430; 43239; 45380; 71046; 80053; 82105; 82140; 82272; 82607; 82728; 82747; 83540; 83550; 83735; 83921; 84484; 85025; 85027; 85049; 85610; 85730; 86038; 86431; 86850; 86900; 86901; 86920; 88305; 96361; 96374; 99291

== ENCOUNTER → 2019-08-06 | Outpatient (CLI) | payer MEDICARE, BC ==
[2019-08-06 10:52] VITALS: RESP 18; TEMP 98.1
[2019-08-06 12:46] VITALS: BP 100/54; PULSE 59
== END | disposition home or self-care (01) ==
LOC: PROCWHC3 10:38
PROVIDERS: ATTEND Internal Medicine Rheumatology
DX: L40.53 Psoriatic spondylitis (principal)
CPT/HCPCS: 96413; 96415; Q5103

== ENCOUNTER 2019-09-09 09:36 | Emergency (ER) | payer MEDICARE, BC ==
[2019-09-09 10:00] VITALS: TEMP 97
--- NOTE | 2019-09-09 10:22 | ED ---
Fall HPI - General Chief Complaint: Fall Stated Complaint: fall, head injury Time Seen by Provider: 09/09/19 10:03 Source: patient, EMS, old records reviewed Mode of arrival: EMS Limitations: no limitations - History of Present Illness Initial Comments: 79-year-old male presents emergency department via EMS chief complaint of a fall. Patient states she is using his walker was going too fast caught the lip on the floor states that he fell.Patient fell striking his left shoulder states he had very minor head injury symptoms states that he seemed to be confused, lethargic earlier but states has no complaints of time seems to be at his normal baseline. Patient does have underlying cancer with metastasis. Patient denies any current complaints and neck, back, lower extremity pain worsened usual - Related Data Home Medications Medication Instructions Recorded Confirmed Furosemide [Lasix] 20 mg PO DAILY 01/21/14 08/06/19 HYDROcodone/APAP 10-325MG [[place] 1 tab PO TID PRN 01/21/14 08/06/19 10-325] Potassium Chloride ER [K-Dur 10] 10 meq PO DAILY 01/21/14 08/06/19 metFORMIN HCL [Glucophage] 850 mg PO HS 01/21/14 08/06/19 Cyclobenzaprine [Flexeril] 10 mg PO HS PRN 07/05/16 08/06/19 Gabapentin [Neurontin] 800 mg PO HS 07/05/16 08/06/19 Tamsulosin [Flomax] 0.4 mg PO HS 07/05/16 08/06/19 Cholecalciferol [Vitamin D3 (25 5,000 unit PO DAILY 09/30/16 08/06/19 Mcg = 1000 Iu)] Multivit-Min/FA/Lycopen/Lutein 1 tab PO DAILY 09/30/16 08/06/19 [Centrum Silver Tablet] inFLIXimab [Remicade] 600 mg IV Q180D 09/30/16 08/06/19 Carvedilol [Coreg] 6.25 mg PO BID 07/09/19 08/06/19 Enalapril [Vasotec] 5 mg PO HS 07/09/19 08/06/19 Pravastatin Sodium [Pravachol] 40 mg PO HS 07/09/19 08/06/19 Cabozantinib S-Malate [Cabometyx] 20 mg PO DAILY 08/06/19 08/06/19 Previous Rx's Medication Instructions Recorded Ferrous Sulfate [Iron] 325 mg PO DAILY 30 Days #30 tablet 07/12/19 Pantoprazole Sodium [Protonix] 40 mg PO DAILY 30 Days #30 07/12/19 tablet. Allergies Allergy/AdvReac Type Severity Reaction Status Date / Time No Known Allergies Allergy Verified 09/09/19 09:57 Review of Systems ROS Statement: Those systems with pertinent positive or pertinent negative responses have been documented in the HPI. ROS Other: All systems not noted in ROS Statement are negative. Past Medical History Past Medical History: Blood Disorder, Cancer, Chest Pain / Angina, COPD, CVA/TIA, Diabetes Mellitus, GERD/Reflux, Hearing Disorder / Deafness, Hyperlipidemia, Hypertension, Liver Disease, Prostate Disorder, Sleep Apnea/CPAP/BIPAP Additional Past Medical History / Comment(s): DIFF HEARING R&L/HEART MURMUR/POOR CIRCULATION/ENLARGED HEART/BRADYCARDIA/PSORIASIS/EMPHYSEMA/FATTY LIVER. LOW PLATELETS. Liver Cancer 2017, psoriatic arthritis History of Any Multi-Drug Resistant Organisms: None Reported Past Surgical History: Cholecystectomy, Heart Catheterization, Hernia Repair Additional Past Surgical History / Comment(s): BRONCHOSCOPY/CATARACT REMOVAL L&R/EGD/COLONOSCOPY/RT KNEE ARTHROSCOPIC /BULLETS REMOVED FROM LT ARM AND CHEST 1970'S/CIRCUMCISION, LIVER BIOPSY Past Anesthesia/Blood Transfusion Reactions: No Reported Reaction Past Psychological History: Anxiety Smoking Status: Former smoker Past Alcohol Use History: None Reported Past Drug Use History: None Reported - Past Family History Father Family Medical History: Cancer Additional Family Medical History / Comment(s): PROSTATE CANCER Brother(s) Family Medical History: Cancer Additional Family Medical History / Comment(s): COLON CANCER. Son(s) Family Medical History: Liver Disease (Non EtOH cirrhosis, required transplant at 8 years old) General Exam General appearance: alert, in no apparent distress Head exam: Present: atraumatic, normocephalic, normal inspection Eye exam: Present: normal appearance, PERRL, EOMI. Absent: scleral icterus, conjunctival injection, periorbital swelling ENT exam: Present: normal exam, normal oropharynx, mucous membranes moist Neck exam: Present: normal inspection, full ROM. Absent: tenderness, meningismus, lymphadenopathy Respiratory exam: Present: normal lung sounds bilaterally. Absent: respiratory distress, wheezes, rales, rhonchi, stridor Cardiovascular Exam: Present: regular rate, normal rhythm, normal heart sounds. Absent: systolic murmur, diastolic murmur, rubs, gallop, clicks GI/Abdominal exam: Present: soft, normal bowel sounds. Absent: distended, tenderness, guarding, rebound, rigid Extremities exam: Present: other (Left shoulder limited range of motion, tenderness palpation no obvious deformity neurovascular intact) Neurological exam: Present: alert, oriented X3, motor sensory deficit Course Vital Signs 09/09/19 09/09/19 09/09/19 09:58 10:00 11:00 Temperature 97.0 F L Pulse Rate 65 67 65 Respiratory 16 20 20 Rate Blood Pressure 145/63 127/65 125/63 O2 Sat by Pulse 100 98 98 Oximetry Medical Decision Making - Medical Decision Making CT of the brain, C-spine and x-rays of the shoulder show no acute abnormality there is chronic changes noted. Patient be discharged stable condition. Disposition Clinical Impression: Fall, Left shoulder pain Disposition: HOME SELF-CARE Condition: Stable Instructions (If sedation given, give patient instructions): Fall Prevention for Older Adults (ED) Additional Instructions: Please return to the Emergency Department if symptoms worsen or any other concerns. Is patient prescribed a controlled substance at d/c from ED?: No Referrals: None,Stated [REFERRING] - 1-2 days Time of Disposition: 11:24
--- NOTE | 2019-09-09 11:07 | XR ---
EXAMINATION TYPE: XR shoulder complete LT DATE OF EXAM: 09/09/2019 CLINICAL HISTORY: Left shoulder pain after fall TECHNIQUE: Three views of the left shoulder are obtained. COMPARISON: None. FINDINGS: There is no acute fracture/dislocation evident in the left shoulder. There is diffuse osse ous demineralization and advanced degenerative change of the left shoulder with moderate to severe le ft glenohumeral arthropathy and severe chromic clavicular arthropathy. Left-sided Mediport is partial ly visualized. Heterogenous bone marrow is attributable to osseous demineralization. IMPRESSION: There is no acute fracture or dislocation in the left shoulder. Advanced arthropathy of the left shoulder and diffuse osseous demineralization.
--- NOTE | 2019-09-09 11:10 | CT ---
EXAMINATION TYPE: CT brain yashine wo con DATE OF EXAM: 09/09/2019 COMPARISON: Brain 07/05/2016 HISTORY: 79-year-old male Fall, head injury CT DLP: 1403.8 mGycm Automated exposure control for dose reduction was used. Technique: Examination of the head was done in axial plane without intravenous contrast. Coronal and sagittal reconstructions performed. CT of the cervical spine was obtained in axial plane without intravenous injection of contrast mater ial. Coronal and sagittal reformatted images were obtained from the axial views for evaluation of f ractures, spinal alignment and canal. FINDINGS: Head: There is no evidence of acute intracranial hemorrhage, acute ischemic changes, mass, mass-effect, or extra-axial fluid collection. There is no effacement of cerebral sulci or basal subarachnoid cister ns. There is no hydrocephalus. There is no midline shift. Cancino-white matter distinction is preserv ed. Scattered mild mucosal thickening ethmoid air cells. Nasal septal deviation. Mastoid air cells are well pneumatized. Orbits and globes are intact. No calv arial fracture. Atherosclerotic calcifications within the carotid siphons. Old lacunar infarct right basal ganglia un changed. Mild age-related transtentorial volume loss. Cervical spine: A left IJ CVC is present. Mild to moderate degenerative disc disease mid to lower cervical spine. Mild narrowing of the spinal canal at C3-C4. Alignment is maintained. Scattered facet and uncovertebral joint arthropathy is prese nt throughout. No acute fracture seen. No craniocervical junction abnormality, predental space widening, or preverte bral soft tissue swelling. Degenerative changes of the C1 dens articulation. Moderate left neuroforaminal stenosis at C3-C4, [id number] on the left at C4-C5, and moderate a t both sites that C5-C6. Sagittal and coronal reformatted images confirm above findings. COMBINED IMPRESSION: 1. No acute intracranial abnormality seen. Mild chronic ethmoid sinus disease. 2. No acute fracture or malalignment of the cervical spine. Moderate spondylotic change mid to lower cervical spine.
[2019-09-09 11:14] VITALS: BP 125/63; PULSE 65; RESP 20
[2019-09-09 12:12] LABS: Anisocytosis Slight; HCT 31.4 % (39.0-53.0); HGB 10.5 gm/dL (13.0-17.5); MCH 30.7 pg (25.0-35.0); MCHC 33.3 g/dL (31.0-37.0); Mean Platelet Volume 10.6; RBC 3.41 m/uL (4.30-5.90); RDW 17.6 % (11.5-15.5); WBC 4.7 k/uL (3.8-10.6)
[2019-09-09 12:54] LABS: MCV 92.1 fL (80.0-100.0)
[2019-09-09 12:58] LABS: Band Neutrophils % 1 %; Eosinophils # (M) 0.05 k/uL (0-0.7); Lymphocytes # (M) 1.18 k/uL (1.0-4.8); Metamyelocytes # (M) 0.05 k/uL (0); Metamyelocytes % 1 %; Myelocytes # (M) 0.05 k/uL (0); Myelocytes % 1 %; Neutrophils % (M) 39 %; Nucleated Red Blood Cells 0 /100 WBC (0-0); Platelet Count 79 k/uL (150-450); Total Cells Counted 200
== END 2019-09-09 12:01 | disposition home or self-care (01) ==
LOC: EC 09:36
DX: M25.512 Pain in left shoulder (principal); R93.89 Abnormal findings on diagnostic imaging of other specified body structures; S09.90XA Unspecified injury of head, initial encounter; C22.8 Malignant neoplasm of liver, primary, unspecified as to type; C79.9 Secondary malignant neoplasm of unspecified site; E78.5 Hyperlipidemia, unspecified; I10 Essential (primary) hypertension; H91.93 Unspecified hearing loss, bilateral; E11.9 Type 2 diabetes mellitus without complications; K21.9 Gastro-esophageal reflux disease without esophagitis; L40.50 Arthropathic psoriasis, unspecified; N42.9 Disorder of prostate, unspecified; G47.30 Sleep apnea, unspecified; F41.9 Anxiety disorder, unspecified; Z87.891 Personal history of nicotine dependence; Z79.84 Long term (current) use of oral hypoglycemic drugs; Z79.899 Other long term (current) drug therapy; Z99.89 Dependence on other enabling machines and devices; W01.0XXA Fall on same level from slipping, tripping and stumbling without subsequent striking against object, initial encounter; Y93.01 Activity, walking, marching and hiking
CPT/HCPCS: 36415; 70450; 72125; 85025; 99284

== ENCOUNTER 2019-09-17 18:46 | Inpatient (IN) | payer MEDICARE, BC ==
[2019-09-17] MEDS ORDERED: ONDANSETRON 4 MG/2 ML VIAL IVP STA (19:10)
[2019-09-17] MEDS ORDERED: SODIUM CHLORIDE 0.9% 1,000 ML IV STA ×2 (19:10)
[2019-09-17] MEDS ORDERED: PANTOPRAZOLE 40 MG/10 ML VIAL IVP STA (19:10)
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
[2019-09-17 19:30] LABS: Anisocytosis Slight; HCT 24.9 % (39.0-53.0); MCH 30.8 pg (25.0-35.0); MCHC 33.7 g/dL (31.0-37.0); MCV 91.6 fL (80.0-100.0); Mean Platelet Volume 9.9; Poikilocytosis Slight; RBC 2.72 m/uL (4.30-5.90); WBC 6.8 k/uL (3.8-10.6)
[2019-09-17 19:33] LABS: HGB 8.4 gm/dL (13.0-17.5); Platelet Count 131 k/uL (150-450)
[2019-09-17 19:34] LABS: ALT 44 U/L (4-49); AST 83 U/L (17-59); African American GFR (CKD) >90 (>60 ml/min/1.73 sqM); Albumin 3.5 g/dL (3.5-5.0); Alkaline Phosphatase 223 U/L (38-126); Anion Gap 14 mmol/L; Blood Urea Nitrogen 50 mg/dL (9-20); Calcium 8.9 mg/dL (8.4-10.2); Carbon Dioxide 23 mmol/L (22-30); Chloride 103 mmol/L (98-107); Glucose 132 mg/dL (74-99); Magnesium 1.4 mg/dL (1.6-2.3); Non-African American GFR(CKD) >90 (>60 ml/min/1.73 sqM); Potassium 4.6 mmol/L (3.5-5.1); Sodium 140 mmol/L (137-145); Total Bilirubin 1.6 mg/dL (0.2-1.3); Total Protein 7.6 g/dL (6.3-8.2)
[2019-09-17 19:52] LABS: INR 1.4 (<1.2); Partial Thromboplastin Time 26.2 sec (22.0-30.0); Prothrombin Time 13.7 sec (9.0-12.0)
[2019-09-17] MEDS ORDERED: NALOXONE 0.4 MG/ML 1 ML VIAL IV PRN (20:01)
[2019-09-17 20:04] LABS: Lymphocytes # (M) 1.29 k/uL (1.0-4.8); Monocytes # (M) 2.24 k/uL (0-1.0); Neutrophils # (M) 3.26 k/uL (1.3-7.7); Neutrophils % (M) 48 %; Nucleated Red Blood Cells 0 /100 WBC (0-0); Total Cells Counted 100
[2019-09-17] MEDS ORDERED: CYCLOBENZAPRINE 10 MG TAB PO PRN (22:52)
[2019-09-17] MEDS ORDERED: Magnesium Replacement Protocol 1 EACH MISC MISCELLANE PRN (22:55)
[2019-09-17] MEDS ORDERED: metFORMIN 850 MG TAB PO SCH (23:00)
[2019-09-17] MEDS ORDERED: PRAVASTATIN SODIUM 40 MG TAB PO SCH (23:00)
[2019-09-18] MEDS ORDERED: ONDANSETRON 4 MG/2 ML VIAL IVP PRN (00:12)
[2019-09-18] MEDS: MORPHINE SULFATE 2 MG/ML SYRINGE IVP PRN ×3 (00:42→22:12)
[2019-09-18] MEDS: CARVEDILOL 6.25 MG TAB PO SCH ×3 (01:05→17:38)
[2019-09-18] MEDS: TAMSULOSIN 0.4 MG CAP.ER.24H PO SCH ×2 (01:05→22:05)
[2019-09-18] MEDS: GABAPENTIN 400 MG CAP PO SCH ×2 (01:05→22:04)
[2019-09-18] MEDS: MAGNESIUM SULFATE-D5W PMX 1 GM in DEXTROSE/WATER 1 100ML.BAG IVPB SCH ×3 (01:13→04:42)
[2019-09-18] MEDS: LORazepam 2 MG/ML INJ IV PRN ×3 (02:11→15:22)
[2019-09-18 07:28] LABS: Band Neutrophils % 5 %; Neutrophils % (M) 40 %; Nucleated Red Blood Cells 0 /100 WBC (0-0); Total Cells Counted 100
[2019-09-18 07:52] LABS: Eosinophils # (M) 0.06 k/uL (0-0.7); HGB 7.7 gm/dL (13.0-17.5); MCH 30.7 pg (25.0-35.0); MCHC 33.5 g/dL (31.0-37.0); MCV 91.5 fL (80.0-100.0); Monocytes # (M) 1.86 k/uL (0-1.0); RBC 2.51 m/uL (4.30-5.90); RDW 18.4 % (11.5-15.5); WBC 6.4 k/uL (3.8-10.6)
[2019-09-18 07:53] LABS: Mean Platelet Volume 9.6
[2019-09-18 07:55] LABS: Platelet Count 87 k/uL (150-450)
[2019-09-18 09:04] LABS: ALT 42 U/L (4-49); AST 87 U/L (17-59); African American GFR (CKD) >90 (>60 ml/min/1.73 sqM); Alkaline Phosphatase 214 U/L (38-126); Anion Gap 9 mmol/L; Blood Urea Nitrogen 42 mg/dL (9-20); Calcium 8.4 mg/dL (8.4-10.2); Carbon Dioxide 25 mmol/L (22-30); Chloride 107 mmol/L (98-107); Glucose 98 mg/dL (74-99); Non-African American GFR(CKD) >90 (>60 ml/min/1.73 sqM); Potassium 4.5 mmol/L (3.5-5.1); Sodium 141 mmol/L (137-145); Total Bilirubin 1.7 mg/dL (0.2-1.3); Total Protein 6.9 g/dL (6.3-8.2)
[2019-09-18] MEDS: POTASSIUM CHLORIDE ER 10 MEQ TAB.ER.PRT PO SCH (09:08)
[2019-09-18] MEDS: MULTIVITAMINS, THERA 1 EACH TAB PO SCH (09:08)
[2019-09-18] MEDS: FUROSEMIDE 20 MG TAB PO SCH (09:08)
[2019-09-18] MEDS: CHOLECALCIFEROL 1,000 UNIT TAB PO SCH (09:08)
[2019-09-18 10:21] LABS: Amylase 36 U/L (30-110)
--- NOTE | 2019-09-18 10:40 | P.HPIM ---
History of Present Illness H&P Date: 09/18/19 Chief Complaint: weakness, GI bleed Patient is 79-year-old male seen today on 09/18/2019 in the emergency room. Patient was admitted on 09/17/2019 his noticed some coffee-ground emesis on 09/17/2019 with increasing weakness. Patient has a history of GI bleed and was seen 07/2019 at [facility] where upper and lower GI scopes were performed revealing diverticulosis. Upon coming to the ER patient was seen to have a lactic acid of 3.2, hemoglobin 7.7, hematocrit 23.0, WBC 6.4. Patient is currently receiving one of 2 units of PRBCs in emergency department. Patient was given Valenzuela catheter in emergency department which resulted in 1400 mL of urine output. Patient's states the patient continues to receive oral chemo at home for history of liver CA, patient follows with Dr. Castro at [facility]. Patient denies shortness of breath, denies chest pain, denies recent illness or fevers. Patient stated he did not have a bowel movement 1 week in which gave stool softener that resulted in bowel movement. Patient's stated that he fell on 09/09/2019 which resulted in patient hitting his head. Patient was brought to the emergency room where a head CT and shoulder x-ray were performed. Head CT revealed no acute intracranial abnormality. Patient placed in patient has become increasingly restless and unable to sleep for the past several weeks, patient also is beginning to have bouts of confusion at home. Per patient was receiving by mouth Xanax 0.25 mg at bedtime for sleep disturbances. 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 Patient is currently resting comfortably in bed, patient wakes up for a stress but does not follow many commands. Patient's lungs are clear to auscultation, bowel sounds are clear to auscultation in all quadrants. Review of Systems Please see HPI otherwise unremarkable Past Medical History Past Medical History: Blood Disorder, Cancer, Chest Pain / Angina, COPD, CVA /TIA, Diabetes Mellitus, GERD/Reflux, Hearing Disorder / Deafness, Hyperlipidemia, Hypertension, Liver Disease, Prostate Disorder, Sleep Apnea/CPAP/BIPAP Additional Past Medical History / Comment(s): DIFF HEARING R&L/HEART MURMUR/POOR CIRCULATION/ENLARGED HEART/BRADYCARDIA/PSORIASIS/EMPHYSEMA/FATTY LIVER. LOW PLATELETS. Liver Cancer 2017, psoriatic arthritis History of Any Multi-Drug Resistant Organisms: None Reported Past Surgical History: Cholecystectomy, Heart Catheterization, Hernia Repair Additional Past Surgical History / Comment(s): BRONCHOSCOPY/CATARACT REMOVAL L&R/EGD/COLONOSCOPY/RT KNEE ARTHROSCOPIC /BULLETS REMOVED FROM LT ARM AND CHEST 1970'S/CIRCUMCISION, LIVER BIOPSY Past Anesthesia/Blood Transfusion Reactions: No Reported Reaction Past Psychological History: Anxiety Smoking Status: Former smoker Past Alcohol Use History: None Reported Additional Past Alcohol Use History / Comment(s): QUIT DRINKING 30 YEARS AGO. Past Drug Use History: None Reported - Past Family History Father Family Medical History: Cancer Additional Family Medical History / Comment(s): PROSTATE CANCER Brother(s) Family Medical History: Cancer Additional Family Medical History / Comment(s): COLON CANCER. Son(s) Family Medical History: Liver Disease Medications and Allergies Home Medications Medication Instructions Recorded Confirmed Type Furosemide [Lasix] 20 mg PO DAILY 01/21/14 09/18/19 History HYDROcodone/APAP 10-325MG [[place] 2 tab PO Q8H PRN 01/21/14 09/18/19 History 10-325] Potassium Chloride ER [K-Dur 10] 10 meq PO DAILY 01/21/14 09/18/19 History metFORMIN HCL [Glucophage] 850 mg PO HS 01/21/14 09/18/19 History Cyclobenzaprine [Flexeril] 10 mg PO HS PRN 07/05/16 09/17/19 History Gabapentin [Neurontin] 800 mg PO HS 07/05/16 09/18/19 History Tamsulosin [Flomax] 0.4 mg PO HS 07/05/16 09/18/19 History Cholecalciferol [Vitamin D3 (25 5,000 unit PO DAILY 09/30/16 09/17/19 History Mcg = 1000 Iu)] Multivit-Min/FA/Lycopen/Lutein 1 tab PO DAILY 09/30/16 09/17/19 History [Centrum Silver Tablet] Carvedilol [Coreg] 6.25 mg PO BID 07/09/19 09/18/19 History Pravastatin Sodium [Pravachol] 40 mg PO HS 07/09/19 09/18/19 History Cabozantinib S-Malate [Cabometyx] 20 mg PO DAILY 08/06/19 09/17/19 History Infliximab-Dyyb [Inflectra] 700 mg IV Q180D 09/17/19 09/17/19 History ALPRAZolam [Xanax] 0.25 mg PO HS PRN 09/18/19 09/18/19 History Enalapril [Vasotec] 5 mg PO DAILY 09/18/19 09/18/19 History Allergies Allergy/AdvReac Type Severity Reaction Status Date / Time No Known Allergies Allergy Verified 09/17/19 21:26 Physical Exam Vitals: Vital Signs Temp Pulse Pulse Resp BP BP Pulse Ox 09/18/19 09:46 98.1 F 90 12 123/61 97 09/18/19 09:36 98.8 F 89 12 123/65 98 09/18/19 08:00 90 16 09/18/19 07:50 98.4 F 90 16 123/54 97 09/18/19 04:00 97.8 F 88 18 105/43 97 09/18/19 02:26 97.8 F 92 18 137/71 98 09/18/19 00:13 97.0 F L 99 18 137/64 98 09/18/19 00:00 97.5 F L 104 H 18 138/67 99 09/17/19 23:43 97.2 F L 104 H 18 134/70 98 09/17/19 23:33 97.5 F L 107 H 18 138/67 99 09/17/19 20:00 96 20 124/53 98 09/17/19 19:30 114 H 16 133/59 99 09/17/19 19:02 110 H 18 98 09/17/19 18:47 96.7 F L 105 H 18 139/74 99 Intake and Output 09/17/19 09/18/19 09/18/19 22:59 06:59 14:59 Intake Total 310 0 Output Total 1999 Balance -1690 0 Intake: Blood Product 310 0 Rc As-1 Unit 0 [id number] Rc As-1 Unit 310 [id number] Output: Urine 1999 Other: Voiding Method Toilet Indwelling Catheter Indwelling Catheter Weight 86.183 kg 84.5 kg Head normocephalic Neck supple Lungs clear to auscultation bilaterally no wheezing or crackles Heart regular rate and rhythm S1-S2, no rub or gallop Abdomen is soft nontender nondistended positive bowel sounds no hepatosp lenomegaly Extremities no edema Neuro intermittent confusion, lethargy Results CBC & Chem 7: 09/18/19 06:31 09/18/19 06:31 Labs: Abnormal Lab Results - Last 24 Hours (Table) 09/17/19 09/17/19 09/17/19 Range/Units 19:00 19:00 19:00 RBC 2.72 L (4.30-5.90) m/uL Hgb 8.4 L D (13.0-17.5) gm/dL Hct 24.9 L (39.0-53.0) % RDW 19.0 H (11.5-15.5) % Plt Count 131 L D (150-450) k/uL Monocytes # (Manual) 2.24 H (0-1.0) k/uL PT 13.7 H (9.0-12.0) sec INR 1.4 H (<1.2) BUN 50 H (9-20) mg/dL Creatinine (0.66-1.25) mg/dL Glucose 132 H (74-99) mg/dL Plasma Lactic Acid Nitesh (0.7-2.0) mmol/L Magnesium 1.4 L (1.6-2.3) mg/dL Total Bilirubin 1.6 H (0.2-1.3) mg/dL AST 83 H (17-59) U/L Alkaline Phosphatase 223 H (38-126) U/L Albumin (3.5-5.0) g/dL Crossmatch 09/17/19 09/17/19 09/17/19 Range/Units 19:00 19:00 23:29 RBC (4.30-5.90) m/uL Hgb (13.0-17.5) gm/dL Hct (39.0-53.0) % RDW (11.5-15.5) % Plt Count (150-450) k/uL Monocytes # (Manual) (0-1.0) k/uL PT (9.0-12.0) sec INR (<1.2) BUN (9-20) mg/dL Creatinine (0.66-1.25) mg/dL Glucose (74-99) mg/dL Plasma Lactic Acid Nitesh 5.8 H* 3.7 H* (0.7-2.0) mmol/L Magnesium (1.6-2.3) mg/dL Total Bilirubin (0.2-1.3) mg/dL AST (17-59) U/L Alkaline Phosphatase (38-126) U/L Albumin (3.5-5.0) g/dL Crossmatch See Detail 09/18/19 09/18/19 09/18/19 Range/Units 03:31 06:31 06:31 RBC 2.51 L (4.30-5.90) m/uL Hgb 7.7 L (13.0-17.5) gm/dL Hct 23.0 L (39.0-53.0) % RDW 18.4 H (11.5-15.5) % Plt Count 87 L (150-450) k/uL Monocytes # (Manual) 1.86 H (0-1.0) k/uL PT (9.0-12.0) sec INR (<1.2) BUN 42 H (9-20) mg/dL Creatinine 0.55 L (0.66-1.25) mg/dL Glucose (74-99) mg/dL Plasma Lactic Acid Nitesh 3.2 H* (0.7-2.0) mmol/L Magnesium (1.6-2.3) mg/dL Total Bilirubin 1.7 H (0.2-1.3) mg/dL AST 87 H (17-59) U/L Alkaline Phosphatase 214 H (38-126) U/L Albumin 3.0 L (3.5-5.0) g/dL Crossmatch 09/18/19 Range/Units 08:02 RBC (4.30-5.90) m/uL Hgb (13.0-17.5) gm/dL Hct (39.0-53.0) % RDW (11.5-15.5) % Plt Count (150-450) k/uL Monocytes # (Manual) (0-1.0) k/uL PT (9.0-12.0) sec INR (<1.2) BUN (9-20) mg/dL Creatinine (0.66-1.25) mg/dL Glucose (74-99) mg/dL Plasma Lactic Acid Nitesh 2.5 H* (0.7-2.0) mmol/L Magnesium (1.6-2.3) mg/dL Total Bilirubin (0.2-1.3) mg/dL AST (17-59) U/L Alkaline Phosphatase (38-126) U/L Albumin (3.5-5.0) g/dL Crossmatch Thrombosis Risk Factor Assmnt - Choose All That Apply Any of the Below Risk Factors Present?: Yes Each Risk Factor Represents 2 Points: Malignancy Each Risk Factor Represents 3 Points: Age 75 years or older Thrombosis Risk Factor Assessment Total Risk Factor Score: 5 Thrombosis Risk Factor Assessment Level: High Risk Assessment and Plan Assessment: 1. Anemia secondary to GI bleed with coffee ground emesis. Will consult GI services. Patient has received one of 2 units packed red blood cells for anemia. We'll continue to monitor hemoglobin and hematocrit. Upper and lower GI scopes completed in July 2019 2. History of liver cancer with metastatic disease. Patient continues to follow with Dr. Cote of [facility]. Patient's reports current patient is receiving chemotherapy by mouth at home. Oncology service is consulted 3. Elevated lactic acid initial 5.8 lactic acid has declined currently at 2.5. Will order UA and chest x-ray. 4.History of thrombocytopenia secondary to cancer chemotherapy. 5.. History of diabetes mellitus type 2. Metformin on hold, sliding scale insulin ordered. 6. History of essential hypertension. Home meds resumed, parameters will be set. 7. History of CVA 8. History of hearing disorder 10. History of prostate disorder 11. History of cholecystectomy 12. History of anxiety DVT prophylaxis SCDs. GI prophylaxis Protonix. GI and oncology consulted. Chest x-ray and UA ordered. Patient received 2 units PRBCs. Serial hemoglobins ordered. Time with Patient: Greater than 30 (I performed an examination of the patient and discussed their management with the Nurse Practitioner. I have reviewed the Nurse Practitioner's notes and agree with the documented findings and plan of care)
[2019-09-18 11:23] LABS: Amorphous Sediment,Urine Rare /hpf; Appearance,Urine Cloudy (Clear); Bacteria,Urine Rare /hpf; Bilirubin,Urine Negative (Negative); Blood,Urine Trace (Negative); Color,Urine Yellow; Glucose,Urine (UA) Negative (Negative); Ketones,Urine Negative (Negative); Leukocyte Esterase,Urine Negative (Negative); Mucus,Urine Rare /hpf; Nitrite,Urine Negative (Negative); PH, Urine 7.5 (5.0-8.0); Protein,Urine Negative (Negative); RBC,Urine 12 /hpf (0-5); Squamous Epithelial Cell,Urine <1 /hpf (0-4); WBC,Urine 6 /hpf (0-5)
[2019-09-18] MEDS: INSULIN ASPART (NovoLOG) 100 UNIT/ML VIAL SQ SCH ×3 (12:04→22:05)
[2019-09-18 12:05] LABS: Glucose,Whole Blood 99 mg/dL (75-99)
[2019-09-18 13:29] LABS: Anisocytosis Slight; HCT 26.4 % (39.0-53.0); HGB 9.1 gm/dL (13.0-17.5); MCH 31.4 pg (25.0-35.0); MCHC 34.5 g/dL (31.0-37.0); Mean Platelet Volume 9.3; RDW 17.9 % (11.5-15.5); WBC 8.7 k/uL (3.8-10.6)
[2019-09-18 13:32] LABS: Platelet Count 91 k/uL (150-450)
[2019-09-18 13:53] LABS: Band Neutrophils % 1 %; Lymphocytes # (M) 1.83 k/uL (1.0-4.8); Monocytes # (M) 3.05 k/uL (0-1.0); Myelocytes # (M) 0.09 k/uL (0); Myelocytes % 1 %; Neutrophils % (M) 43 %; Nucleated Red Blood Cells 0 /100 WBC (0-0); Total Cells Counted 200
[2019-09-18 13:54] LABS: Poikilocytosis (M) Present
[2019-09-18 13:59] LABS: Lactic Acid, Venous 2.4 mmol/L (0.7-2.0)
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
[2019-09-18 17:41] LABS: Glucose,Whole Blood 87 mg/dL (75-99)
[2019-09-18 20:22] LABS: Glucose,Whole Blood 89 mg/dL (75-99)
--- NOTE | 2019-09-18 21:47 | P.CONS ---
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 Of note history has been taking in discussion with the patient's and caregiver as well as on review of the electronic medical record due to the patient's current mentation. Patient's reports that he had 2 episodes of coffee-ground emesis prior to presentation to the hospital. No further episodes since that time. He has had 2 bowel movements since the vomiting described as brown in color with no black stool or blood per rectum noted. Previously the patient had been hospitalized in 07/2019 at which time there were concerns over melanotic stool. The patient had EGD significant only for gastritis and esophagitis on 07/21/2019 which was followed by colonoscopy on 07/22/2019 significant only for diverticulosis and polypectomy. The family is also concerned over altered mentation over the past 2 weeks. The patient had a mechanical fall 2 weeks ago and presented to the hospital for evaluation with computed tomography scan which was negative. Since that time however they feel mentation has been poor and he has not been at his baseline. Previously the patient had undergone chemotherapy for treatment of his HCC and followed up at [facility] with the oncology team as well as the hepatology team and Dr. Lizama. Laboratory evaluation on current admission significant for amylase 36, lipase 119, INR 1.4, WBC 6.4, hemoglobin 7.7, subsequently found to be 9.1 after transfusion, platelet count 87,000, total bilirubin 1.7, alkaline phosphatase 214, AST 87 and ALT 42. After being seen in the emergency department patient also had ammonia level drawn which was found to be elevated at 52. Review of Systems ROS unobtainable: due to mental status (Review of systems not able to be obtained from patient due to current mental status) Past Medical History Past Medical History: Blood Disorder, Cancer, Chest Pain / Angina, COPD, CVA/TIA, Diabetes Mellitus, GERD/Reflux, Hearing Disorder / Deafness, Hyperlipidemia, Hypertension, Liver Disease, Prostate Disorder, Sleep Apnea/CPA P/BIPAP Additional Past Medical History / Comment(s): DIFF HEARING R&L/HEART MURMUR/POOR CIRCULATION/ENLARGED HEART/BRADYCARDIA/PSORIASIS/EMPHYSEMA/FATTY LIVER. LOW PLATELETS. Liver Cancer 2017, psoriatic arthritis History of Any Multi-Drug Resistant Organisms: None Reported Past Surgical History: Cholecystectomy, Heart Catheterization, Hernia Repair Additional Past Surgical History / Comment(s): BRONCHOSCOPY/CATARACT REMOVAL L&R/EGD/COLONOSCOPY/RT KNEE ARTHROSCOPIC /BULLETS REMOVED FROM LT ARM AND CHEST 1969'S/CIRCUMCISION, LIVER BIOPSY Past Anesthesia/Blood Transfusion Reactions: No Reported Reaction Past Psychological History: Anxiety Smoking Status: Former smoker Past Alcohol Use History: None Reported Additional Past Alcohol Use History / Comment(s): QUIT DRINKING 30 YEARS AGO. Past Drug Use History: None Reported - Past Family History Father Family Medical History: Cancer Additional Family Medical History / Comment(s): PROSTATE CANCER Brother(s) Family Medical History: Cancer Additional Family Medical History / Comment(s): COLON CANCER. Son(s) Family Medical History: Liver Disease Medications and Allergies Home Medications Medication Instructions Recorded Confirmed Type Furosemide [Lasix] 20 mg PO DAILY 01/21/14 09/18/19 History HYDROcodone/APAP 10-325MG [[place] 2 tab PO Q8H PRN 01/21/14 09/18/19 History 10-325] Potassium Chloride ER [K-Dur 10] 10 meq PO DAILY 01/21/14 09/18/19 History metFORMIN HCL [Glucophage] 850 mg PO HS 01/21/14 09/18/19 History Cyclobenzaprine [Flexeril] 10 mg PO HS PRN 07/05/16 09/17/19 History Gabapentin [Neurontin] 800 mg PO HS 07/05/16 09/18/19 History Tamsulosin [Flomax] 0.4 mg PO HS 07/05/16 09/18/19 History Cholecalciferol [Vitamin D3 (25 5,000 unit PO DAILY 09/30/16 09/17/19 History Mcg = 1000 Iu)] Multivit-Min/FA/Lycopen/Lutein 1 tab PO DAILY 09/30/16 09/17/19 History [Centrum Silver Tablet] Carvedilol [Coreg] 6.25 mg PO BID 07/09/19 09/18/19 History Pravastatin Sodium [Pravachol] 40 mg PO HS 07/09/19 09/18/19 History Cabozantinib S-Malate [Cabometyx] 20 mg PO DAILY 08/06/19 09/17/19 History Infliximab-Dyyb [Inflectra] 700 mg IV Q180D 09/17/19 09/17/19 History ALPRAZolam [Xanax] 0.25 mg PO HS PRN 09/18/19 09/18/19 History Enalapril [Vasotec] 5 mg PO DAILY 09/18/19 09/18/19 History Allergies Allergy/AdvReac Type Severity Reaction Status Date / Time No Known Allergies Allergy Verified 09/17/19 21:26 Physical Exam Vitals: Vital Signs Temp Pulse Pulse Resp BP BP Pulse Ox 09/18/19 15:00 98.3 F 87 16 125/53 98 09/18/19 12:05 97.8 F 16 126/59 98 09/18/19 10:50 80 16 124/65 99 09/18/19 10:16 98.9 F 87 16 122/64 97 09/18/19 09:46 98.1 F 90 12 123/61 97 09/18/19 09:36 98.8 F 89 12 123/65 98 09/18/19 08:00 90 16 09/18/19 07:50 98.4 F 90 16 123/54 97 09/18/19 04:00 97.8 F 88 18 105/43 97 09/18/19 02:26 97.8 F 92 18 137/71 98 09/18/19 00:13 97.0 F L 99 18 137/64 98 09/18/19 00:00 97.5 F L 104 H 18 138/67 99 09/17/19 23:43 97.2 F L 104 H 18 134/70 98 09/17/19 23:33 97.5 F L 107 H 18 138/67 99 Intake and Output 09/18/19 09/18/19 09/18/19 06:59 14:59 22:59 Intake Total 310 310 Output Total 1999 Intake: Blood Product 310 310 Rc As-1 Unit 310 [id number] Rc As-1 Unit 310 [id number] Output: Urine 1999 Other: Voiding Method Indwelling Catheter Indwelling Catheter Indwelling Catheter Weight 84.5 kg On physical examination, patient appears comfortable in no apparent distress. HEAD: Normocephalic, atraumatic. EYES: No scleral icterus. No conjunctival injection. MOUTH: No lesions, tongue midline. NECK: Trachea midline, no gross abnormalities. CHEST: Clear to auscultation with no wheezing or rhonchi appreciated. HEART: S1-S2 appreciated with no murmurs appreciated. ABDOMEN: Soft, obese and nontender to palpation. Bowel sounds are positive. No organomegaly. No guarding or rigidity. EXTREMITIES: No pedal edema. SKIN: No rashes, no jaundice. NEUROLOGIC: Alert and responsive, oriented to person place or time. No focal deficits. Results CBC & Chem 7: 09/18/19 12:58 09/18/19 06:31 Labs: Abnormal Lab Results - Last 24 Hours (Table) 09/17/19 09/17/19 09/18/19 Range/Units 19:00 23:29 03:31 RBC (4.30-5.90) m/uL Hgb (13.0-17.5) gm/dL Hct (39.0-53.0) % RDW (11.5-15.5) % Plt Count (150-450) k/uL Monocytes # (Manual) (0-1.0) k/uL Myelocytes # (Manual) (0) k/uL BUN (9-20) mg/dL Creatinine (0.66-1.25) mg/dL Plasma Lactic Acid Nitesh 3.7 H* 3.2 H* (0.7-2.0) mmol/L Total Bilirubin (0.2-1.3) mg/dL AST (17-59) U/L Alkaline Phosphatase (38-126) U/L Ammonia (<30) umol/L Albumin (3.5-5.0) g/dL Urine Blood (Negative) Urine RBC (0-5) /hpf Urine WBC (0-5) /hpf Amorphous Sediment (None) /hpf Urine Bacteria (None) /hpf Urine Mucus (None) /hpf Crossmatch See Detail 09/18/19 09/18/19 09/18/19 Range/Units 06:31 06:31 08:02 RBC 2.51 L (4.30-5.90) m/uL Hgb 7.7 L (13.0-17.5) gm/dL Hct 23.0 L (39.0-53.0) % RDW 18.4 H (11.5-15.5) % Plt Count 87 L (150-450) k/uL Monocytes # (Manual) 1.86 H (0-1.0) k/uL Myelocytes # (Manual) (0) k/uL BUN 42 H (9-20) mg/dL Creatinine 0.55 L (0.66-1.25) mg/dL Plasma Lactic Acid Nitesh 2.5 H* (0.7-2.0) mmol/L Total Bilirubin 1.7 H (0.2-1.3) mg/dL AST 87 H (17-59) U/L Alkaline Phosphatase 214 H (38-126) U/L Ammonia (<30) umol/L Albumin 3.0 L (3.5-5.0) g/dL Urine Blood (Negative) Urine RBC (0-5) /hpf Urine WBC (0-5) /hpf Amorphous Sediment (None) /hpf Urine Bacteria (None) /hpf Urine Mucus (None) /hpf Crossmatch 09/18/19 09/18/19 09/18/19 Range/Units 10:57 12:57 12:58 RBC 2.90 L (4.30-5.90) m/uL Hgb 9.1 L (13.0-17.5) gm/dL Hct 26.4 L (39.0-53.0) % RDW 17.9 H (11.5-15.5) % Plt Count 91 L (150-450) k/uL Monocytes # (Manual) 3.05 H (0-1.0) k/uL Myelocytes # (Manual) 0.09 H (0) k/uL BUN (9-20) mg/dL Creatinine (0.66-1.25) mg/dL Plasma Lactic Acid Nitesh 2.4 H* (0.7-2.0) mmol/L Total Bilirubin (0.2-1.3) mg/dL AST (17-59) U/L Alkaline Phosphatase (38-126) U/L Ammonia 51 H (<30) umol/L Albumin (3.5-5.0) g/dL Urine Blood Trace H (Negative) Urine RBC 12 H (0-5) /hpf Urine WBC 6 H (0-5) /hpf Amorphous Sediment Rare H (None) /hpf Urine Bacteria Rare H (None) /hpf Urine Mucus Rare H (None) /hpf Crossmatch Chest x-ray: report reviewed (Chronic parenchymal changes in cardiomegaly on chest x-ray.) Assessment and Plan (1) Hepatic encephalopathy Narrative/Plan: 79-year-old male with multiple medical comorbidities including hepatocellular carcinoma believed to have occurred in the setting of Santos cirrhosis treated with chemotherapy at [facility] presented to the hospital due to complaints of 2 episodes of coffee-ground emesis. Previously the patient had been seen in 07/2019 for concerns over melena at which time EGD colonoscopy were performed and significant for esophagitis, gastritis, diverticulosis and polypectomy with no signs of active bleeding at that time. On current presentation patient had 2 episodes of coffee-ground emesis with hemoglobin of 7.7 on presentation. No further episodes of coffee-ground emesis or melanotic stool reported, with the patient's stating he is had 2 brown bowel movements. Hemoglobin improved appropriately at 9.1 status post transfusion. There are also concerns over patient's mentation over the past 2 weeks, although it is commented that the patient has not been himself, with trouble sleeping as well as problems with altered mental status and disorientation. Originally this occurred after a mechanical fall for which the patient was taken to the hospital and had a computed tomography scan of the head which was negative for any intracranial pathology. Ammonia was admitted after the patient was seen in the emergency department and was found to be elevated at 51 with suspicion for possible hepatic encephalopathy in the setting of cirrhosis. Current Visit: Yes Status: Acute Code(s): K72.90 - HEPATIC FAILURE, UNSPECIFIED WITHOUT COMA SNOMED Code(s): 03890551 (2) Anemia associated with acute blood loss Current Visit: Yes Status: Acute Code(s): D62 - ACUTE POSTHEMORRHAGIC ANEMIA SNOMED Code(s): 779795520 (3) GI bleed Current Visit: Yes Status: Acute Code(s): K92.2 - GASTROINTESTINAL HEMORRHAGE, UNSPECIFIED SNOMED Code(s): 86117841 (4) Liver cancer Current Visit: Yes Status: Chronic Priority: Medium Code(s): C22.9 - MALIG NEOPLASM OF LIVER, NOT SPECIFIED PRIMARY OR SEC SNOMED Code(s): 77475155 Plan: Supportive care Okay for clear liquid diet Continue to monitor hemoglobin and hematocrit and transfuse as needed Protonix increased to IV twice daily Continue to monitor for signs or symptoms of GI bleed Extensive discussion with the patient's and decision maker with this time would like conservative management of the patient as well as consultation to palliative care for further discussion on future management, we'll continue to monitor hemoglobin and for signs and symptoms of GI bleed with consideration for further endoscopic evaluation if the patient has further evidence of GI bleeding and based on the family's wishes for the patient's future management Lactulose 3 times a day added in the setting of altered mental status and elevated ammonia, titrate medication for 2-3 bowel movements daily Ammonia ordered for tomorrow Minimize sedative medications such as narcotics in anxiolytics due to sedative effects cirrhotic patient Sodium restricted diet Thank you for allowing us to participate in the care of the patient we will continue to follow
[2019-09-18 22:02] LABS: Anisocytosis Slight; HCT 25.1 % (39.0-53.0); MCH 32.2 pg (25.0-35.0); MCHC 35.9 g/dL (31.0-37.0); MCV 89.6 fL (80.0-100.0); Mean Platelet Volume 11.9; Poikilocytosis Slight; RDW 18.1 % (11.5-15.5); WBC 9.6 k/uL (3.8-10.6)
[2019-09-18] MEDS: LACTULOSE 20 GM/30 ML CUP PO SCH (22:05)
[2019-09-18 22:12] LABS: Platelet Count 72 k/uL (150-450)
[2019-09-19] MEDS: AMPICILLIN-SULBACTAM 3 GM in SODIUM CHLORIDE 0.9% 100 ML IVPB SCH ×5 (00:05→23:41)
--- NOTE | 2019-09-19 00:29 | P.CONS ---
History of Present Illness - Reason for Consult Consult date: 09/18/19 LACTIC ACIDOSIS Requesting physician: Sammi Pickering - Chief Complaint coffee ground emesis x 1 day - History of Present Illness Patient is a 79-year male past medical history significant for hepatocellular carcinoma secondary to Santos cirrhosis for the patient currently on oral chemotherapy patient was brought into the ER at [facility] yesterday after apparently the patient did have 2 episodes of coffee- ground emesis at home patient also seem to be getting more weak lethargic and apparently did have a fall few days ago patient also noticed to have a congested cough but is not able to bring up any sputum no diarrhea has been present the patient is constipated bowel movement for the last 1 week no high-grade fever or any chills with the symptom the patient was evaluated by the ER physician on arrival to the ER the patient has been afebrile and has been afebrile since admission patient did have a normal white count of 6.8 patient on presentation to hospital did have elevated lactic acid of 5.8 this subsequently came down to with the fluid boluses and he had received 2 units of blood patient had did have a chest x-ray completed which shows chronic parenchymal changes new left mid to lower lung interstitial aureola edema or infiltrate present with concern for possible infectious and lactic acidosis infectious was consulted for further management and recommendation most information has been obtained from the family as the patient is very lethargic and cannot provide any history Review of Systems Positive point has been mentioned in HPI complete review could not be obtained because of underlying mental status Past Medical History Past Medical History: Blood Disorder, Cancer, Chest Pain / Angina, COPD, CVA/TIA, Diabetes Mellitus, GERD/Reflux, Hearing Disorder / Deafness, Hyperlipidemia, Hypertension, Liver Disease, Prostate Disorder, Sleep Apnea/CPAP/BIPAP Additional Past Medical History / Comment(s): DIFF HEARING R&L/HEART MURMUR/POOR CIRCULATION/ENLARGED HEART/BRADYCARDIA/PSORIASIS/EMPHYSEMA/FATTY LIVER. LOW PLATELETS. Liver Cancer 2017, psoriatic arthritis History of Any Multi-Drug Resistant Organisms: None Reported Past Surgical History: Cholecystectomy, Heart Catheterization, Hernia Repair Additional Past Surgical History / Comment(s): BRONCHOSCOPY/CATARACT REMOVAL L&R/EGD/COLONOSCOPY/RT KNEE ARTHROSCOPIC /BULLETS REMOVED FROM LT ARM AND CHEST /CIRCUMCISION, LIVER BIOPSY Past Anesthesia/Blood Transfusion Reactions: No Reported Reaction Past Psychological History: Anxiety Smoking Status: Former smoker Past Alcohol Use History: None Reported Additional Past Alcohol Use History / Comment(s): QUIT DRINKING 30 YEARS AGO. Past Drug Use History: None Reported - Past Family History Father Family Medical History: Cancer Additional Family Medical History / Comment(s): PROSTATE CANCER Brother(s) Family Medical History: Cancer Additional Family Medical History / Comment(s): COLON CANCER. Son(s) Family Medical History: Liver Disease Medications and Allergies Home Medications Medication Instructions Recorded Confirmed Type Furosemide [Lasix] 20 mg PO DAILY 01/21/14 09/18/19 History HYDROcodone/APAP 10-325MG [[place] 2 tab PO Q8H PRN 01/21/14 09/18/19 History 10-325] Potassium Chloride ER [K-Dur 10] 10 meq PO DAILY 01/21/14 09/18/19 History metFORMIN HCL [Glucophage] 850 mg PO HS 01/21/14 09/18/19 History Cyclobenzaprine [Flexeril] 10 mg PO HS PRN 07/05/16 09/17/19 History Gabapentin [Neurontin] 800 mg PO HS 07/05/16 09/18/19 History Tamsulosin [Flomax] 0.4 mg PO HS 07/05/16 09/18/19 History Cholecalciferol [Vitamin D3 (25 5,000 unit PO DAILY 09/30/16 09/17/19 History Mcg = 1000 Iu)] Multivit-Min/FA/Lycopen/Lutein 1 tab PO DAILY 09/30/16 09/17/19 History [Centrum Silver Tablet] Carvedilol [Coreg] 6.25 mg PO BID 07/09/19 09/18/19 History Pravastatin Sodium [Pravachol] 40 mg PO HS 07/09/19 09/18/19 History Cabozantinib S-Malate [Cabometyx] 20 mg PO DAILY 08/06/19 09/17/19 History Infliximab-Dyyb [Inflectra] 700 mg IV Q180D 09/17/19 09/17/19 History ALPRAZolam [Xanax] 0.25 mg PO HS PRN 09/18/19 09/18/19 History Enalapril [Vasotec] 5 mg PO DAILY 09/18/19 09/18/19 History Allergies Allergy/AdvReac Type Severity Reaction Status Date / Time No Known Allergies Allergy Verified 09/17/19 21:26 Physical Exam Vitals: Vital Signs Temp Pulse Pulse Resp BP BP Pulse Ox 09/18/19 15:00 98.3 F 87 16 125/53 98 09/18/19 12:05 97.8 F 16 126/59 98 09/18/19 10:50 80 16 124/65 99 09/18/19 10:16 98.9 F 87 16 122/64 97 09/18/19 09:46 98.1 F 90 12 123/61 97 09/18/19 09:36 98.8 F 89 12 123/65 98 09/18/19 08:00 90 16 09/18/19 07:50 98.4 F 90 16 123/54 97 09/18/19 04:00 97.8 F 88 18 105/43 97 09/18/19 02:26 97.8 F 92 18 137/71 98 09/18/19 00:13 97.0 F L 99 18 137/64 98 09/18/19 00:00 97.5 F L 104 H 18 138/67 99 Intake and Output 09/18/19 09/18/19 09/19/19 14:59 22:59 06:59 Intake Total 310 Output Total 400 Balance -90 Intake: Blood Product 310 Rc As-1 Unit 310 [id number] Output: Urine 400 Other: Voiding Method Indwelling Catheter Indwelling Catheter GENERAL DESCRIPTION: Elderly male lying in bed, no distress. No tachypnea or accessory muscle of respiration use. HEENT: Shows Pallor , no scleral icterus. Oral mucous membrane is dry. NECK: Trachea central, no thyromegaly. LUNGS: Unlabored breathing. Decreased breath sounds at bases. No wheeze or crackle. HEART: S1, S2, regular rate and rhythm. ABDOMEN: Soft, no tenderness , guarding or rigidity EXTREMITIES: No edema of feet. SKIN: No rash, no masses palpable. NEUROLOGICAL: The patient is sleepy lethargic orientation could not be determined Results CBC & Chem 7: 09/18/19 21:17 09/18/19 06:31 Labs: Abnormal Lab Results - Last 24 Hours (Table) 09/17/19 09/17/19 09/18/19 Range/Units 19:00 23:29 03:31 RBC (4.30-5.90) m/uL Hgb (13.0-17.5) gm/dL Hct (39.0-53.0) % RDW (11.5-15.5) % Plt Count (150-450) k/uL Monocytes # (Manual) (0-1.0) k/uL Myelocytes # (Manual) (0) k/uL BUN (9-20) mg/dL Creatinine (0.66-1.25) mg/dL Plasma Lactic Acid Nitesh 3.7 H* 3.2 H* (0.7-2.0) mmol/L Total Bilirubin (0.2-1.3) mg/dL AST (17-59) U/L Alkaline Phosphatase (38-126) U/L Ammonia (<30) umol/L Albumin (3.5-5.0) g/dL Urine Blood (Negative) Urine RBC (0-5) /hpf Urine WBC (0-5) /hpf Amorphous Sediment (None) /hpf Urine Bacteria (None) /hpf Urine Mucus (None) /hpf Crossmatch See Detail 09/18/19 09/18/19 09/18/19 Range/Units 06:31 06:31 08:02 RBC 2.51 L (4.30-5.90) m/uL Hgb 7.7 L (13.0-17.5) gm/dL Hct 23.0 L (39.0-53.0) % RDW 18.4 H (11.5-15.5) % Plt Count 87 L (150-450) k/uL Monocytes # (Manual) 1.86 H (0-1.0) k/uL Myelocytes # (Manual) (0) k/uL BUN 42 H (9-20) mg/dL Creatinine 0.55 L (0.66-1.25) mg/dL Plasma Lactic Acid Nitesh 2.5 H* (0.7-2.0) mmol/L Total Bilirubin 1.7 H (0.2-1.3) mg/dL AST 87 H (17-59) U/L Alkaline Phosphatase 214 H (38-126) U/L Ammonia (<30) umol/L Albumin 3.0 L (3.5-5.0) g/dL Urine Blood (Negative) Urine RBC (0-5) /hpf Urine WBC (0-5) /hpf Amorphous Sediment (None) /hpf Urine Bacteria (None) /hpf Urine Mucus (None) /hpf Crossmatch 09/18/19 09/18/19 09/18/19 Range/Units 10:57 12:57 12:58 RBC 2.90 L (4.30-5.90) m/uL Hgb 9.1 L (13.0-17.5) gm/dL Hct 26.4 L (39.0-53.0) % RDW 17.9 H (11.5-15.5) % Plt Count 91 L (150-450) k/uL Monocytes # (Manual) 3.05 H (0-1.0) k/uL Myelocytes # (Manual) 0.09 H (0) k/uL BUN (9-20) mg/dL Creatinine (0.66-1.25) mg/dL Plasma Lactic Acid Nitesh 2.4 H* (0.7-2.0) mmol/L Total Bilirubin (0.2-1.3) mg/dL AST (17-59) U/L Alkaline Phosphatase (38-126) U/L Ammonia 51 H (<30) umol/L Albumin (3.5-5.0) g/dL Urine Blood Trace H (Negative) Urine RBC 12 H (0-5) /hpf Urine WBC 6 H (0-5) /hpf Amorphous Sediment Rare H (None) /hpf Urine Bacteria Rare H (None) /hpf Urine Mucus Rare H (None) /hpf Crossmatch 09/18/19 Range/Units 21:17 RBC 2.80 L (4.30-5.90) m/uL Hgb 9.0 L (13.0-17.5) gm/dL Hct 25.1 L (39.0-53.0) % RDW 18.1 H (11.5-15.5) % Plt Count 72 L (150-450) k/uL Monocytes # (Manual) (0-1.0) k/uL Myelocytes # (Manual) (0) k/uL BUN (9-20) mg/dL Creatinine (0.66-1.25) mg/dL Plasma Lactic Acid Nitesh (0.7-2.0) mmol/L Total Bilirubin (0.2-1.3) mg/dL AST (17-59) U/L Alkaline Phosphatase (38-126) U/L Ammonia (<30) umol/L Albumin (3.5-5.0) g/dL Urine Blood (Negative) Urine RBC (0-5) /hpf Urine WBC (0-5) /hpf Amorphous Sediment (None) /hpf Urine Bacteria (None) /hpf Urine Mucus (None) /hpf Crossmatch Assessment and Plan Assessment: Patient admitted hospital with coffee-ground emesis and weakness in this patient who did have significant elevated lactic acid of 5.8 with concern for possible dehydration and prerenal azotemia underlying infectious or not likely but not entirely excluded either in view of this patient has recent history of emesis and now with development of left-sided lung infiltrate with a question of possible aspiration pneumonitis not entirely excluded currently no other obvious source of infection UA has not been significantly positive and no evidence of any cellulitis or joint swelling (1) Lactic acidosis Current Visit: Yes Status: Acute Code(s): E87.2 - ACIDOSIS SNOMED Code(s): 61193531 (2) Aspiration pneumonitis Current Visit: Yes Status: Acute Code(s): J69.0 - PNEUMONITIS DUE TO INHALATION OF FOOD AND VOMIT SNOMED Code(s): 731918424 Plan: 1-we will obtain blood cultures 2-Also obtain CRP and procalcitonin level 3-empirically add Unasyn 3 g every 6 hour 4-gentle IV fluid We will follow on clinical condition and cultures to further adjust medication if needed Thank you for this consultation we will follow the patient along with you Time with Patient: Greater than 30
[2019-09-19] MEDS: LORazepam 2 MG/ML INJ IV PRN ×2 (01:34→10:59)
[2019-09-19] MEDS: MORPHINE SULFATE 2 MG/ML SYRINGE IVP PRN ×5 (04:44→23:50)
[2019-09-19 05:59] LABS: Glucose,Whole Blood 101 mg/dL (75-99)
[2019-09-19 06:02] LABS: Anisocytosis Slight; HCT 25.5 % (39.0-53.0); HGB 8.8 gm/dL (13.0-17.5); MCH 31.4 pg (25.0-35.0); MCHC 34.3 g/dL (31.0-37.0); MCV 91.5 fL (80.0-100.0); Mean Platelet Volume 9.8; Poikilocytosis Slight; RBC 2.79 m/uL (4.30-5.90); RDW 18.3 % (11.5-15.5); WBC 6.5 k/uL (3.8-10.6)
[2019-09-19] MEDS: INSULIN ASPART (NovoLOG) 100 UNIT/ML VIAL SQ SCH ×4 (06:03→21:20)
[2019-09-19] MEDS: CARVEDILOL 6.25 MG TAB PO SCH ×2 (06:03→17:27)
[2019-09-19 06:10] LABS: Platelet Count 77 k/uL (150-450)
[2019-09-19 06:20] LABS: ALT 85 U/L (4-49); AST 209 U/L (17-59); African American GFR (CKD) >90 (>60 ml/min/1.73 sqM); Albumin 3.3 g/dL (3.5-5.0); Alkaline Phosphatase 229 U/L (38-126); Blood Urea Nitrogen 26 mg/dL (9-20); C Reactive Protein 27.5 mg/L (<10.0); Calcium 8.5 mg/dL (8.4-10.2); Carbon Dioxide 24 mmol/L (22-30); Glucose 102 mg/dL (74-99); Non-African American GFR(CKD) >90 (>60 ml/min/1.73 sqM); Total Protein 7.2 g/dL (6.3-8.2)
[2019-09-19 06:31] LABS: Eosinophils # (M) 0.13 k/uL (0-0.7); Lymphocytes # (M) 1.24 k/uL (1.0-4.8); Monocytes # (M) 2.21 k/uL (0-1.0); Neutrophils # (M) 2.93 k/uL (1.3-7.7); Neutrophils % (M) 45 %; Nucleated Red Blood Cells 0 /100 WBC (0-0); Total Cells Counted 100
[2019-09-19 06:37] LABS: Anion Gap 10 mmol/L; Chloride 108 mmol/L (98-107); Potassium 4.4 mmol/L (3.5-5.1); Sodium 142 mmol/L (137-145)
[2019-09-19] MEDS ORDERED: PANTOPRAZOLE 40 MG/10 ML VIAL IVP SCH (09:00)
[2019-09-19] MEDS: PANTOPRAZOLE 40 MG/10 ML VIAL IVP SCH ×2 (09:44→19:55)
[2019-09-19] MEDS: FUROSEMIDE 20 MG TAB PO SCH (09:45)
[2019-09-19] MEDS: CHOLECALCIFEROL 1,000 UNIT TAB PO SCH (09:45)
[2019-09-19] MEDS: POTASSIUM CHLORIDE ER 10 MEQ TAB.ER.PRT PO SCH (09:46)
[2019-09-19] MEDS: MULTIVITAMINS, THERA 1 EACH TAB PO SCH (09:46)
[2019-09-19] MEDS: LACTULOSE 20 GM/30 ML CUP PO SCH (09:46)
--- NOTE | 2019-09-19 10:08 | P.PN ---
Subjective Progress Note Date: 09/19/19 Patient is 79-year-old male seen today on 09/18/2019 in the emergency room. Patient was admitted on 09/17/2019 his noticed some coffee-ground emesis on 09/17/2019 with increasing weakness. Patient has a history of GI bleed and was seen 07/2019 at [facility] where upper and lower GI scopes were performed revealing diverticulosis. Upon coming to the ER patient was seen to have a lactic acid of 3.2, hemoglobin 7.7, hematocrit 23.0, WBC 6.4. Patient is currently receiving one of 2 units of PRBCs in emergency department. Patient was given Valenzuela catheter in emergency department which resulted in 1400 mL of urine output. Patient's states the patient continues to receive oral chemo at home for history of liver CA, patient follows with Dr. Castro at [facility]. Patient denies shortness of breath, denies chest pain, denies recent illness or fevers. Patient stated he did not have a bowel movement 1 week in which gave stool softener that resulted in bowel movement. Patient's stated that he fell on 09/09/2019 which resulted in patient hitting his head. Patient was brought to the emergency room where a head CT and shoulder x-ray were performed. Head CT revealed no acute intracranial abnormality. Patient placed in patient has become increasingly restless and unable to sleep for the past several weeks, patient also is beginning to have bouts of confusion at home. Per patient was receiving by mouth Xanax 0.25 mg at bedtime for sleep disturbances. 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 Patient is currently resting comfortably in bed, patient wakes up for a stress but does not follow many commands. Patient's lungs are clear to auscultation, bowel sounds are clear to auscultation in all quadrants. On 09/19/2019 patient seen restless in bed with at bedside. Per patient did sleep for several hours throughout the night. Patient confusion is still present, alert and oriented 1. Patient unable to verbalize any symptoms. Patient was seen by GI team, GI increased Protonix to twice a day, plan is to administer lactulose. Per patient is unable to take medications by mouth at this time, will attempt to order lactulose rectally. GI team recommended minimal sedative medications including narcotics, sodium 60 diet, will consider further endoscopic evaluation if patient has further evidence of GI bleeding. Patient's verbalized wishes to discuss palliative care. Patient's ammonia level 31 today, lactic acid 1.8, hemoglobin 8.8, hematocrit 25.5 WBC 6.5. Inf ectious disease following patient, oncology service is consulted. Bone cultures were completed per infectious disease, patient is receiving Unasyn 3 g every 6 hours with conservative IV fluid therapy. Objective - Vital Signs Vital signs: Vital Signs Temp 98.2 F 09/19/19 08:00 Pulse 95 09/19/19 08:00 Resp 20 09/19/19 08:00 BP 133/84 09/19/19 08:00 Pulse Ox 96 09/19/19 08:00 Intake & Output 09/18/19 09/19/19 09/19/19 18:59 06:59 18:59 Intake Total 310 Output Total 400 750 Balance -90 -750 Weight 84.5 kg Intake: Blood Product 310 Rc As-1 Unit 310 [id number] Output: Urine 400 750 Other: Voiding Method Indwelling Catheter Indwelling Catheter - Exam Head normocephalic Neck supple Lungs clear to auscultation bilaterally no wheezing or crackles Heart regular rate and rhythm S1-S2, no rub or gallop Abdomen is soft nontender nondistended positive bowel sounds no hepatosplenomegaly Extremities no edema Neuro alert and orientated to 1 - Labs CBC & Chem 7: 09/19/19 05:36 09/19/19 05:36 Labs: Abnormal Lab Results - Last 24 Hours (Table) 09/17/19 09/18/19 09/18/19 Range/Units 19:00 10:57 12:57 RBC (4.30-5.90) m/uL Hgb (13.0-17.5) gm/dL Hct (39.0-53.0) % RDW (11.5-15.5) % Plt Count (150-450) k/uL Monocytes # (Manual) (0-1.0) k/uL Myelocytes # (Manual) (0) k/uL Chloride (98-107) mmol/L BUN (9-20) mg/dL Creatinine (0.66-1.25) mg/dL Glucose (74-99) mg/dL POC Glucose (mg/dL) (75-99) mg/dL Plasma Lactic Acid Nitesh 2.4 H* (0.7-2.0) mmol/L Total Bilirubin (0.2-1.3) mg/dL AST (17-59) U/L ALT (4-49) U/L Alkaline Phosphatase (38-126) U/L Ammonia 51 H (<30) umol/L C-Reactive Protein (<10.0) mg/L Albumin (3.5-5.0) g/dL Urine Blood Trace H (Negative) Urine RBC 12 H (0-5) /hpf Urine WBC 6 H (0-5) /hpf Amorphous Sediment Rare H (None) /hpf Urine Bacteria Rare H (None) /hpf Urine Mucus Rare H (None) /hpf Crossmatch See Detail 09/18/19 09/18/19 09/19/19 Range/Units 12:58 21:17 05:36 RBC 2.90 L 2.80 L (4.30-5.90) m/uL Hgb 9.1 L 9.0 L (13.0-17.5) gm/dL Hct 26.4 L 25.1 L (39.0-53.0) % RDW 17.9 H 18.1 H (11.5-15.5) % Plt Count 91 L 72 L (150-450) k/uL Monocytes # (Manual) 3.05 H (0-1.0) k/uL Myelocytes # (Manual) 0.09 H (0) k/uL Chloride 108 H (98-107) mmol/L BUN 26 H (9-20) mg/dL Creatinine 0.64 L (0.66-1.25) mg/dL Glucose 102 H (74-99) mg/dL POC Glucose (mg/dL) (75-99) mg/dL Plasma Lactic Acid Nitesh (0.7-2.0) mmol/L Total Bilirubin 2.0 H (0.2-1.3) mg/dL AST 209 H (17-59) U/L ALT 85 H (4-49) U/L Alkaline Phosphatase 229 H (38-126) U/L Ammonia (<30) umol/L C-Reactive Protein 27.5 H (<10.0) mg/L Albumin 3.3 L (3.5-5.0) g/dL Urine Blood (Negative) Urine RBC (0-5) /hpf Urine WBC (0-5) /hpf Amorphous Sediment (None) /hpf Urine Bacteria (None) /hpf Urine Mucus (None) /hpf Crossmatch 09/19/19 09/19/19 09/19/19 Range/Units 05:36 05:36 05:56 RBC 2.79 L (4.30-5.90) m/uL Hgb 8.8 L (13.0-17.5) gm/dL Hct 25.5 L (39.0-53.0) % RDW 18.3 H (11.5-15.5) % Plt Count 77 L (150-450) k/uL Monocytes # (Manual) 2.21 H (0-1.0) k/uL Myelocytes # (Manual) (0) k/uL Chloride (98-107) mmol/L BUN (9-20) mg/dL Creatinine (0.66-1.25) mg/dL Glucose (74-99) mg/dL POC Glucose (mg/dL) 101 H (75-99) mg/dL Plasma Lactic Acid Nitesh (0.7-2.0) mmol/L Total Bilirubin (0.2-1.3) mg/dL AST (17-59) U/L ALT (4-49) U/L Alkaline Phosphatase (38-126) U/L Ammonia 31 H (<30) umol/L C-Reactive Protein (<10.0) mg/L Albumin (3.5-5.0) g/dL Urine Blood (Negative) Urine RBC (0-5) /hpf Urine WBC (0-5) /hpf Amorphous Sediment (None) /hpf Urine Bacteria (None) /hpf Urine Mucus (None) /hpf Crossmatch Assessment and Plan Assessment: 1. Anemia secondary to GI bleed with coffee ground emesis. Will consult GI services. Patient has received one of 2 units packed red blood cells for anemia. We'll continue to monitor hemoglobin and hematocrit. Upper and lower GI scopes completed in July 2019. Hemoglobin 8.8 and 09/19/2019. No evidence of GI bleed at this time. 2. History of liver cancer with metastatic disease. Patient continues to follow with Dr. Cote of [facility]. Patient's reports current patient is receiving chemotherapy by mouth at home. Oncology service is consulted. 3. Elevated lactic acid initial 5.8 lactic acid has declined currently at 1.8. UA and chest x-ray negative for any signs of infection or acute process. Infectious disease following Unasyn 3 g every 6 hours ordered. Blood cultures ordered 4. History of thrombocytopenia secondary to cancer chemotherapy. 5.. History of diabetes mellitus type 2. Metformin on hold, sliding scale insulin ordered. 6. History of essential hypertension. Home meds resumed, parameters will be set. 7. History of CVA 8. History of hearing disorder 10. History of prostate disorder 11. History of cholecystectomy 12. History of anxiety 13. Hepatic encephalopathy secondary to hepatocellular carcinoma and Slightly elevated ammonia at 31. Lactulose ordered, will attempt to ordered rectally as patient is not taking any medication by mouth at this time. Oncology and GI following DVT prophylaxis SCDs. GI prophylaxis Protonix. GI and oncology consulted. Infectious disease following. Awaiting results of blood cultures. I performed an examination of the patient and discussed their management with the Nurse Practitioner. I have reviewed the Nurse Practitioner's notes and agree with the documented findings and plan of care
[2019-09-19 11:14] VITALS: BMI 25.2
[2019-09-19 12:01] LABS: Glucose,Whole Blood 111 mg/dL (75-99)
[2019-09-19] MEDS: LACTULOSE 200 GM/300 ML (FROM 1/2 GAL JUG) RECTAL SCH ×3 (14:05→23:50)
--- NOTE | 2019-09-19 14:14 | PN ---
PROGRESS NOTE DATE OF SERVICE: 09/19/2019 REASON FOR FOLLOWUP: Possible aspiration pneumonitis. INTERVAL HISTORY: The patient is currently afebrile. The patient remains to be lethargic and sleepy. Oral intake remains to be poor. No further vomiting or hematemesis has been reported or any diarrhea. Patient was lethargic, It was very difficult to obtain any history. Most of the information was provided by the family. PHYSICAL EXAMINATION: Blood pressure is 135/62 with a pulse of 84, temperature 98.4. He is 98% on room air. General description is an elderly male, lying in bed in no distress. RESPIRATORY SYSTEM: Unlabored breathing, clear to auscultation anteriorly. HEART: S1, S2. Regular rate and rhythm. ABDOMEN: Soft, no tenderness. EXTREMITIES: No edema of the feet. LABS: Hemoglobin is 8.1, white count of 6.5, creatinine 0.64 and enzymes mildly elevated, CRP came back at 7.2, Procrit is slightly elevated at 0.24. DIAGNOSTIC IMPRESSION AND PLAN: Patient with elevated lactic acid, possibly multifactorial, possible dehydration. This patient did have hematemesis and possible aspiration pneumonitis on the basis of abnormal x-ray. Patient is currently covered with Unasyn which will will continued and will monitor his clinical course closely. Family at the bedside, their questions were answered. MMODL / IJN: [id number] /
[2019-09-19 17:04] LABS: Glucose,Whole Blood 107 mg/dL (75-99)
[2019-09-19] MEDS: GABAPENTIN 400 MG CAP PO SCH (20:04)
[2019-09-19] MEDS: TAMSULOSIN 0.4 MG CAP.ER.24H PO SCH (20:05)
--- NOTE | 2019-09-19 20:09 | P.CONS ---
History of Present Illness - Reason for Consult Consult date: 09/19/19 HCC, family asking about pallliative care Requesting physician: Sammi Pickering - Chief Complaint hematemesis - History of Present Illness Since patient's admission back in July, at which time he had gastrointestinal bleeding, he has resumed treatment for hepatocellular carcinoma with cabometyx, it was on hold in Jul for dental procedure (see consult for details of malignancy up to that point). Patient recovered from that situation, had his dental procedure and was resumed on cabometyx by his primary oncologist, Dr. Baker. Patient's has noted a progressive decline in the patient since [place], he started having episodes of hematemesis which is what promp tj her to bring him to the hospital. Patient is nonverbal, agitated and appears to be uncomfortable. Patient's is a nurse, she feels that the patient's progressive decline is not going to be a reversible situation. She is asking about palliative care. Review of Systems review of systems unable to obtain due to mental status, at bedside providing information Past Medical History Past Medical History: Blood Disorder, Cancer, Chest Pain / Angina, COPD, CVA/TIA, Diabetes Mellitus, GERD/Reflux, Hearing Disorder / Deafness, Hyperlipidemia, Hypertension, Liver Disease, Prostate Disorder, Sleep Apnea/CPAP/BIPAP Additional Past Medical History / Comment(s): DIFF HEARING R&L/HEART MURMUR/POOR CIRCULATION/ENLARGED HEART/BRADYCARDIA/PSORIASIS/EMPHYSEMA/FATTY LIVER. LOW PLATELETS. Liver Cancer 2017, psoriatic arthritis History of Any Multi-Drug Resistant Organisms: None Reported Past Surgical History: Cholecystectomy, Heart Catheterization, Hernia Repair Additional Past Surgical History / Comment(s): BRONCHOSCOPY/CATARACT REMOVAL L&R/EGD/COLONOSCOPY/RT KNEE ARTHROSCOPIC /BULLETS REMOVED FROM LT ARM AND CHEST 1970'S/CIRCUMCISION, LIVER BIOPSY Past Anesthesia/Blood Transfusion Reactions: No Reported Reaction Past Psychological History: Anxiety Smoking Status: Former smoker Past Alcohol Use History: None Reported Additional Past Alcohol Use History / Comment(s): QUIT DRINKING 30 YEARS AGO. Past Drug Use History: None Reported - Past Family History Father Family Medical History: Cancer Additional Family Medical History / Comment(s): PROSTATE CANCER Brother(s) Family Medical History: Cancer Additional Family Medical History / Comment(s): COLON CANCER. Son(s) Family Medical History: Liver Disease Medications and Allergies Home Medications Medication Instructions Recorded Confirmed Type Furosemide [Lasix] 20 mg PO DAILY 01/21/14 09/18/19 History HYDROcodone/APAP 10-325MG [Friedens 2 tab PO Q8H PRN 01/21/14 09/18/19 History 10-325] Potassium Chloride ER [K-Dur 10] 10 meq PO DAILY 01/21/14 09/18/19 History metFORMIN HCL [Glucophage] 850 mg PO HS 01/21/14 09/18/19 History Cyclobenzaprine [Flexeril] 10 mg PO HS PRN 07/05/16 09/17/19 History Gabapentin [Neurontin] 800 mg PO HS 07/05/16 09/18/19 History Tamsulosin [Flomax] 0.4 mg PO HS 07/05/16 09/18/19 History Cholecalciferol [Vitamin D3 (25 5,000 unit PO DAILY 09/30/16 09/17/19 History Mcg = 1000 Iu)] Multivit-Min/FA/Lycopen/Lutein 1 tab PO DAILY 09/30/16 09/17/19 History [Centrum Silver Tablet] Carvedilol [Coreg] 6.25 mg PO BID 07/09/19 09/18/19 History Pravastatin Sodium [Pravachol] 40 mg PO HS 07/09/19 09/18/19 History Cabozantinib S-Malate [Cabometyx] 20 mg PO DAILY 08/06/19 09/17/19 History Infliximab-Dyyb [Inflectra] 700 mg IV Q180D 09/17/19 09/17/19 History ALPRAZolam [Xanax] 0.25 mg PO HS PRN 09/18/19 09/18/19 History Enalapril [Vasotec] 5 mg PO DAILY 09/18/19 09/18/19 History Allergies Allergy/AdvReac Type Severity Reaction Status Date / Time No Known Allergies Allergy Verified 09/17/19 21:26 Physical Exam Vitals: Vital Signs Temp Pulse Resp BP Pulse Ox 09/19/19 16:00 87 20 09/19/19 15:57 98.5 F 87 20 162/72 97 09/19/19 11:39 98.4 F 84 20 135/62 98 09/19/19 08:00 98.2 F 95 20 133/84 96 09/19/19 04:00 97.3 F L 83 18 142/59 97 09/19/19 00:00 98.5 F 87 16 118/56 98 09/18/19 20:00 97 F L 82 18 121/58 97 Intake and Output 09/19/19 09/19/19 09/19/19 06:59 14:59 22:59 Intake Total 100 Output Total 550 Balance -550 100 Intake: Intake, IV Titration 100 Amount Ampicillin-Sulbactam 3 gm 100 In Sodium Chloride 0.9% 100 ml @ 200 mls/hr IVPB Q6HR [facility] Rx#:[id number] Output: Urine 550 Other: Voiding Method Indwelling Catheter Indwelling Catheter Indwelling Catheter # Bowel Movements 2 Weight 84.5 kg 84.5 kg Well-developed, thinning, frail, pale compared to last time I saw patient, he is restless, opens his eyes to voice, noncommunicative, mildly scleral icterus, no audible adventitious breath sounds, patient does not follow commands, mildly distended abdomen, patient does wince with pain when palpating the right upper quadrant and periumbilical area, no palpable adenopathy, no lower extremity swelling, S1 and S2 auscultated, radial pulse palpable +2. Results CBC & Chem 7: 09/19/19 05:36 09/19/19 05:36 Labs: Abnormal Lab Results - Last 24 Hours (Table) 09/18/19 09/19/19 09/19/19 Range/Units 21:17 05:36 05:36 RBC 2.80 L 2.79 L (4.30-5.90) m/uL Hgb 9.0 L 8.8 L (13.0-17.5) gm/dL Hct 25.1 L 25.5 L (39.0-53.0) % RDW 18.1 H 18.3 H (11.5-15.5) % Plt Count 72 L 77 L (150-450) k/uL Monocytes # (Manual) 2.21 H (0-1.0) k/uL Chloride 108 H (98-107) mmol/L BUN 26 H (9-20) mg/dL Creatinine 0.64 L (0.66-1.25) mg/dL Glucose 102 H (74-99) mg/dL POC Glucose (mg/dL) (75-99) mg/dL Total Bilirubin 2.0 H (0.2-1.3) mg/dL AST 209 H (17-59) U/L ALT 85 H (4-49) U/L Alkaline Phosphatase 229 H (38-126) U/L Ammonia (<30) umol/L C-Reactive Protein 27.5 H (<10.0) mg/L Albumin 3.3 L (3.5-5.0) g/dL Procalcitonin (0.02-0.09) ng/mL 09/19/19 09/19/19 09/19/19 Range/Units 05:36 05:36 05:56 RBC (4.30-5.90) m/uL Hgb (13.0-17.5) gm/dL Hct (39.0-53.0) % RDW (11.5-15.5) % Plt Count (150-450) k/uL Monocytes # (Manual) (0-1.0) k/uL Chloride (98-107) mmol/L BUN (9-20) mg/dL Creatinine (0.66-1.25) mg/dL Glucose (74-99) mg/dL POC Glucose (mg/dL) 101 H (75-99) mg/dL Total Bilirubin (0.2-1.3) mg/dL AST (17-59) U/L ALT (4-49) U/L Alkaline Phosphatase (38-126) U/L Ammonia 31 H (<30) umol/L C-Reactive Protein (<10.0) mg/L Albumin (3.5-5.0) g/dL Procalcitonin 0.24 H (0.02-0.09) ng/mL 09/19/19 09/19/19 Range/Units 11:40 16:45 RBC (4.30-5.90) m/uL Hgb (13.0-17.5) gm/dL Hct (39.0-53.0) % RDW (11.5-15.5) % Plt Count (150-450) k/uL Monocytes # (Manual) (0-1.0) k/uL Chloride (98-107) mmol/L BUN (9-20) mg/dL Creatinine (0.66-1.25) mg/dL Glucose (74-99) mg/dL POC Glucose (mg/dL) 111 H 107 H (75-99) mg/dL Total Bilirubin (0.2-1.3) mg/dL AST (17-59) U/L ALT (4-49) U/L Alkaline Phosphatase (38-126) U/L Ammonia (<30) umol/L C-Reactive Protein (<10.0) mg/L Albumin (3.5-5.0) g/dL Procalcitonin (0.02-0.09) ng/mL Chest x-ray: report reviewed Assessment and Plan (1) Hepatocellular carcinoma Current Visit: Yes Status: Chronic Priority: High Code(s): C22.0 - LIVER CELL CARCINOMA SNOMED Code(s): 841156977 (2) Bicytopenia Current Visit: Yes Status: Chronic Priority: High Code(s): D75.89 - OTHER SPECIFIED DISEASES OF BLOOD AND BLOOD-FORMING ORGANS SNOMED Code(s): 95860574 (3) Hepatic encephalopathy Current Visit: Yes Status: Acute Priority: High Code(s): K72.90 - HEPATIC FAILURE, UNSPECIFIED WITHOUT COMA SNOMED Code(s): 40440353 Plan: Due to suspect for gastrointestinal bleeding cabometyx will be placed on hold again, this is a known side effect of the drug. Patient's labs been reviewed in detail. They are slightly worse than baseline (LFTs, bilirubin, coags). This would be most suggestive of progressive disease and pt has not been able to tolerate drug for a time period significant enough to impact disease. Patient's expressed her concerns and recognizes the patient's progressive decline. She verbalized understanding that there are no further lines of treatment for hepatocellular carcinoma. She is in agreement for palliative care-patient and have both had bad experiences with hospice and that is why they are not opting for hospice care. states 's desire was to be at home but, discussed with her significant time that would be taken away from her spending it with him performing his care. She will consider this. All patients 's questions were answered to her satisfaction. Patient was listen to, feelings were validated. Discussed with Material Control Associate, expressed pt/ concerns. She will follow-up with palliative care referral. Time with Patient: Greater than 30
[2019-09-19 20:35] LABS: Glucose,Whole Blood 109 mg/dL (75-99)
--- NOTE | 2019-09-19 20:42 | P.PN ---
Subjective Progress Note Date: 09/19/19 Principal diagnosis: Hepatic encephalopathy, hepatocellular carcinoma, coffee-ground emesis, GI bleed Patient seen with at bedside. No further nausea, vomiting or signs or s ymptoms GI bleed. Patient not tolerating oral medications at this time. Objective - Vital Signs Vital signs: Vital Signs Temp 98.5 F 09/19/19 15:57 Pulse 87 09/19/19 16:00 Resp 20 09/19/19 16:00 BP 162/72 09/19/19 15:57 Pulse Ox 97 09/19/19 15:57 Intake & Output 09/19/19 09/19/19 09/20/19 06:59 18:59 06:59 Intake Total 100 Output Total 750 Balance -750 100 Weight 84.5 kg 84.5 kg Intake: Intake, IV Titration 100 Amount Ampicillin-Sulbactam 3 gm 100 In Sodium Chloride 0.9% 100 ml @ 200 mls/hr IVPB Q6HR [facility] Rx#:[id number] Output: Urine 750 Other: Voiding Method Indwelling Catheter Indwelling Catheter # Bowel Movements 2 - Exam On physical examination, patient appears comfortable in no apparent distress. HEAD: Normocephalic, atraumatic. EYES: No scleral icterus. No conjunctival injection. MOUTH: No lesions, tongue midline. NECK: Trachea midline, no gross abnormalities. ABDOMEN: Soft, obese. Bowel sounds are positive. No organomegaly. No guarding or rigidity. EXTREMITIES: No pedal edema. SKIN: No rashes, no jaundice. NEUROLOGIC: Alert and arousable but not oriented or following commands. - Labs CBC & Chem 7: 09/19/19 05:36 09/19/19 05:36 Labs: Abnormal Lab Results - Last 24 Hours (Table) 09/18/19 09/19/19 09/19/19 Range/Units 21:17 05:36 05:36 RBC 2.80 L 2.79 L (4.30-5.90) m/uL Hgb 9.0 L 8.8 L (13.0-17.5) gm/dL Hct 25.1 L 25.5 L (39.0-53.0) % RDW 18.1 H 18.3 H (11.5-15.5) % Plt Count 72 L 77 L (150-450) k/uL Monocytes # (Manual) 2.21 H (0-1.0) k/uL Chloride 108 H (98-107) mmol/L BUN 26 H (9-20) mg/dL Creatinine 0.64 L (0.66-1.25) mg/dL Glucose 102 H (74-99) mg/dL POC Glucose (mg/dL) (75-99) mg/dL Total Bilirubin 2.0 H (0.2-1.3) mg/dL AST 209 H (17-59) U/L ALT 85 H (4-49) U/L Alkaline Phosphatase 229 H (38-126) U/L Ammonia (<30) umol/L C-Reactive Protein 27.5 H (<10.0) mg/L Albumin 3.3 L (3.5-5.0) g/dL Procalcitonin (0.02-0.09) ng/mL 09/19/19 09/19/19 09/19/19 Range/Units 05:36 05:36 05:56 RBC (4.30-5.90) m/uL Hgb (13.0-17.5) gm/dL Hct (39.0-53.0) % RDW (11.5-15.5) % Plt Count (150-450) k/uL Monocytes # (Manual) (0-1.0) k/uL Chloride (98-107) mmol/L BUN (9-20) mg/dL Creatinine (0.66-1.25) mg/dL Glucose (74-99) mg/dL POC Glucose (mg/dL) 101 H (75-99) mg/dL Total Bilirubin (0.2-1.3) mg/dL AST (17-59) U/L ALT (4-49) U/L Alkaline Phosphatase (38-126) U/L Ammonia 31 H (<30) umol/L C-Reactive Protein (<10.0) mg/L Albumin (3.5-5.0) g/dL Procalcitonin 0.24 H (0.02-0.09) ng/mL 09/19/19 09/19/19 09/19/19 Range/Units 11:40 16:45 20:33 RBC (4.30-5.90) m/uL Hgb (13.0-17.5) gm/dL Hct (39.0-53.0) % RDW (11.5-15.5) % Plt Count (150-450) k/uL Monocytes # (Manual) (0-1.0) k/uL Chloride (98-107) mmol/L BUN (9-20) mg/dL Creatinine (0.66-1.25) mg/dL Glucose (74-99) mg/dL POC Glucose (mg/dL) 111 H 107 H 109 H (75-99) mg/dL Total Bilirubin (0.2-1.3) mg/dL AST (17-59) U/L ALT (4-49) U/L Alkaline Phosphatase (38-126) U/L Ammonia (<30) umol/L C-Reactive Protein (<10.0) mg/L Albumin (3.5-5.0) g/dL Procalcitonin (0.02-0.09) ng/mL Assessment and Plan (1) Hepatic encephalopathy Narrative/Plan: 79-year-old male with multiple medical comorbidities including hepatocellular carcinoma 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 Previously the patient had been seen in 07/2019 for concerns over melena at which time EGD colonoscopy were performed and significant for esophagitis, gastritis, diverticulosis and polypectomy with no signs of active bleeding at that time. On current presentation patient had 2 episodes of coffee-ground emesis with hemoglobin of 7.7 on presentation. No further episodes of coffee-ground emesis or melanotic stool reported, with the patient's stating he is had 2 brown bowel movements. Hemoglobin improved appropriately at 9.1 status post transfusion. There are also concerns over patient's mentation over the past 2 weeks, although it is commented that the patient has not been himself, with trouble sleeping as well as problems with altered mental status and disorientation. Originally this occurred after a mechanical fall for which the patient was taken to the hospital and had a computed tomography scan of the head which was negative for any intracranial pathology. Ammonia was found to be elevated at 51 with suspicion for possible hepatic encephalopathy in the setting of cirrhosis on admission and patient was started on lactulose, switched to rectal due to poor oral intake . Current Visit: Yes Status: Acute Priority: High Code(s): K72.90 - HEPATIC FAILURE, UNSPECIFIED WITHOUT COMA SNOMED Code(s): 54485259 (2) Anemia associated with acute blood loss Current Visit: Yes Status: Acute Code(s): D62 - ACUTE POSTHEMORRHAGIC ANEMIA SNOMED Code(s): 250174239 (3) GI bleed Current Visit: Yes Status: Acute Code(s): K92.2 - GASTROINTESTINAL HEMORRHAG E, UNSPECIFIED SNOMED Code(s): 30930432 (4) Liver cancer Current Visit: Yes Status: Chronic Priority: Medium Code(s): C22.9 - MALIG NEOPLASM OF LIVER, NOT SPECIFIED PRIMARY OR SEC SNOMED Code(s): 60133995 Plan: Supportive care Okay to advance diet as tolerated to low-sodium, pending improvement in mental status Continue to monitor hemoglobin and hematocrit and transfuse as needed Protonix increased to IV twice daily Continue to monitor for signs or symptoms of GI bleed Extensive discussion with the patient's and decision maker with this time would like conservative management of GI bleed with consideration for further endoscopic evaluation if the patient has further evidence of GI bleeding Lactulose 3 times a day switched to rectal today due to altered mentation, titrate medication for 2-3 bowel movements daily Minimize sedative medications such as narcotics in anxiolytics due to sedative effects cirrhotic patient Sodium restricted diet Thank you for allowing us to participate in the care of the patient we will continue to follow
[2019-09-20] MEDS: MORPHINE SULFATE 2 MG/ML SYRINGE IVP PRN ×4 (04:37→20:50)
[2019-09-20 06:13] LABS: Glucose,Whole Blood 105 mg/dL (75-99)
[2019-09-20 06:16] LABS: ALT 64 U/L (4-49); AST 122 U/L (17-59); African American GFR (CKD) >90 (>60 ml/min/1.73 sqM); Alkaline Phosphatase 210 U/L (38-126); Anion Gap 8 mmol/L; Blood Urea Nitrogen 18 mg/dL (9-20); Calcium 8.1 mg/dL (8.4-10.2); Carbon Dioxide 23 mmol/L (22-30); Chloride 111 mmol/L (98-107); Glucose 104 mg/dL (74-99); Non-African American GFR(CKD) >90 (>60 ml/min/1.73 sqM); Potassium 3.6 mmol/L (3.5-5.1); Sodium 142 mmol/L (137-145); Total Bilirubin 1.6 mg/dL (0.2-1.3); Total Protein 6.7 g/dL (6.3-8.2)
[2019-09-20] MEDS: AMPICILLIN-SULBACTAM 3 GM in SODIUM CHLORIDE 0.9% 100 ML IVPB SCH ×3 (06:22→16:54)
[2019-09-20] MEDS: CARVEDILOL 6.25 MG TAB PO SCH ×2 (06:23→16:46)
[2019-09-20 06:24] LABS: Anisocytosis Slight; HCT 23.9 % (39.0-53.0); HGB 7.9 gm/dL (13.0-17.5); MCH 30.4 pg (25.0-35.0); MCHC 32.9 g/dL (31.0-37.0); MCV 92.5 fL (80.0-100.0); Mean Platelet Volume 10.4; RBC 2.58 m/uL (4.30-5.90); RDW 18.2 % (11.5-15.5); WBC 5.2 k/uL (3.8-10.6)
[2019-09-20 06:32] LABS: Platelet Count 61 k/uL (150-450)
[2019-09-20] MEDS: LACTULOSE 200 GM/300 ML (FROM 1/2 GAL JUG) RECTAL SCH (06:48)
[2019-09-20] MEDS: INSULIN ASPART (NovoLOG) 100 UNIT/ML VIAL SQ SCH ×4 (06:59→20:51)
[2019-09-20 07:09] LABS: Band Neutrophils % 1 %; Lymphocytes # (M) 0.62 k/uL (1.0-4.8); Monocytes # (M) 2.03 k/uL (0-1.0); Neutrophils % (M) 46 %; Nucleated Red Blood Cells 0 /100 WBC (0-0); Total Cells Counted 100
[2019-09-20 07:10] LABS: Large Platelets Present
[2019-09-20] MEDS: MULTIVITAMINS, THERA 1 EACH TAB PO SCH (07:58)
[2019-09-20] MEDS: CHOLECALCIFEROL 1,000 UNIT TAB PO SCH (07:58)
[2019-09-20] MEDS: FUROSEMIDE 20 MG TAB PO SCH (08:00)
[2019-09-20] MEDS: POTASSIUM CHLORIDE ER 10 MEQ TAB.ER.PRT PO SCH (08:00)
[2019-09-20] MEDS: PANTOPRAZOLE 40 MG/10 ML VIAL IVP SCH ×2 (08:03→20:50)
--- NOTE | 2019-09-20 10:13 | P.PN ---
Subjective Progress Note Date: 09/20/19 Patient is 79-year-old male seen today on 09/18/2019 in the emergency room. Patient was admitted on 09/17/2019 his noticed some coffee-ground emesis on 09/17/2019 with increasing weakness. Patient has a history of GI bleed and was seen 07/2019 at [facility] where upper and lower GI scopes were performed revealing diverticulosis. Upon coming to the ER patient was seen to have a lactic acid of 3.2, hemoglobin 7.7, hematocrit 23.0, WBC 6.4. Patient is currently receiving one of 2 units of PRBCs in emergency department. Patient was given Valenzuela catheter in emergency department which resulted in 1400 mL of urine output. Patient's states the patient continues to receive oral chemo at home for history of liver CA, patient follows with Dr. Castro at [facility]. Patient denies shortness of breath, denies chest pain, denies recent illness or fevers. Patient stated he did not have a bowel movement 1 week in which gave stool softener that resulted in bowel movement. Patient's stated that he fell on 09/09/2019 which resulted in patient hitting his head. Patient was brought to the emergency room where a head CT and shoulder x-ray were performed. Head CT revealed no acute intracranial abnormality. Patient placed in patient has become increasingly restless and unable to sleep for the past several weeks, patient also is beginning to have bouts of confusion at home. Per patient was receiving by mouth Xanax 0.25 mg at bedtime for sleep disturbances. 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 Patient is currently resting comfortably in bed, patient wakes up for a stress but does not follow many commands. Patient's lungs are clear to auscultation, bowel sounds are clear to auscultation in all quadrants. On 09/19/2019 patient seen restless in bed with at bedside. Per patient did sleep for several hours throughout the night. Patient confusion is still present, alert and oriented 1. Patient unable to verbalize any symptoms. Patient was seen by GI team, GI increased Protonix to twice a day, plan is to administer lactulose. Per patient is unable to take medications by mouth at this time, will attempt to order lactulose rectally. GI team recommended minimal sedative medications including narcotics, sodium 60 diet, will consider further endoscopic evaluation if patient has further evidence of GI bleeding. Patient's verbalized wishes to discuss palliative care. Patient's ammonia level 31 today, lactic acid 1.8, hemoglobin 8.8, hematocrit 25.5 WBC 6.5. Inf ectious disease following patient, oncology service is consulted. Bone cultures were completed per infectious disease, patient is receiving Unasyn 3 g every 6 hours with conservative IV fluid therapy. On 09/20/2019 patient is alert and oriented 2 sitting up in chair. Patient's mentation is improved from yesterday. Patient is following commands and able take oral medications lactulose will be switched to oral. Hemoglobin today 7.9 platelet 61. We'll continue to monitor mentation and hemoglobin levels plan is to eventually DC with palliative care but will continue to monitor over the kend. Oncology GI and infectious disease are following. Patient remains on Unasyn for possible aspiration pneumonia. Objective - Vital Signs Vital signs: Vital Signs Temp 98.4 F 09/20/19 08:00 Pulse 89 09/20/19 08:00 Resp 18 09/20/19 08:00 BP 147/66 09/20/19 08:00 Pulse Ox 98 09/20/19 08:00 Intake & Output 09/19/19 09/20/19 09/20/19 18:59 06:59 18:59 Intake Total 100 Output Total 1000 Balance 100 -1000 Weight 84.5 kg 80.5 kg Intake: Intake, IV Titration 100 Amount Ampicillin-Sulbactam 3 gm 100 In Sodium Chloride 0.9% 100 ml @ 200 mls/hr IVPB Q6HR [facility] Rx#:[id number] Output: Urine 1000 Uretheral (Valenzuela) 300 Other: Voiding Method Indwelling Catheter Indwelling Catheter Indwelling Catheter # Voids 1 # Bowel Movements 2 2 - Exam Head normocephalic Neck supple Lungs clear to auscultation bilaterally no wheezing or crackles Heart regular rate and rhythm S1-S2, no rub or gallop Abdomen is soft nontender nondistended positive bowel sounds no hepatosplenomegaly Extremities no edema Neuro alert and orientated to 2 - Labs CBC & Chem 7: 09/20/19 05:35 09/20/19 05:35 Labs: Abnormal Lab Results - Last 24 Hours (Table) 09/19/19 09/19/19 09/19/19 Range/Units 05:36 11:40 16:45 RBC (4.30-5.90) m/uL Hgb (13.0-17.5) gm/dL Hct (39.0-53.0) % RDW (11.5-15.5) % Plt Count (150-450) k/uL Lymphocytes # (Manual) (1.0-4.8) k/uL Monocytes # (Manual) (0-1.0) k/uL Chloride (98-107) mmol/L Creatinine (0.66-1.25) mg/dL Glucose (74-99) mg/dL POC Glucose (mg/dL) 111 H 107 H (75-99) mg/dL Calcium (8.4-10.2) mg/dL Total Bilirubin (0.2-1.3) mg/dL AST (17-59) U/L ALT (4-49) U/L Alkaline Phosphatase (38-126) U/L Albumin (3.5-5.0) g/dL Procalcitonin 0.24 H (0.02-0.09) ng/mL 09/19/19 09/20/19 09/20/19 Range/Units 20:33 05:35 05:35 RBC 2.58 L (4.30-5.90) m/uL Hgb 7.9 L (13.0-17.5) gm/dL Hct 23.9 L (39.0-53.0) % RDW 18.2 H (11.5-15.5) % Plt Count 61 L (150-450) k/uL Lymphocytes # (Manual) 0.62 L (1.0-4.8) k/uL Monocytes # (Manual) 2.03 H (0-1.0) k/uL Chloride 111 H (98-107) mmol/L Creatinine 0.57 L (0.66-1.25) mg/dL Glucose 104 H (74-99) mg/dL POC Glucose (mg/dL) 109 H (75-99) mg/dL Calcium 8.1 L (8.4-10.2) mg/dL Total Bilirubin 1.6 H (0.2-1.3) mg/dL AST 122 H (17-59) U/L ALT 64 H (4-49) U/L Alkaline Phosphatase 210 H (38-126) U/L Albumin 3.0 L (3.5-5.0) g/dL Procalcitonin (0.02-0.09) ng/mL 09/20/19 Range/Units 05:51 RBC (4.30-5.90) m/uL Hgb (13.0-17.5) gm/dL Hct (39.0-53.0) % RDW (11.5-15.5) % Plt Count (150-450) k/uL Lymphocytes # (Manual) (1.0-4.8) k/uL Monocytes # (Manual) (0-1.0) k/uL Chloride (98-107) mmol/L Creatinine (0.66-1.25) mg/dL Glucose (74-99) mg/dL POC Glucose (mg/dL) 105 H (75-99) mg/dL Calcium (8.4-10.2) mg/dL Total Bilirubin (0.2-1.3) mg/dL AST (17-59) U/L ALT (4-49) U/L Alkaline Phosphatase (38-126) U/L Albumin (3.5-5.0) g/dL Procalcitonin (0.02-0.09) ng/mL Microbiology - Last 24 Hours (Table) 09/19/19 05:36 Blood Culture - Preliminary Blood No Growth after 24 hours Assessment and Plan Assessment: 1. Anemia secondary to GI bleed with coffee ground emesis. Will consult GI services. Patient has received one of 2 units packed red blood cells for anemia. We'll continue to monitor hemoglobin and hematocrit. Upper and lower GI scopes completed in July 2019. Hemoglobin 8.8 and 09/19/2019. No evidence of GI bleed at this time. 2. History of liver cancer with metastatic disease. Patient continues to fo llow with Dr. Cote of [facility]. Patient's reports current patient is receiving chemotherapy by mouth at home. Per cardiology patient's oral dose chemotherapy will be a on hold given due to GI bleed. Discussion was held with oncology services and about prognosis and treatment of his hepatocellular carcinoma likely plan for palliative care upon discharge. 3. Elevated lactic acid initial 5.8 lactic acid has declined currently at 1.8. Chest x-ray completed showing chronic parenchymal changes and cardiomegaly diminished inspiration on current study new Left mid to lower lung interstitial and/or alveolar edema and/or infiltrates are present. Infectious disease following Unasyn 3 g every 6 hours ordered. Blood cultures ordered 4. History of thrombocytopenia secondary to cancer chemotherapy. 5.. History of diabetes mellitus type 2. Metformin on hold, sliding scale insulin ordered. 6. History of essential hypertension. Home meds resumed, parameters will be set. 7. History of CVA 8. History of hearing disorder 10. History of prostate disorder 11. History of cholecystectomy 12. History of anxiety 13. Hepatic encephalopathy secondary to hepatocellular carcinoma and Slightly elevated ammonia at 31. Lactulose ordered, will attempt to ordered rectally as patient is not taking any medication by mouth at this time. Oncology and GI following. Mentation has slightly improved DVT prophylaxis SCDs. GI prophylaxis Protonix. GI, oncology and infectious disease following Continue to monitor CBC Continue lactulose for elevated ammonia level Continue Unasyn per ID Plan for eventual DC with palliative care Social work and case management following I performed an examination of the patient and discussed their management with the Nurse Practitioner. I have reviewed the Nurse Practitioner's notes and agree with the documented findings and plan of care
[2019-09-20] MEDS: LACTULOSE 20 GM/30 ML CUP PO SCH ×3 (11:23→20:51)
[2019-09-20 11:31] LABS: Glucose,Whole Blood 125 mg/dL (75-99)
[2019-09-20 16:33] LABS: Glucose,Whole Blood 126 mg/dL (75-99)
--- NOTE | 2019-09-20 16:50 | PN ---
PROGRESS NOTE DATE OF SERVICE: 09/20/2019. REASON FOR FOLLOWUP: Possible aspiration pneumonitis. INTERVAL HISTORY: The patient is currently afebrile. The patient is more awake and alert today. He is breathing comfortably. Denies having any chest pain. Occasional cough. No nausea, no vomiting or any diarrhea has been reported. PHYSICAL EXAMINATION: Blood pressure 118/61 with a pulse of 93, temperature 98.1. He is 99% on room air. General description is an elderly male lying in bed in no distress. RESPIRATORY SYSTEM: Unlabored breathing with decreased breath sounds at the base. No wheeze. HEART: S1, S2. Regular rate and rhythm. ABDOMEN: Soft. No tenderness. LABS: Hemoglobin 7.9, white count 5.2, BUN of 18, creatinine 0.57. Liver enzymes are elevated. DIAGNOSTIC IMPRESSION AND PLAN: Patient with lactic acidosis in this patient who did have hematemesis x2 and concern for aspiration pneumonitis. Patient is currently covered with Unasyn. He has shown some clinical improvement. We will monitor clinical course closely and continue with supportive care. MMODL / IJN: [id number] /
[2019-09-20 18:10] LABS: Anisocytosis Slight; HCT 23.2 % (39.0-53.0); HGB 7.9 gm/dL (13.0-17.5); MCH 31.4 pg (25.0-35.0); MCHC 34.1 g/dL (31.0-37.0); MCV 92.2 fL (80.0-100.0); Mean Platelet Volume 10.4; RBC 2.51 m/uL (4.30-5.90); WBC 5.5 k/uL (3.8-10.6)
[2019-09-20 18:12] LABS: Platelet Count 66 k/uL (150-450)
[2019-09-20] MEDS: LORazepam 2 MG/ML INJ IV PRN (18:12)
[2019-09-20 20:36] LABS: Glucose,Whole Blood 130 mg/dL (75-99)
[2019-09-20] MEDS: GABAPENTIN 400 MG CAP PO SCH (20:51)
[2019-09-20] MEDS: TAMSULOSIN 0.4 MG CAP.ER.24H PO SCH (20:51)
--- NOTE | 2019-09-20 23:47 | P.PN ---
Subjective Progress Note Date: 09/20/19 Principal diagnosis: Hepatic encephalopathy, hepatocellular carcinoma, coffee-ground emesis, GI bleed Patient seen with at bedside. No further nausea, vomiting patient did have a dark bowel movement this morning. Overall who is bedside is happy with his improving mentation. Objective - Vital Signs Vital signs: Vital Signs Temp 97.6 F 09/20/19 11:24 Pulse 86 09/20/19 11:24 Resp 18 09/20/19 11:24 BP 116/52 09/20/19 11:24 Pulse Ox 97 09/20/19 11:24 Intake & Output 09/19/19 09/20/19 09/20/19 18:59 06:59 18:59 Intake Total 100 460 Output Total 1000 Balance 100 -1000 460 Weight 84.5 kg 80.5 kg Intake: IV 100 Ampicillin-Sulbactam 3 gm 100 In Sodium Chloride 0.9% 100 ml @ 200 mls/hr IVPB Q6HR [facility] Rx#:[id number] Intake, IV Titration 100 Amount Ampicillin-Sulbactam 3 gm 100 In Sodium Chloride 0.9% 100 ml @ 200 mls/hr IVPB Q6HR [facility] Rx#:[id number] Oral 360 Output: Urine 1000 Uretheral (Valenzuela) 300 Other: Voiding Method Indwelling Catheter Indwelling Catheter Indwelling Catheter # Voids 1 # Bowel Movements 2 2 - Exam On physical examination, patient appears comfortable in no apparent distress. HEAD: Normocephalic, atraumatic. EYES: No scleral icterus. No conjunctival injection. MOUTH: No lesions, tongue midline. NECK: Trachea midline, no gross abnormalities. ABDOMEN: Soft, obese. Bowel sounds are positive. No organomegaly. No guarding or rigidity. EXTREMITIES: No pedal edema. SKIN: No rashes, no jaundice. NEUROLOGIC: Alert and oriented to person, per her mentation from yesterday's exam. - Labs CBC & Chem 7: 09/20/19 17:54 09/20/19 05:35 Labs: Abnormal Lab Results - Last 24 Hours (Table) 09/19/19 09/19/19 09/20/19 Range/Units 16:45 20:33 05:35 RBC (4.30-5.90) m/uL Hgb (13.0-17.5) gm/dL Hct (39.0-53.0) % RDW (11.5-15.5) % Plt Count (150-450) k/uL Lymphocytes # (Manual) (1.0-4.8) k/uL Monocytes # (Manual) (0-1.0) k/uL Chloride 111 H (98-107) mmol/L Creatinine 0.57 L (0.66-1.25) mg/dL Glucose 104 H (74-99) mg/dL POC Glucose (mg/dL) 107 H 109 H (75-99) mg/dL Calcium 8.1 L (8.4-10.2) mg/dL Total Bilirubin 1.6 H (0.2-1.3) mg/dL AST 122 H (17-59) U/L ALT 64 H (4-49) U/L Alkaline Phosphatase 210 H (38-126) U/L Albumin 3.0 L (3.5-5.0) g/dL 09/20/19 09/20/19 09/20/19 Range/Units 05:35 05:51 11:29 RBC 2.58 L (4.30-5.90) m/uL Hgb 7.9 L (13.0-17.5) gm/dL Hct 23.9 L (39.0-53.0) % RDW 18.2 H (11.5-15.5) % Plt Count 61 L (150-450) k/uL Lymphocytes # (Manual) 0.62 L (1.0-4.8) k/uL Monocytes # (Manual) 2.03 H (0-1.0) k/uL Chloride (98-107) mmol/L Creatinine (0.66-1.25) mg/dL Glucose (74-99) mg/dL POC Glucose (mg/dL) 105 H 125 H (75-99) mg/dL Calcium (8.4-10.2) mg/dL Total Bilirubin (0.2-1.3) mg/dL AST (17-59) U/L ALT (4-49) U/L Alkaline Phosphatase (38-126) U/L Albumin (3.5-5.0) g/dL Microbiology - Last 24 Hours (Table) 09/19/19 05:36 Blood Culture - Preliminary Blood No Growth after 24 hours Assessment and Plan (1) Hepatic encephalopathy Narrative/Plan: 79-year-old male with multiple medical comorbidities including hepatocellular carcinoma 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 Previously the patient had been seen in 07/2019 for concerns over melena at which time EGD colonoscopy were performed and significant for esophagitis, gastritis, diverticulosis and polypectomy with no signs of active bleeding at that time. On current presentation patient had 2 episodes of coffee-ground emesis with hemoglobin of 7.7 on presentation. No further episodes of coffee-ground emesis or melanotic stool reported, with the patient's stating he is had 2 brown bowel movements. Hemoglobin improved appropriately at 9.1 status post transfusion. There are also concerns over patient's mentation over the past 2 weeks, although it is commented that the patient has not been himself, with trouble sleeping as well as problems with altered mental status and disorientation. Originally this occurred after a mechanical fall for which the patient was taken to the hospital and had a computed tomography scan of the head which was negative for any intracranial pathology. Ammonia was found to be elevated at 51 with suspicion for possible hepatic encephalopathy in the setting of cirrhosis on admission and patient was started on lactulose, currently mentation is improving with a Abbott improved to 24 today. Current Visit: Yes Status: Acute Priority: High Code(s): K72.90 - HEPATIC FAILURE, UNSPECIFIED WITHOUT COMA SNOMED Code(s): 36208057 (2) Anemia associated with acute blood loss Current Visit: Yes Status: Acute Code(s): D62 - ACUTE POSTHEMORRHAGIC ANEMIA SNOMED Code(s): 078912418 (3) GI bleed Current Visit: Yes Status: Acute Code(s): K92.2 - GASTROINTESTINAL HEMORRHAGE, UNSPECIFIED SNOMED Code(s): 48700057 (4) Liver cancer Current Visit: Yes Status: Chronic Priority: Medium Code(s): C22.9 - MALIG NEOPLASM OF LIVER, NOT SPECIFIED PRIMARY OR SEC SNOMED Code(s): 00881106 Plan: Supportive care Okay to advance diet as tolerated to low-sodium Continue to monitor hemoglobin and hematocrit and transfuse as needed Protonix IV twice daily Continue to monitor for signs or symptoms of GI bleed Extensive discussion with the patient's and decision maker with this time would like conservative management of GI bleed with consideration for further endoscopic evaluation if the patient has further evidence of GI bleeding Lactulose 3 times a day titrate medication for 2-3 bowel movements daily Minimize sedative medications such as narcotics in anxiolytics due to sedative effects cirrhotic patient Sodium restricted diet Thank you for allowing us to participate in the care of the patient we will continue to follow
[2019-09-21] MEDS: AMPICILLIN-SULBACTAM 3 GM in SODIUM CHLORIDE 0.9% 100 ML IVPB SCH ×4 (00:10→18:40)
[2019-09-21] MEDS: LORazepam 2 MG/ML INJ IV PRN (02:52)
[2019-09-21 06:26] LABS: Glucose,Whole Blood 93 mg/dL (75-99)
[2019-09-21 06:52] LABS: Anisocytosis Slight; HCT 21.7 % (39.0-53.0); HGB 7.4 gm/dL (13.0-17.5); MCH 31.3 pg (25.0-35.0); MCHC 33.9 g/dL (31.0-37.0); MCV 92.4 fL (80.0-100.0); Mean Platelet Volume 10.6; RBC 2.35 m/uL (4.30-5.90); WBC 4.4 k/uL (3.8-10.6)
[2019-09-21] MEDS: INSULIN ASPART (NovoLOG) 100 UNIT/ML VIAL SQ SCH ×4 (06:58→22:11)
[2019-09-21] MEDS: CARVEDILOL 6.25 MG TAB PO SCH ×2 (06:58→17:29)
[2019-09-21 07:01] LABS: Platelet Count 53 k/uL (150-450)
[2019-09-21 07:02] LABS: ALT 51 U/L (4-49); AST 83 U/L (17-59); African American GFR (CKD) >90 (>60 ml/min/1.73 sqM); Albumin 2.9 g/dL (3.5-5.0); Alkaline Phosphatase 211 U/L (38-126); Anion Gap 6 mmol/L; Blood Urea Nitrogen 14 mg/dL (9-20); Calcium 7.8 mg/dL (8.4-10.2); Carbon Dioxide 26 mmol/L (22-30); Chloride 108 mmol/L (98-107); Glucose 92 mg/dL (74-99); Non-African American GFR(CKD) >90 (>60 ml/min/1.73 sqM); Potassium 3.2 mmol/L (3.5-5.1); Sodium 140 mmol/L (137-145); Total Bilirubin 1.5 mg/dL (0.2-1.3); Total Protein 6.8 g/dL (6.3-8.2)
[2019-09-21 07:26] LABS: Lymphocytes # (M) 0.66 k/uL (1.0-4.8); Monocytes # (M) 2.11 k/uL (0-1.0); Neutrophils # (M) 1.63 k/uL (1.3-7.7); Neutrophils % (M) 37 %; Nucleated Red Blood Cells 0 /100 WBC (0-0); Total Cells Counted 100
[2019-09-21] MEDS ORDERED: Potassium Replacement Protocol 1 EACH MISC MISCELLANE PRN (09:55)
--- NOTE | 2019-09-21 09:55 | P.PN ---
Subjective Progress Note Date: 09/21/19 Patient is 79-year-old male seen today on 09/18/2019 in the emergency room. Patient was admitted on 09/17/2019 his noticed some coffee-ground emesis on 09/17/2019 with increasing weakness. Patient has a history of GI bleed and was seen 07/2019 at [facility] where upper and lower GI scopes were performed revealing diverticulosis. Upon coming to the ER patient was seen to have a lactic acid of 3.2, hemoglobin 7.7, hematocrit 23.0, WBC 6.4. Patient is currently receiving one of 2 units of PRBCs in emergency department. Patient was given Valenzuela catheter in emergency department which resulted in 1400 mL of urine output. Patient's states the patient continues to receive oral chemo at home for history of liver CA, patient follows with Dr. Castro at [facility]. Patient denies shortness of breath, denies chest pain, denies recent illness or fevers. Patient stated he did not have a bowel movement 1 week in which gave stool softener that resulted in bowel movement. Patient's stated that he fell on 09/09/2019 which resulted in patient hitting his head. Patient was brought to the emergency room where a head CT and shoulder x-ray were performed. Head CT revealed no acute intracranial abnormality. Patient placed in patient has become increasingly restless and unable to sleep for the past several weeks, patient also is beginning to have bouts of confusion at home. Per patient was receiving by mouth Xanax 0.25 mg at bedtime for sleep disturbances. 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 Patient is currently resting comfortably in bed, patient wakes up for a stress but does not follow many commands. Patient's lungs are clear to auscultation, bowel sounds are clear to auscultation in all quadrants. On 09/19/2019 patient seen restless in bed with at bedside. Per patient did sleep for several hours throughout the night. Patient confusion is still present, alert and oriented 1. Patient unable to verbalize any symptoms. Patient was seen by GI team, GI increased Protonix to twice a day, plan is to administer lactulose. Per patient is unable to take medications by mouth at this time, will attempt to order lactulose rectally. GI team recommended minimal sedative medications including narcotics, sodium 60 diet, will consider further endoscopic evaluation if patient has further evidence of GI bleeding. Patient's verbalized wishes to discuss palliative care. Patient's ammonia level 31 today, lactic acid 1.8, hemoglobin 8.8, hematocrit 25.5 WBC 6.5. Inf ectious disease following patient, oncology service is consulted. Bone cultures were completed per infectious disease, patient is receiving Unasyn 3 g every 6 hours with conservative IV fluid therapy. On 09/20/2019 patient is alert and oriented 2 sitting up in chair. Patient's mentation is improved from yesterday. Patient is following commands and able take oral medications lactulose will be switched to oral. Hemoglobin today 7.9 platelet 61. We'll continue to monitor mentation and hemoglobin levels plan is to eventually DC with palliative care but will continue to monitor over the kend. Oncology GI and infectious disease are following. Patient remains on Unasyn for possible aspiration pneumonia. On 09/21/2018 Patient is currently alert oriented x 2 resting comfortably in bed. Hgb 7.4. no further signs of active bleeding. at bedside. Lactolous has been switched to PO. Patient denies any chest pain or shortness of breath. denies nausea vomiting or diarrhea. denies any urinary burning or frequency. Objective - Vital Signs Vital signs: Vital Signs Temp 97.9 F 09/21/19 04:00 Pulse 68 09/21/19 04:00 Resp 18 09/21/19 04:00 BP 106/52 09/21/19 04:00 Pulse Ox 95 09/21/19 04:00 Intake & Output 09/20/19 09/21/19 09/21/19 18:59 06:59 18:59 Intake Total 700 250 Output Total 450 550 Balance 250 -300 Weight 83 kg Intake: IV 100 Ampicillin-Sulbactam 3 gm 100 In Sodium Chloride 0.9% 100 ml @ 200 mls/hr IVPB Q6HR [facility] Rx#:[id number] Intake, IV Titration 100 Amount Ampicillin-Sulbactam 3 gm 100 In Sodium Chloride 0.9% 100 ml @ 200 mls/hr IVPB Q6HR [facility] Rx#:[id number] Oral 600 150 Output: Urine 450 550 Uretheral (Valenzuela) 150 Other: Voiding Method Indwelling Catheter Indwelling Catheter # Voids 1 1 - Exam Head normocephalic Neck supple Lungs clear to auscultation bilaterally no wheezing or crackles Heart regular rate and rhythm S1-S2, no rub or gallop Abdomen is soft nontender nondistended positive bowel sounds no hepatosplenomegaly Extremities no edema Neuro alert and orientated to 2 - Labs CBC & Chem 7: 09/21/19 06:29 09/21/19 06:29 Labs: Abnormal Lab Results - Last 24 Hours (Table) 09/20/19 09/20/19 09/20/19 Range/Units 11:29 16:32 17:54 RBC 2.51 L (4.30-5.90) m/uL Hgb 7.9 L (13.0-17.5) gm/dL Hct 23.2 L (39.0-53.0) % RDW 18.0 H (11.5-15.5) % Plt Count 66 L (150-450) k/uL Lymphocytes # (Manual) (1.0-4.8) k/uL Monocytes # (Manual) (0-1.0) k/uL Potassium (3.5-5.1) mmol/L Chloride (98-107) mmol/L Creatinine (0.66-1.25) mg/dL POC Glucose (mg/dL) 125 H 126 H (75-99) mg/dL Calcium (8.4-10.2) mg/dL Total Bilirubin (0.2-1.3) mg/dL AST (17-59) U/L ALT (4-49) U/L Alkaline Phosphatase (38-126) U/L Albumin (3.5-5.0) g/dL 09/20/19 09/21/19 09/21/19 Range/Units 20:29 06:29 06:29 RBC 2.35 L (4.30-5.90) m/uL Hgb 7.4 L (13.0-17.5) gm/dL Hct 21.7 L (39.0-53.0) % RDW 18.0 H (11.5-15.5) % Plt Count 53 L (150-450) k/uL Lymphocytes # (Manual) 0.66 L (1.0-4.8) k/uL Monocytes # (Manual) 2.11 H (0-1.0) k/uL Potassium 3.2 L (3.5-5.1) mmol/L Chloride 108 H (98-107) mmol/L Creatinine 0.46 L (0.66-1.25) mg/dL POC Glucose (mg/dL) 130 H (75-99) mg/dL Calcium 7.8 L (8.4-10.2) mg/dL Total Bilirubin 1.5 H (0.2-1.3) mg/dL AST 83 H (17-59) U/L ALT 51 H (4-49) U/L Alkaline Phosphatase 211 H (38-126) U/L Albumin 2.9 L (3.5-5.0) g/dL Microbiology - Last 24 Hours (Table) 09/19/19 05:36 Blood Culture - Preliminary Blood No Growth after 48 hours Assessment and Plan Assessment: 1. Anemia secondary to GI bleed with coffee ground emesis. Will consult GI services. Patient has received one of 2 units packed red blood cells for anemia. We'll continue to monitor hemoglobin and hematocrit. Upper and lower GI scopes completed in July 2019. Hemoglobin 7.4 2. History of liver cancer with metastatic disease. Patient continues to follow with Dr. Cote of [facility]. Patient's reports current patient is receiving chemotherapy by mouth at home. Per cardiology patient's oral dose chemotherapy will be a on hold given due to GI bleed. Discussion was held with oncology services and about prognosis and treatment of his hepatocellular carcinoma likely plan for palliative care upon discharge. 3. Elevated lactic acid initial 5.8 lactic acid has declined currently at 1.8. Chest x-ray completed showing chronic parenchymal changes and cardiomegaly diminished inspiration on current study new Left mid to lower lung interstitial and/or alveolar edema and/or infiltrates are present. Infectious disease following Unasyn 3 g every 6 hours ordered. Blood cultures ordered 4. History of thrombocytopenia secondary to cancer chemotherapy. 5.. History of diabetes mellitus type 2. Metformin on hold, sliding scale insulin ordered. 6. History of essential hypertension. Home meds resumed, parameters will be set. 7. History of CVA 8. History of hearing disorder 10. History of prostate disorder 11. History of cholecystectomy 12. History of anxiety 13. Hepatic encephalopathy secondary to hepatocellular carcinoma and Slightly elevated ammonia at 31. Lactulose ordered, will attempt to ordered rectally as patient is not taking any medication by mouth at this time. Oncology and GI following. Mentation has slightly improved DVT prophylaxis SCDs. GI prophylaxis Protonix. GI, oncology and infectious disease following Continue to monitor CBC Continue lactulose for elevated ammonia level Continue Unasyn per ID Plan for eventual DC with palliative care Social work and case management following I performed an examination of the patient and discussed their management with the Nurse Practitioner. I have reviewed the Nurse Practitioner's notes and agree with the documented findings and plan of care
[2019-09-21] MEDS: LACTULOSE 20 GM/30 ML CUP PO SCH ×4 (11:04→22:18)
[2019-09-21] MEDS: PANTOPRAZOLE 40 MG/10 ML VIAL IVP SCH ×2 (11:04→22:16)
[2019-09-21] MEDS: MULTIVITAMINS, THERA 1 EACH TAB PO SCH (11:04)
[2019-09-21] MEDS: FUROSEMIDE 20 MG TAB PO SCH (11:04)
[2019-09-21] MEDS: CHOLECALCIFEROL 1,000 UNIT TAB PO SCH (11:04)
[2019-09-21] MEDS: POTASSIUM CHLORIDE ER 10 MEQ TAB.ER.PRT PO SCH (11:04)
[2019-09-21 11:44] LABS: Glucose,Whole Blood 112 mg/dL (75-99)
[2019-09-21] MEDS: POTASSIUM CHLORIDE ER 20 MEQ TAB.ER PO SCH ×2 (11:49→13:19)
[2019-09-21 16:48] LABS: Glucose,Whole Blood 115 mg/dL (75-99)
[2019-09-21] MEDS: MORPHINE SULFATE 2 MG/ML SYRINGE IVP PRN (17:29)
--- NOTE | 2019-09-21 18:56 | P.PN ---
Subjective Progress Note Date: 09/21/19 Principal diagnosis: Hepatic encephalopathy, hepatocellular carcinoma, coffee-ground emesis, GI bleed Patient seen with at bedside. No further nausea, vomiting. Patient is still more appropriate than on admission, however some somnolence today per his who believes that Flexeril is the medication implicated in his somnolence today. Objective - Vital Signs Vital signs: Vital Signs Temp 96.6 F L 09/21/19 10:09 Pulse 66 09/21/19 10:09 Resp 18 09/21/19 10:09 BP 102/86 09/21/19 10:09 Pulse Ox 98 09/21/19 10:09 Intake & Output 09/20/19 09/21/19 09/21/19 18:59 06:59 18:59 Intake Total 700 250 100 Output Total 450 550 Balance 250 -300 100 Weight 83 kg Intake: IV 100 100 Ampicillin-Sulbactam 3 gm 100 100 In Sodium Chloride 0.9% 100 ml @ 200 mls/hr IVPB Q6HR [facility] Rx#:[id number] Intake, IV Titration 100 Amount Ampicillin-Sulbactam 3 gm 100 In Sodium Chloride 0.9% 100 ml @ 200 mls/hr IVPB Q6HR [facility] Rx#:[id number] Oral 600 150 Output: Urine 450 550 Uretheral (Valenzuela) 150 Other: Voiding Method Indwelling Catheter Indwelling Catheter Indwelling Catheter # Voids 1 1 - Exam On physical examination, patient appears comfortable in no apparent distress. HEAD: Normocephalic, atraumatic. EYES: No scleral icterus. No conjunctival injection. MOUTH: No lesions, tongue midline. NECK: Trachea midline, no gross abnormalities. ABDOMEN: Soft, obese. Bowel sounds are positive. No organomegaly. No guarding or rigidity. EXTREMITIES: No pedal edema. SKIN: No rashes, no jaundice. NEUROLOGIC: Alert and oriented to person and place but somnolent today. - Labs CBC & Chem 7: 09/21/19 06:29 09/21/19 06:29 Labs: Abnormal Lab Results - Last 24 Hours (Table) 09/20/19 09/20/19 09/20/19 Range/Units 16:32 17:54 20:29 RBC 2.51 L (4.30-5.90) m/uL Hgb 7.9 L (13.0-17.5) gm/dL Hct 23.2 L (39.0-53.0) % RDW 18.0 H (11.5-15.5) % Plt Count 66 L (150-450) k/uL Lymphocytes # (Manual) (1.0-4.8) k/uL Monocytes # (Manual) (0-1.0) k/uL Potassium (3.5-5.1) mmol/L Chloride (98-107) mmol/L Creatinine (0.66-1.25) mg/dL POC Glucose (mg/dL) 126 H 130 H (75-99) mg/dL Calcium (8.4-10.2) mg/dL Total Bilirubin (0.2-1.3) mg/dL AST (17-59) U/L ALT (4-49) U/L Alkaline Phosphatase (38-126) U/L Albumin (3.5-5.0) g/dL 09/21/19 09/21/19 09/21/19 Range/Units 06:29 06:29 11:42 RBC 2.35 L (4.30-5.90) m/uL Hgb 7.4 L (13.0-17.5) gm/dL Hct 21.7 L (39.0-53.0) % RDW 18.0 H (11.5-15.5) % Plt Count 53 L (150-450) k/uL Lymphocytes # (Manual) 0.66 L (1.0-4.8) k/uL Monocytes # (Manual) 2.11 H (0-1.0) k/uL Potassium 3.2 L (3.5-5.1) mmol/L Chloride 108 H (98-107) mmol/L Creatinine 0.46 L (0.66-1.25) mg/dL POC Glucose (mg/dL) 112 H (75-99) mg/dL Calcium 7.8 L (8.4-10.2) mg/dL Total Bilirubin 1.5 H (0.2-1.3) mg/dL AST 83 H (17-59) U/L ALT 51 H (4-49) U/L Alkaline Phosphatase 211 H (38-126) U/L Albumin 2.9 L (3.5-5.0) g/dL Microbiology - Last 24 Hours (Table) 09/19/19 05:36 Blood Culture - Preliminary Blood No Growth after 48 hours Assessment and Plan (1) Hepatic encephalopathy Narrative/Plan: 79-year-old male with multiple medical comorbidities including hepatocellular carcinoma believed to have occurred in the setting of Santos cirrhosis treated with chemotherapy at [facility] presented to the hospital due to complaints of 2 episodes of coffee-ground emesis. Previously the patient had been seen in 07/2019 for concerns over melena at which time EGD colonoscopy were performed and significant for esophagitis, gastritis, diverticulosis and polypectomy with no signs of active bleeding at that time. On current presentation patient had 2 episodes of coffee-ground emesis with hemoglobin of 7.7 on presentation. No further episodes of coffee-ground emesis or melanotic stool reported, with the patient's stating he is had 2 brown bowel movements. Hemoglobin improved appropriately at 9.1 status post transfusion. There are also concerns over patient's mentation over the past 2 weeks, although it is commented that the patient has not been himself, with trouble sleeping as well as problems with altered mental status and disorientation. Originally this occurred after a mechanical fall for which the patient was taken to the hospital and had a computed tomography scan of the head which was negative for any intracranial pathology. Ammonia was found to be elevated at 51 with suspicion for possible hepatic encephalopathy in the setting of cirrhosis on admission and patient was started on lactulose, currently mentation is improving with a ammonia improved to a 24 yesterday. Patient is still appropriate today but somewhat somnolent, likely secondary to medications with the patient receiving pain control, anxiolytic and Flexeril yesterday. Current Visit: Yes Status: Acute Priority: High Code(s): K72.90 - HEPATIC FAILURE, UNSPECIFIED WITHOUT COMA SNOMED Code(s): 93514341 (2) Anemia associated with acute blood loss Current Visit: Yes Status: Acute Code(s): D62 - ACUTE POSTHEMORRHAGIC ANEMIA SNOMED Code(s): 544141843 (3) GI bleed Current Visit: Yes Status: Acute Code(s): K92.2 - GASTROINTESTINAL HEMORRHAGE, UNSPECIFIED SNOMED Code(s): 01311224 (4) Liver cancer Current Visit: Yes Status: Chronic Priority: Medium Code(s): C22.9 - MALIG NEOPLASM OF LIVER, NOT SPECIFIED PRIMARY OR SEC SNOMED Code(s): 96356263 Plan: Supportive care Okay to advance diet as tolerated to low-sodium Continue to monitor hemoglobin and hematocrit and transfuse as needed Protonix IV twice daily Continue to monitor for signs or symptoms of GI bleed Extensive discussion with the patient's and decision maker with this time would like conservative management of GI bleed with consideration for further endoscopic evaluation if the patient has further evidence of GI bleeding Lactulose 3 times a day titrate medication for 2-3 bowel movements daily Minimize sedative medications such as narcotics, muscle relaxants, anxiolytics due to sedative effects cirrhotic patient Sodium restricted diet Thank you for allowing us to participate in the care of the patient we will continue to follow
[2019-09-21 20:33] LABS: Glucose,Whole Blood 167 mg/dL (75-99)
[2019-09-21] MEDS: TAMSULOSIN 0.4 MG CAP.ER.24H PO SCH (22:11)
[2019-09-21] MEDS: GABAPENTIN 400 MG CAP PO SCH (22:11)
--- NOTE | 2019-09-21 23:20 | PN ---
PROGRESS NOTE DATE OF SERVICE: 09/21/2019 REASON FOR FOLLOWUP: Possible aspiration pneumonitis. INTERVAL HISTORY: The patient is currently afebrile. The patient is breathing comfortably. Denies having any chest pain. Occasional cough. No nausea, vomiting, choking on food, abdominal pain. No diarrhea reported. PHYSICAL EXAMINATION: Blood pressure is 122/88 with a pulse of 76, temperature of 98.2. He is 95% on room air. General description is an elderly male lying in bed in no distress. Respiratory system: Unlabored breathing. Decreased breath sounds in the bases. No wheeze. Heart S1, S2. Regular rate and rhythm. Abdomen soft. No tenderness. LABS: Hemoglobin 7.4, white count 4.4, BUN of 14, creatinine 0.46. Liver enzymes mildly elevated. DIAGNOSTIC IMPRESSION AND PLAN: Patient with lactic acidosis in this patient admitted to the hospital with hematemesis and possibly aspiration pneumonitis. Currently covered with Unasyn which seems to have shown clinical improvement that will be continued and monitor clinical course closely. MMODL / IJN: [id number] /
[2019-09-22] MEDS: AMPICILLIN-SULBACTAM 3 GM in SODIUM CHLORIDE 0.9% 100 ML IVPB SCH ×5 (00:30→23:26)
[2019-09-22 05:58] LABS: Glucose,Whole Blood 91 mg/dL (75-99)
[2019-09-22] MEDS: INSULIN ASPART (NovoLOG) 100 UNIT/ML VIAL SQ SCH ×4 (06:10→20:46)
[2019-09-22 06:17] LABS: Anisocytosis Slight; HCT 21.8 % (39.0-53.0); HGB 7.4 gm/dL (13.0-17.5); MCH 31.6 pg (25.0-35.0); MCV 92.9 fL (80.0-100.0); Mean Platelet Volume 11.3; RBC 2.35 m/uL (4.30-5.90); RDW 18.5 % (11.5-15.5); WBC 3.6 k/uL (3.8-10.6)
[2019-09-22] MEDS: CARVEDILOL 6.25 MG TAB PO SCH ×2 (06:20→16:49)
[2019-09-22 06:23] LABS: Platelet Count 68 k/uL (150-450)
[2019-09-22 06:26] LABS: ALT 44 U/L (4-49); AST 70 U/L (17-59); African American GFR (CKD) >90 (>60 ml/min/1.73 sqM); Albumin 2.7 g/dL (3.5-5.0); Alkaline Phosphatase 205 U/L (38-126); Anion Gap 7 mmol/L; Blood Urea Nitrogen 12 mg/dL (9-20); Calcium 7.7 mg/dL (8.4-10.2); Carbon Dioxide 27 mmol/L (22-30); Chloride 106 mmol/L (98-107); Glucose 84 mg/dL (74-99); Non-African American GFR(CKD) >90 (>60 ml/min/1.73 sqM); Potassium 3.4 mmol/L (3.5-5.1); Sodium 140 mmol/L (137-145); Total Bilirubin 1.5 mg/dL (0.2-1.3); Total Protein 6.5 g/dL (6.3-8.2)
[2019-09-22 06:51] LABS: Eosinophils # (M) 0.04 k/uL (0-0.7); Lymphocytes # (M) 0.86 k/uL (1.0-4.8); Monocytes # (M) 1.69 k/uL (0-1.0); Neutrophils # (M) 1.01 k/uL (1.3-7.7); Neutrophils % (M) 28 %; Nucleated Red Blood Cells 0 /100 WBC (0-0); Total Cells Counted 200
[2019-09-22 06:52] LABS: Large Platelets Present
[2019-09-22] MEDS: MULTIVITAMINS, THERA 1 EACH TAB PO SCH (09:50)
[2019-09-22] MEDS: POTASSIUM CHLORIDE ER 10 MEQ TAB.ER.PRT PO SCH (09:50)
[2019-09-22] MEDS: LACTULOSE 20 GM/30 ML CUP PO SCH ×4 (09:50→21:07)
[2019-09-22] MEDS: FUROSEMIDE 20 MG TAB PO SCH (09:50)
[2019-09-22] MEDS: CHOLECALCIFEROL 1,000 UNIT TAB PO SCH (09:50)
[2019-09-22] MEDS: HYDROcodone/APAP 10-325MG 1 EACH TAB PO PRN ×2 (09:56→18:08)
[2019-09-22 11:53] LABS: Glucose,Whole Blood 205 mg/dL (75-99)
[2019-09-22] MEDS: PANTOPRAZOLE 40 MG/10 ML VIAL IVP SCH (12:19)
--- NOTE | 2019-09-22 13:06 | P.PN ---
Subjective Progress Note Date: 09/22/19 Patient is 79-year-old male seen today on 09/18/2019 in the emergency room. Patient was admitted on 09/17/2019 his noticed some coffee-ground emesis on 09/17/2019 with increasing weakness. Patient has a history of GI bleed and was seen 07/2019 at [facility] where upper and lower GI scopes were performed revealing diverticulosis. Upon coming to the ER patient was seen to have a lactic acid of 3.2, hemoglobin 7.7, hematocrit 23.0, WBC 6.4. Patient is currently receiving one of 2 units of PRBCs in emergency department. Patient was given Valenzuela catheter in emergency department which resulted in 1400 mL of urine output. Patient's states the patient continues to receive oral chemo at home for history of liver CA, patient follows with Dr. Castro at [facility]. Patient denies shortness of breath, denies chest pain, denies recent illness or fevers. Patient stated he did not have a bowel movement 1 week in which gave stool softener that resulted in bowel movement. Patient's stated that he fell on 09/09/2019 which resulted in patient hitting his head. Patient was brought to the emergency room where a head CT and shoulder x-ray were performed. Head CT revealed no acute intracranial abnormality. Patient placed in patient has become increasingly restless and unable to sleep for the past several weeks, patient also is beginning to have bouts of confusion at home. Per patient was receiving by mouth Xanax 0.25 mg at bedtime for sleep disturbances. 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 Patient is currently resting comfortably in bed, patient wakes up for a stress but does not follow many commands. Patient's lungs are clear to auscultation, bowel sounds are clear to auscultation in all quadrants. On 09/19/2019 patient seen restless in bed with at bedside. Per patient did sleep for several hours throughout the night. Patient confusion is still present, alert and oriented 1. Patient unable to verbalize any symptoms. Patient was seen by GI team, GI increased Protonix to twice a day, plan is to administer lactulose. Per patient is unable to take medications by mouth at this time, will attempt to order lactulose rectally. GI team recommended minimal sedative medications including narcotics, sodium 60 diet, will consider further endoscopic evaluation if patient has further evidence of GI bleeding. Patient's verbalized wishes to discuss palliative care. Patient's ammonia level 31 today, lactic acid 1.8, hemoglobin 8.8, hematocrit 25.5 WBC 6.5. In fectious disease following patient, oncology service is consulted. Bone cultures were completed per infectious disease, patient is receiving Unasyn 3 g every 6 hours with conservative IV fluid therapy. On 09/20/2019 patient is alert and oriented 2 sitting up in chair. Patient's mentation is improved from yesterday. Patient is following commands and able take oral medications lactulose will be switched to oral. Hemoglobin today 7.9 platelet 61. We'll continue to monitor mentation and hemoglobin levels plan is to eventually DC with palliative care but will continue to monitor over the we ekend. Oncology GI and infectious disease are following. Patient remains on Unasyn for possible aspiration pneumonia. On 09/21/2018 Patient is currently alert oriented x 2 resting comfortably in bed. Hgb 7.4. no further signs of active bleeding. at bedside. Lactolous has been switched to PO. Patient denies any chest pain or shortness of breath. denies nausea vomiting or diarrhea. denies any urinary burning or frequency. On 09/22/2019 patient was seen and examined on the telemetry floor he is alert and oriented 3 in no apparent distress he is asking about being discharged home. He is still extremely weak hemoglobin is 7.4 potassium is low at 3.4 patient still has a Valenzuela catheter in. Patient was counseled he will stay to tomorrow he would have 1 unit of red blood cell transfusion he would have his potassium corrected he would have the Valenzuela catheter removed and monitor for ev idence of urinary retention if stable patient will be discharged home tomorrow. At this time he is denying any symptoms. Objective - Vital Signs Vital signs: Vital Signs Temp 96.9 F L 09/22/19 11:50 Pulse 91 09/22/19 11:50 Resp 18 09/22/19 11:50 BP 120/68 09/22/19 11:50 Pulse Ox 95 09/22/19 11:50 Intake & Output 09/21/19 09/22/19 09/22/19 18:59 06:59 18:59 Intake Total 220 300 240 Output Total 1000 2250 Balance -780 -1950 240 Weight 85 kg Intake: IV 100 Ampicillin-Sulbactam 3 gm 100 In Sodium Chloride 0.9% 100 ml @ 200 mls/hr IVPB Q6HR DARIEN Rx#:[id number] Intake, IV Titration 100 Amount Ampicillin-Sulbactam 3 gm 100 In Sodium Chloride 0.9% 100 ml @ 200 mls/hr IVPB Q6HR DARIEN Rx#:[id number] Oral 120 200 240 Output: Urine 1000 2250 Uretheral (Valenzuela) 500 1500 Other: Voiding Method Indwelling Catheter Indwelling Catheter Indwelling Catheter # Voids 1 - Exam In general patient is alert and oriented 3 in no apparent distress Head normocephalic and atraumatic Neck supple no JVD no goiter Lungs clear to auscultation bilaterally no wheezing or crackles Heart regular rate and rhythm S1-S2, no rub or gallop Abdomen is soft nontender nondistended positive bowel sounds no hepatosplenomegaly Extremities no edema no cyanosis or clubbing Neuro no gross focal neurological deficit - Labs CBC & Chem 7: 09/22/19 05:35 09/22/19 05:35 Labs: Abnormal Lab Results - Last 24 Hours (Table) 09/21/19 09/21/19 09/22/19 Range/Units 16:47 20:30 05:35 WBC 3.6 L (3.8-10.6) k/uL RBC 2.35 L (4.30-5.90) m/uL Hgb 7.4 L (13.0-17.5) gm/dL Hct 21.8 L (39.0-53.0) % RDW 18.5 H (11.5-15.5) % Plt Count 68 L (150-450) k/uL Neutrophils # (Manual) 1.01 L (1.3-7.7) k/uL Lymphocytes # (Manual) 0.86 L (1.0-4.8) k/uL Monocytes # (Manual) 1.69 H (0-1.0) k/uL Potassium (3.5-5.1) mmol/L Creatinine (0.66-1.25) mg/dL POC Glucose (mg/dL) 115 H 167 H (75-99) mg/dL Calcium (8.4-10.2) mg/dL Total Bilirubin (0.2-1.3) mg/dL AST (17-59) U/L Alkaline Phosphatase (38-126) U/L Albumin (3.5-5.0) g/dL 09/22/19 09/22/19 Range/Units 05:35 11:46 WBC (3.8-10.6) k/uL RBC (4.30-5.90) m/uL Hgb (13.0-17.5) gm/dL Hct (39.0-53.0) % RDW (11.5-15.5) % Plt Count (150-450) k/uL Neutrophils # (Manual) (1.3-7.7) k/uL Lymphocytes # (Manual) (1.0-4.8) k/uL Monocytes # (Manual) (0-1.0) k/uL Potassium 3.4 L (3.5-5.1) mmol/L Creatinine 0.55 L (0.66-1.25) mg/dL POC Glucose (mg/dL) 205 H (75-99) mg/dL Calcium 7.7 L (8.4-10.2) mg/dL Total Bilirubin 1.5 H (0.2-1.3) mg/dL AST 70 H (17-59) U/L Alkaline Phosphatase 205 H (38-126) U/L Albumin 2.7 L (3.5-5.0) g/dL Microbiology - Last 24 Hours (Table) 09/19/19 05:36 Blood Culture - Preliminary Blood No Growth after 72 hours Assessment and Plan Plan: 1. Anemia secondary to GI bleed with coffee ground emesis. Will consult GI services. Patient has received one of 2 units packed red blood cells for anemia. We'll continue to monitor hemoglobin and hematocrit. Upper and lower GI scopes completed in July 2019. Hemoglobin 7.4 2. History of liver cancer with metastatic disease. Patient continues to follow with Dr. Cote of [facility]. Patient's reports current patient is receiving chemotherapy by mouth at home. Per cardiology patient's oral dose chemotherapy will be a on hold given due to GI bleed. Discussion was held with oncology services and about prognosis and treatment of his hepatocellular carcinoma likely plan for palliative care upon discharge. 3. Elevated lactic acid initial 5.8 lactic acid has declined currently at 1.8. Chest x-ray completed showing chronic parenchymal changes and cardiomegaly dim inished inspiration on current study new Left mid to lower lung interstitial and/or alveolar edema and/or infiltrates are present. Infectious disease following Unasyn 3 g every 6 hours ordered. Blood cultures ordered 4. History of thrombocytopenia secondary to cancer chemotherapy. 5.. History of diabetes mellitus type 2. Metformin on hold, sliding scale insulin ordered. 6. History of essential hypertension. Home meds resumed, parameters will be set. 7. History of CVA 8. History of hearing disorder 10. History of prostate disorder 11. History of cholecystectomy 12. History of anxiety 13. Hepatic encephalopathy secondary to hepatocellular carcinoma and Slightly elevated ammonia at 31. Lactulose ordered, will attempt to ordered rectally as patient is not taking any medication by mouth at this time. Oncology and GI following. Mentation has slightly improved DVT prophylaxis SCDs. GI prophylaxis Protonix. GI, oncology and infectious disease following Continue to monitor CBC Continue lactulose for elevated ammonia level Continue Unasyn per ID Plan for eventual DC with palliative care Social work and case management following
[2019-09-22] MEDS ORDERED: FUROSEMIDE 10 MG/ML 2 ML VIAL IV ONE (13:37)
[2019-09-22] MEDS ORDERED: Potassium Replacement Protocol 1 EACH MISC MISCELLANE PRN (13:40)
[2019-09-22] MEDS: POTASSIUM CHLORIDE ER 20 MEQ TAB.ER PO SCH ×2 (15:41→17:45)
[2019-09-22 17:01] LABS: Glucose,Whole Blood 154 mg/dL (75-99)
--- NOTE | 2019-09-22 18:20 | P.PN ---
Subjective Progress Note Date: 09/22/19 Principal diagnosis: Hepatic encephalopathy, hepatocellular carcinoma, coffee-ground emesis, GI bleed Patient seen sitting bedside with his . No further nausea, vomiting or s igns or symptoms of GI bleeding. The patient is tolerated diet. Mentation has improved greatly. Objective - Vital Signs Vital signs: Vital Signs Temp 98 F 09/22/19 08:00 Pulse 89 09/22/19 08:00 Resp 18 09/22/19 08:00 BP 116/56 09/22/19 08:00 Pulse Ox 98 09/22/19 08:00 Intake & Output 09/21/19 09/22/19 09/22/19 18:59 06:59 18:59 Intake Total 220 300 Output Total 1000 2250 Balance -780 -1950 Weight 85 kg Intake: IV 100 Ampicillin-Sulbactam 3 gm 100 In Sodium Chloride 0.9% 100 ml @ 200 mls/hr IVPB Q6HR DARIEN Rx#:[id number] Intake, IV Titration 100 Amount Ampicillin-Sulbactam 3 gm 100 In Sodium Chloride 0.9% 100 ml @ 200 mls/hr IVPB Q6HR DARIEN Rx#:[id number] Oral 120 200 Output: Urine 1000 2250 Uretheral (Valenzuela) 500 1500 Other: Voiding Method Indwelling Catheter Indwelling Catheter # Voids 1 - Exam On physical examination, patient appears comfortable in no apparent distress. HEAD: Normocephalic, atraumatic. EYES: No scleral icterus. No conjunctival injection. MOUTH: No lesions, tongue midline. NECK: Trachea midline, no gross abnormalities. ABDOMEN: Soft, obese. Bowel sounds are positive. No organomegaly. No guarding or rigidity. EXTREMITIES: No pedal edema. SKIN: No rashes, no jaundice. NEUROLOGIC: Alert and oriented x 3. - Labs CBC & Chem 7: 09/22/19 05:35 09/22/19 05:35 Labs: Abnormal Lab Results - Last 24 Hours (Table) 09/21/19 09/21/19 09/21/19 Range/Units 11:42 16:47 20:30 WBC (3.8-10.6) k/uL RBC (4.30-5.90) m/uL Hgb (13.0-17.5) gm/dL Hct (39.0-53.0) % RDW (11.5-15.5) % Plt Count (150-450) k/uL Neutrophils # (Manual) (1.3-7.7) k/uL Lymphocytes # (Manual) (1.0-4.8) k/uL Monocytes # (Manual) (0-1.0) k/uL Potassium (3.5-5.1) mmol/L Creatinine (0.66-1.25) mg/dL POC Glucose (mg/dL) 112 H 115 H 167 H (75-99) mg/dL Calcium (8.4-10.2) mg/dL Total Bilirubin (0.2-1.3) mg/dL AST (17-59) U/L Alkaline Phosphatase (38-126) U/L Albumin (3.5-5.0) g/dL 09/22/19 09/22/19 Range/Units 05:35 05:35 WBC 3.6 L (3.8-10.6) k/uL RBC 2.35 L (4.30-5.90) m/uL Hgb 7.4 L (13.0-17.5) gm/dL Hct 21.8 L (39.0-53.0) % RDW 18.5 H (11.5-15.5) % Plt Count 68 L (150-450) k/uL Neutrophils # (Manual) 1.01 L (1.3-7.7) k/uL Lymphocytes # (Manual) 0.86 L (1.0-4.8) k/uL Monocytes # (Manual) 1.69 H (0-1.0) k/uL Potassium 3.4 L (3.5-5.1) mmol/L Creatinine 0.55 L (0.66-1.25) mg/dL POC Glucose (mg/dL) (75-99) mg/dL Calcium 7.7 L (8.4-10.2) mg/dL Total Bilirubin 1.5 H (0.2-1.3) mg/dL AST 70 H (17-59) U/L Alkaline Phosphatase 205 H (38-126) U/L Albumin 2.7 L (3.5-5.0) g/dL Microbiology - Last 24 Hours (Table) 09/19/19 05:36 Blood Culture - Preliminary Blood No Growth after 72 hours Assessment and Plan (1) Hepatic encephalopathy Narrative/Plan: 79-year-old male with multiple medical comorbidities including hepatocellular carcinoma believed to have occurred in the setting of Santos cirrhosis treated with chemotherapy at [facility] presented to the hospital due to complaints of 2 episodes of coffee-ground emesis. Previously the patient had been seen in 07/2019 for concerns over melena at which time EGD colonoscopy were performed and significant for esophagitis, gastritis, diverticulosis and polypectomy with no signs of active bleeding at that time. On current presentation patient had 2 episodes of coffee-ground emesis with hemoglobin of 7.7 on presentation. No further episodes of coffee-ground emesis or melanotic stool reported, with the patient's stating he is had 2 brown bowel movements. Hemoglobin improved appropriately at 9.1 status post transfusion. There are also concerns over patient's mentation over the past 2 weeks, although it is commented that the patient has not been himself, with trouble sleeping as well as problems with altered mental status and disorientation. Originally this occurred after a mechanical fall for which the patient was taken to the hospital and had a computed tomography scan of the head which was negative for any intracranial pathology. Ammonia was found to be elevated at 51 with suspicion for possible hepatic encephalopathy in the setting of cirrhosis on admission and patient was started on lactulose, currently mentation is improving with a ammonia improved to a 24 yesterday. Patients much improved today. Current Visit: Yes Status: Acute Priority: High Code(s): K72.90 - HEPATIC FAILURE, UNSPECIFIED WITHOUT COMA SNOMED Code(s): 48571149 (2) Anemia associated with acute blood loss Current Visit: Yes Status: Acute Code(s): D62 - ACUTE POSTHEMORRHAGIC ANEMIA SNOMED Code(s): 025979209 (3) GI bleed Current Visit: Yes Status: Acute Code(s): K92.2 - GASTROINTESTINAL HEMORRHAGE, UNSPECIFIED SNOMED Code(s): 65769878 (4) Liver cancer Current Visit: Yes Status: Chronic Priority: Medium Code(s): C22.9 - MALIG NEOPLASM OF LIVER, NOT SPECIFIED PRIMARY OR SEC SNOMED Code(s): 58783862 Plan: Supportive care Okay for low-sodium diet Continue to monitor hemoglobin and hematocrit, plan for 1 unit of PRBCs today Protonix by mouth twice a day Continue to monitor for signs or symptoms of GI bleed Lactulose 3 times a day titrate medication for 2-3 bowel movements daily Minimize sedative medications such as narcotics, muscle relaxants, anxiolytics due to sedative effects cirrhotic patient Will defer resumption of chemotherapy to the oncology service was patient follows up Thank you for allowing us to participate in the care of the patient, okay for discharge from gastroenterology standpoint, please call us back with any questions or concerns
[2019-09-22 20:08] LABS: Glucose,Whole Blood 113 mg/dL (75-99)
[2019-09-22] MEDS: GABAPENTIN 400 MG CAP PO SCH (20:58)
[2019-09-22] MEDS: PANTOPRAZOLE 40 MG TABLET PO SCH (20:58)
[2019-09-22] MEDS: TAMSULOSIN 0.4 MG CAP.ER.24H PO SCH (20:59)
--- NOTE | 2019-09-22 22:19 | PN ---
PROGRESS NOTE DATE OF SERVICE: 09/22/2019 REASON FOR FOLLOW UP: Possible aspiration pneumonitis. INTERVAL HISTORY: The patient is currently afebrile. Patient has been breathing comfortably. Denies having any chest pain. Occasional cough. No nausea or vomiting. No abdominal pain. No diarrhea. PHYSICAL EXAMINATION: Blood pressure is 153/72 with a pulse of 75. Temp is 97.5. He is 99% on room air. General description is an elderly male up in the chair in no distress. Respiratory system: Unlabored breathing, decreased breath sounds in the bases. No wheeze. Heart S1, S2. Regular rate and rhythm. ABDOMEN: Soft. No tenderness. LABS: Hemoglobin 9.4, white count 3.6, creatinine 0.55. DIAGNOSTIC IMPRESSION AND PLAN: Patient admitted to the hospital with generalized weakness, mental status changes, episodes of vomiting, hematemesis and concern for aspiration pneumonitis. Patient seemed to have shown overall clinical improvement on the Unasyn transitioning to oral Augmentin for a short course on discharge. Continue supportive care. MMODL / IJN: [id number] /
[2019-09-22] MEDS: MORPHINE SULFATE 2 MG/ML SYRINGE IVP PRN (23:23)
[2019-09-23] MEDS: AMPICILLIN-SULBACTAM 3 GM in SODIUM CHLORIDE 0.9% 100 ML IVPB SCH (05:18)
[2019-09-23 06:11] LABS: Glucose,Whole Blood 96 mg/dL (75-99)
[2019-09-23 06:13] LABS: Anisocytosis Slight; HCT 24.5 % (39.0-53.0); HGB 8.2 gm/dL (13.0-17.5); MCH 31.1 pg (25.0-35.0); MCHC 33.4 g/dL (31.0-37.0); MCV 93.1 fL (80.0-100.0); Mean Platelet Volume 10.6; Platelet Count 75 k/uL (150-450); Poikilocytosis Slight; RBC 2.63 m/uL (4.30-5.90); RDW 17.7 % (11.5-15.5); WBC 4.7 k/uL (3.8-10.6)
[2019-09-23] MEDS: INSULIN ASPART (NovoLOG) 100 UNIT/ML VIAL SQ SCH (06:13)
[2019-09-23 06:14] LABS: ALT 42 U/L (4-49); AST 68 U/L (17-59); African American GFR (CKD) >90 (>60 ml/min/1.73 sqM); Albumin 2.8 g/dL (3.5-5.0); Alkaline Phosphatase 199 U/L (38-126); Anion Gap 5 mmol/L; Blood Urea Nitrogen 12 mg/dL (9-20); Calcium 7.8 mg/dL (8.4-10.2); Carbon Dioxide 27 mmol/L (22-30); Chloride 103 mmol/L (98-107); Glucose 92 mg/dL (74-99); Non-African American GFR(CKD) >90 (>60 ml/min/1.73 sqM); Potassium 3.8 mmol/L (3.5-5.1); Sodium 135 mmol/L (137-145); Total Bilirubin 1.2 mg/dL (0.2-1.3); Total Protein 6.4 g/dL (6.3-8.2)
[2019-09-23] MEDS: CARVEDILOL 6.25 MG TAB PO SCH (06:16)
[2019-09-23 06:41] LABS: Band Neutrophils % 1 %; Basophils # (M) 0.05 k/uL (0-0.2); Eosinophils # (M) 0.09 k/uL (0-0.7); Lymphocytes # (M) 1.36 k/uL (1.0-4.8); Monocytes # (M) 1.93 k/uL (0-1.0); Neutrophils % (M) 26 %; Nucleated Red Blood Cells 0 /100 WBC (0-0); Total Cells Counted 100
--- NOTE | 2019-09-23 09:25 | P.DS ---
Providers Date of admission: 09/17/19 20:01 Expected date of discharge: 09/23/19 Attending physician: Sammi Pickering Consults: 09/18/19 08:16 Consult Physician Routine Consulting Provider: Nigel Valadez Consult Reason/Comments: gi bleed previous scope Do you want consulting provider notified?: Yes 09/18/19 10:02 Consult Physician Routine Consulting Provider: Macario Amos Consult Reason/Comments: liver cancer with mets Do you want consulting provider notified?: Yes 09/18/19 11:14 Consult Physician Routine Consulting Provider: Jen Maria Consult Reason/Comments: elevated lactic acid Do you want consulting provider notified?: Yes [facility] Course: Discharge diagnosis 1. Anemia secondary to GI bleed with coffee ground emesis. Will consult GI services. Patient has received one of 2 units packed red blood cells for anemia. We'll continue to monitor hemoglobin and hematocrit. Upper and lower GI scopes completed in July 2019. Hemoglobin 7.4. Patient received an additional unit of PRBCs on 09/22/2019 hemoglobin improving to 8.2. Repeat CBC has been ordered for 2 days patient will be DC'd on Protonix twice a day per GI recommendation 2. History of liver cancer with metastatic disease. Patient continues to follow with Dr. Cote of [facility]. Patient's reports current patient is receiving chemotherapy by mouth at home. Per cardiology patient's oral dose chemotherapy will be a on hold given due to GI bleed. Discussion was held with oncology services and about prognosis and treatment of his hepatocellular carcinoma likely plan for palliative care upon discharge. 3. Elevated lactic acid initial 5.8 lactic acid has declined currently at 1.8. Chest x-ray completed showing chronic parenchymal changes and cardiomegaly diminished inspiration on current study new Left mid to lower lung interstitial and/or alveolar edema and/or infiltrates are present. Infectious disease following Unasyn 3 g every 6 hours ordered. Blood cultures negative. Per ID patient may be discharged on short course of Augmentin 4. History of thrombocytopenia secondary to cancer chemotherapy. 5.. History of diabetes mellitus type 2. Metformin on hold, sliding scale insulin ordered. 6. History of essential hypertension. Home meds resumed, parameters will be set. 7. History of CVA 8. History of hearing disorder 10. History of prostate disorder 11. History of cholecystectomy 12. History of anxiety 13. Hepatic encephalopathy secondary to hepatocellular carcinoma and Slightly elevated ammonia at 31. Lactulose ordered, will attempt to ordered rectally as patient is not taking any medication by mouth at this time. Oncology and GI following. Mentation is improved patient has returned to baseline. Patient will be DC'd on lactulose for goal of 3-4 BMs per day Hospital course Patient is 79-year-old male seen today on 09/18/2019 in the emergency room. Patient was admitted on 09/17/2019 his noticed some coffee-ground emesis on 09/17/2019 with increasing weakness. Patient has a history of GI bleed and was seen 07/2019 at [facility] where upper and lower GI scopes were performed revealing diverticulosis. Upon coming to the ER patient was seen to have a lactic acid of 3.2, hemoglobin 7.7, hematocrit 23.0, WBC 6.4. Patient is currently receiving one of 2 units of PRBCs in emergency department. Patient was given Valenzuela catheter in emergency department which resulted in 1400 mL of urine output. Patient's states the patient continues to receive oral chemo at home for history of liver CA, patient follows with Dr. Castro at [facility]. Patient denies shortness of breath, denies chest pain, denies recent illness or fevers. Patient stated he did not have a bowel movement 1 week in which gave stool softener that resulted in bowel movement. Patient's stated that he fell on 09/09/2019 which resulted in patient hitting his head. Patient was brought to the emergency room where a head CT and shoulder x-ray were performed. Head CT revealed no acute intracranial abnormality. Patient placed in patient has become increasingly restless and unable to sleep for the past several weeks, patient also is beginning to have bouts of confusion at home. Per patient was receiving by mouth Xanax 0.25 mg at bedtime for sleep disturbances. 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 Patient is currently resting comfortably in bed, patient wakes up for a stress but does not follow many commands. Patient's lungs are clear to auscultation, bowel sounds are clear to auscultation in all quadrants. On 09/19/2019 patient seen restless in bed with at bedside. Per patient did sleep for several hours throughout the night. Patient confusion is still present, alert and oriented 1. Patient unable to verbalize any symptoms. Patient was seen by GI team, GI increased Protonix to twice a day, plan is to administer lactulose. Per patient is unable to take medications by mouth at this time, will attempt to order lactulose rectally. GI team recommended minimal sedative medications including narcotics, sodium 60 diet, will consider further endoscopic evaluation if patient has further evidence of GI bleeding. Patient's verbalized wishes to discuss palliative care. Patient's ammonia level 31 today, lactic acid 1.8, hemoglobin 8.8, hematocrit 25.5 WBC 6.5. Infectious disease following patient, oncology service is consulted. Bone cultures were completed per infectious disease, patient is receiving Unasyn 3 g every 6 hours with conservative IV fluid therapy. On 09/20/2019 patient is alert and oriented 2 sitting up in chair. Patient's mentation is improved from yesterday. Patient is following commands and able take oral medications lactulose will be switched to oral. Hemoglobin today 7.9 platelet 61. We'll continue to monitor mentation and hemoglobin levels plan is to eventually DC with palliative care but will continue to monitor over the weekend. Oncology GI and infectious disease are following. Patient remains on Unasyn for possible aspiration pneumonia. On 09/21/2018 Patient is currently alert oriented x 2 resting comfortably in bed. Hgb 7.4. no further signs of active bleeding. at bedside. Lactolous has been switched to PO. Patient denies any chest pain or shortness of breath. denies nausea vomiting or diarrhea. denies any urinary burning or frequency. On 09/22/2019 patient was seen and examined on the telemetry floor he is alert and oriented 3 in no apparent distress he is asking about being discharged home. He is still extremely weak hemoglobin is 7.4 potassium is low at 3.4 patient still has a Valenzuela catheter in. Patient was counseled he will stay to tomorrow he would have 1 unit of red blood cell transfusion he would have his potassium corrected he would have the Valenzuela catheter removed and monitor for evidence of urinary retention if stable patient will be discharged home tomorrow. At this time he is denying any symptoms. On 09/23/2019 patient's alert and oriented 3. Patient has returned to baseline. Patient is eager to go home. is at bedside. Plan is for patient to go home with pallitive care. Patient received 1 unit of PRBCs on 09/22/2019 hemoglobin improving 8.2. Patient will be DC'd on Protonix and lactulose. ID reformation for short course of Augmentin. Repeat CBC and CMP has been ordered. Patient to follow-up with oncology services for further plan of care. At this time patient denies any chest pain or shortness of breath. Patient denies nausea vomiting and diarrhea. Patient denies any urinary burning or frequency. Patient reports one BMin the past 24 hours. I performed an examination of the patient and discussed their management with the Nurse Practitioner. I have reviewed the Nurse Practitioner's notes and agree with the documented findings and plan of care Patient Condition at Discharge: Stable Plan - Discharge Summary New Discharge Prescriptions: New Lactulose [Cephulac] 20 gm PO TID 14 Days #1000 ml Pantoprazole [Protonix] 40 mg PO BID 30 Days #60 tablet. Amoxicillin/Potassium Clav [Augmentin 500-125 Tablet] 1 tab PO Q12HR 7 Days #14 tab Continue metFORMIN HCL [Glucophage] 850 mg PO HS Potassium Chloride ER [K-Dur 10] 10 meq PO DAILY HYDROcodone/APAP 10-325MG [[place] 10-325] 2 tab PO Q8H PRN PRN Reason: Pain Furosemide [Lasix] 20 mg PO DAILY Cyclobenzaprine [Flexeril] 10 mg PO HS PRN PRN Reason: Muscle Spasm Tamsulosin [Flomax] 0.4 mg PO HS Gabapentin [Neurontin] 800 mg PO HS Multivit-Min/FA/Lycopen/Lutein [Centrum Silver Tablet] 1 tab PO DAILY Cholecalciferol [Vitamin D3 (25 Mcg = 1000 Iu)] 5,000 unit PO DAILY Carvedilol [Coreg] 6.25 mg PO BID Infliximab-Dyyb [Inflectra] 700 mg IV Q180D Enalapril [Vasotec] 5 mg PO DAILY ALPRAZolam [Xanax] 0.25 mg PO HS PRN PRN Reason: Anxiety Discontinued Pravastatin Sodium [Pravachol] 40 mg PO HS Cabozantinib S-Malate [Cabometyx] 20 mg PO DAILY Discharge Medication List Furosemide [Lasix] 20 mg PO DAILY 01/21/14 [History] HYDROcodone/APAP 10-325MG [[place] 10-325] 2 tab PO Q8H PRN 01/21/14 [History] Potassium Chloride ER [K-Dur 10] 10 meq PO DAILY 01/21/14 [History] metFORMIN HCL [Glucophage] 850 mg PO HS 01/21/14 [History] Cyclobenzaprine [Flexeril] 10 mg PO HS PRN 07/05/16 [History] Gabapentin [Neurontin] 800 mg PO HS 07/05/16 [History] Tamsulosin [Flomax] 0.4 mg PO HS 07/05/16 [History] Cholecalciferol [Vitamin D3 (25 Mcg = 1000 Iu)] 5,000 unit PO DAILY 09/30/16 [History] Multivit-Min/FA/Lycopen/Lutein [Centrum Silver Tablet] 1 tab PO DAILY 09/30/16 [History] Carvedilol [Coreg] 6.25 mg PO BID 07/09/19 [History] Infliximab-Dyyb [Inflectra] 700 mg IV Q180D 09/17/19 [History] ALPRAZolam [Xanax] 0.25 mg PO HS PRN 09/18/19 [History] Enalapril [Vasotec] 5 mg PO DAILY 09/18/19 [History] Amoxicillin/Potassium Clav [Augmentin 500-125 Tablet] 1 tab PO Q12HR 7 Days #14 tab 09/23/19 [Rx] Lactulose [Cephulac] 20 gm PO TID 14 Days #1000 ml 09/23/19 [Rx] Pantoprazole [Protonix] 40 mg PO BID 30 Days #60 tablet. 09/23/19 [Rx] Follow up Appointment(s)/Referral(s): [facility] [NON-STAFF] - Felisha Calderon MD [Primary Care Provider] - 1-2 days Nigel Valadez MD [STAFF PHYSICIAN] - 1 Week Ambulatory/Diagnostic Orders: Complete Blood Count w/diff [LAB.AMB] Time Frame: 2 Days, Location: None Selected Comprehensive Metabolic Panel [LAB.AMB] Time Frame: 2 Days, Location: None Selected Activity/Diet/Wound Care/Special Instructions: Activity as tolerated Diet heart healthy Per case management pallative care has been arranged Discharge Disposition: HOME WITH HOME HEALTH SERVICES
[2019-09-23 09:31] VITALS: BP 129/62; PULSE 75; RESP 16; TEMP 97.4
[2019-09-23] MEDS: CHOLECALCIFEROL 1,000 UNIT TAB PO SCH (09:36)
[2019-09-23] MEDS: POTASSIUM CHLORIDE ER 10 MEQ TAB.ER.PRT PO SCH (09:36)
[2019-09-23] MEDS: PANTOPRAZOLE 40 MG TABLET PO SCH (09:36)
[2019-09-23] MEDS: MULTIVITAMINS, THERA 1 EACH TAB PO SCH (09:36)
[2019-09-23] MEDS: FUROSEMIDE 20 MG TAB PO SCH (09:36)
[2019-09-23] MEDS: HYDROcodone/APAP 10-325MG 1 EACH TAB PO PRN (09:37)
[2019-09-23] MEDS: LACTULOSE 20 GM/30 ML CUP PO SCH (09:40)
[2019-09-23 11:51] LABS: Glucose,Whole Blood 125 mg/dL (75-99)
--- NOTE | 2019-09-23 21:53 | PN ---
PROGRESS NOTE DATE OF SERVICE: September 23, 2019 REASON FOR FOLLOWUP: Possible aspiration pneumonitis. INTERVAL HISTORY: The patient was seen on rounds this morning. The patient overall is feeling better, breathing comfortably. Denies having chest pain. Occasional cough. No nausea. No vomiting. No abdominal pain. No diarrhea. PHYSICAL EXAMINATION: Blood pressure is 129/62 with a pulse of 75. Temperature 97.4. He is 97% on room air. General description is an elderly male up in a chair, in no distress. Respiratory system: Unlabored breathing, clear to auscultation anteriorly. Heart S1, S2. Regular rate and rhythm. Abdomen soft. No tenderness. LABS: Hemoglobin 8.2, white count 4.7, BUN of 12, creatinine 0.55. Blood culture has been negative. DIAGNOSTIC IMPRESSION AND PLAN: Patient admitted to hospital with weakness, vomiting, lactic acidosis in this patient who did have possible aspiration pneumonitis. Overall improvement on Unasyn. To finish therapy with a short course of oral Augmentin and monitor clinical course closely. MMODL / IJN: [id number] /
--- NOTE | 2019-09-26 08:38 | CDI ---
Documentation Clarification Form Date: 09/26/19 From: Sita Urrutia Phone: If you have a question about this query, please contact Kristi Ibrahim Deposit Clerk at [phone] between 8am and 5pm. Admit Date: 09/17/19 Discharge Date:09/23/13 Patient Name: Beltran Vivar Visit Number: [id number] ATTENTION: The Clinical Documentation Specialists (CDI) and [facility] Coding Staff appreciate your assistance in clarifying documentation. Please respond to the clarification below the line at the bottom and electronically sign. The CDI & [facility] Coding staff will review the response and follow-up if needed. Please note: Queries are made part of the Legal Health Record. If you have any questions, please contact the author of this message via ITS. Dear Dr. Pickering Hepatic encephalopathy is documented in the discharge summary, your progress notes, Dr. Amos's consult note and Dr. Valadez's consult note. History/Risk Factors: Hepatocellular carcinoma, BROWN cirrhosis, aspiration pneumonia, anemia, GI bleed Clinical Indicators: Confusion Labs: Hgb 8.4 on 09/17, 7.7 on 09/18, WBC 6.8, platelet 131, ammonia 51, total bilirubin 1.6, AST 83, ALT 44, Alk phos 223, sodium 140, potassium 4.6 Treatment: Lactulose, IV Unasyn In your professional opinion, can you please further specify the hepatic encephalopathy, if known? Hepatic Encephalopathy, please clarify: Indicate if any complications: Coma, other disease process? Indicate whether acute, sub-acute or chronic? Other, please specify Unable to determine hepatic encephalopathy secondary to elevated ammonia and anemia MTDD
== END 2019-09-23 12:13 | disposition home health service (06) | DRG 377 ==
LOC: EC 18:46 → 3SCARD 20:01
PROVIDERS: ADMIT Internal Medicine; ATTEND Internal Medicine
PROC: 30233N1 Transfusion of Nonautologous Red Blood Cells into Peripheral Vein, Percutaneous Approach (ICD-10-PCS; principal; 2019-09-17)
DX: K92.2 Gastrointestinal hemorrhage, unspecified (principal); J69.0 Pneumonitis due to inhalation of food and vomit; D62 Acute posthemorrhagic anemia; C22.0 Liver cell carcinoma; E87.2 Acidosis; C79.9 Secondary malignant neoplasm of unspecified site; K92.0 Hematemesis; K72.90 Hepatic failure, unspecified without coma; L40.50 Arthropathic psoriasis, unspecified; I11.9 Hypertensive heart disease without heart failure; K74.60 Unspecified cirrhosis of liver; K75.81 Nonalcoholic steatohepatitis (NASH); E11.9 Type 2 diabetes mellitus without complications; E78.5 Hyperlipidemia, unspecified; F41.9 Anxiety disorder, unspecified; H91.90 Unspecified hearing loss, unspecified ear; J43.9 Emphysema, unspecified; K57.90 Diverticulosis of intestine, part unspecified, without perforation or abscess without bleeding; K59.00 Constipation, unspecified; G47.33 Obstructive sleep apnea (adult) (pediatric); K21.9 Gastro-esophageal reflux disease without esophagitis; N42.9 Disorder of prostate, unspecified; R01.1 Cardiac murmur, unspecified; E86.0 Dehydration; Z51.5 Encounter for palliative care; Z86.010 Personal history of colon polyps; Z79.84 Long term (current) use of oral hypoglycemic drugs; Z79.899 Other long term (current) drug therapy; Z86.73 Personal history of transient ischemic attack (TIA), and cerebral infarction without residual deficits; Z87.891 Personal history of nicotine dependence; Z90.49 Acquired absence of other specified parts of digestive tract; Z98.42 Cataract extraction status, left eye; Z98.41 Cataract extraction status, right eye; Z96.1 Presence of intraocular lens; Z80.0 Family history of malignant neoplasm of digestive organs; Z80.42 Family history of malignant neoplasm of prostate; Z83.79 Family history of other diseases of the digestive system
CPT/HCPCS: 36415; 36430; 51702; 71046; 80053; 81001; 82140; 82150; 83605; 83690; 83735; 84145; 84484; 85025; 85027; 85610; 85730; 86140; 86850; 86900; 86901; 86920; 87040; 96361; 96365; 96366; 96374; 96375; 96376; 99285

== ENCOUNTER 2019-10-01 14:28 | Emergency (ER) | payer MEDICARE, BC ==
[2019-10-01 14:49] VITALS: RESP 18; TEMP 98
--- NOTE | 2019-10-01 15:23 | ED ---
General Adult HPI - General Chief complaint: Extremity Injury, Upper Stated complaint: left arm fracture Time Seen by Provider: 10/01/19 14:45 Source: patient, family, RN notes reviewed, old records reviewed Mode of arrival: wheelchair Limitations: no limitations - History of Present Illness Initial comments: This is a 79-year-old male who presents emergency department with past medical history significant for metastatic liver cancer. Patient fell 3 weeks ago and injured his left arm recently had an x-ray and family was told he broke his arm. Patient also has been very anemic and had a high ammonia level. states she's become more pale recently and concerned that maybe he is lost and hemoglobin. Patient states that his ammonia levels been high but he has not been taking his lactulose because of the pain in her shoulder. wants to know if we can do a ammonia level. states he has not been confused he doesn't appear any weaker than normal. Patient has had no fever chills per patient has no cough. Patient denies any chest pain palpitations or abdominal pain. - Related Data Home Medications Medication Instructions Recorded Confirmed Furosemide [Lasix] 20 mg PO DAILY 01/21/14 10/01/19 HYDROcodone/APAP 10-325MG [[place] 2 tab PO Q8H PRN 01/21/14 10/01/19 10-325] Potassium Chloride ER [K-Dur 10] 10 meq PO DAILY 01/21/14 10/01/19 metFORMIN HCL [Glucophage] 850 mg PO HS 01/21/14 10/01/19 Cyclobenzaprine [Flexeril] 10 mg PO HS PRN 07/05/16 10/01/19 Gabapentin [Neurontin] 1,200 mg PO HS 07/05/16 10/01/19 Tamsulosin [Flomax] 0.4 mg PO HS 07/05/16 10/01/19 Cholecalciferol [Vitamin D3 (25 5,000 unit PO DAILY 09/30/16 10/01/19 Mcg = 1000 Iu)] Multivit-Min/FA/Lycopen/Lutein 1 tab PO DAILY 09/30/16 10/01/19 [Centrum Silver Tablet] Carvedilol [Coreg] 6.25 mg PO BID 07/09/19 10/01/19 Infliximab-Dyyb [Inflectra] 700 mg IV Q42D 09/17/19 10/01/19 ALPRAZolam [Xanax] 0.25 mg PO HS PRN 09/18/19 10/01/19 Enalapril [Vasotec] 5 mg PO DAILY 09/18/19 10/01/19 Diclofenac Sodium [Voltaren Gel] 1 applic TOPICAL BID PRN 10/01/19 10/01/19 Previous Rx's Medication Instructions Recorded Amoxicillin/Potassium Clav 1 tab PO Q12HR 7 Days #14 tab 09/23/19 [Augmentin 500-125 Tablet] Lactulose [Cephulac] 20 gm PO TID 14 Days #1000 ml 09/23/19 Pantoprazole [Protonix] 40 mg PO BID 30 Days #60 tablet. 09/23/19 Allergies Allergy/AdvReac Type Severity Reaction Status Date / Time No Known Allergies Allergy Verified 10/01/19 17:40 Review of Systems ROS Statement: Those systems with pertinent positive or pertinent negative responses have been documented in the HPI. ROS Other: All systems not noted in ROS Statement are negative. Past Medical History Past Medical History: Blood Disorder, Cancer, Chest Pain / Angina, COPD, CVA/TIA, Diabetes Mellitus, GERD/Reflux, Hearing Disorder / Deafness, Hyperlipidemia, Hypertension, Liver Disease, Prostate Disorder, Sleep Apnea/CPAP/BIPAP Additional Past Medical History / Comment(s): DIFF HEARING R&L/HEART MURMUR/POOR CIRCULATION/ENLARGED HEART/BRADYCARDIA/PSORIASIS/EMPHYSEMA/FATTY LIVER. LOW PLATELETS. Liver Cancer 2017, psoriatic arthritis History of Any Multi-Drug Resistant Organisms: None Reported Past Surgical History: Cholecystectomy, Heart Catheterization, Hernia Repair Additional Past Surgical History / Comment(s): BRONCHOSCOPY/CATARACT REMOVAL L&R/EGD/COLONOSCOPY/RT KNEE ARTHROSCOPIC /BULLETS REMOVED FROM LT ARM AND CHEST 1970'S/CIRCUMCISION, LIVER BIOPSY Past Anesthesia/Blood Transfusion Reactions: No Reported Reaction Past Psychological History: Anxiety Smoking Status: Former smoker Past Alcohol Use History: None Reported Past Drug Use History: None Reported - Past Family History Father Family Medical History: Cancer Additional Family Medical History / Comment(s): PROSTATE CANCER Brother(s) Family Medical History: Cancer Additional Family Medical History / Comment(s): COLON CANCER. Son(s) Family Medical History: Liver Disease General Exam - General Exam Comments Initial Comments: GENERAL: Patient is well-developed and well-nourished. Patient is nontoxic and well- hydrated and is in mild distress. ENT: Neck is soft and supple. No significant lymphadenopathy is noted. Oropharynx is clear. Moist mucous membranes. Neck has full range of motion without eliciting any pain. EYES: The sclera were anicteric and conjunctiva were pink and moist. Extraocular movements were intact and pupils were equal round and reactive to light. Eyeli ds were unremarkable. PULMONARY: Unlabored respirations. Good breath sounds bilaterally. No audible rales rhonchi or wheezing was noted. CARDIOVASCULAR: There is a regular rate and rhythm without any murmurs gallops or rubs. ABDOMEN: Soft and nontender with normal bowel sounds. SKIN: Skin is in general pale NEUROLOGIC: Patient is alert and oriented x3. Cranial nerves II through XII are grossly intact. Motor and sensory are also intact. Normal speech, volume and content. Symmetrical smile. MUSCULOSKELETAL: Patient is unable to lift his left arm because of pain at the proximal humerus. Palpating that area is also very tender LYMPHATICS: No significant lymphadenopathy is noted PSYCHIATRIC: Normal psychiatric evaluation. Limitations: no limitations Course Vital Signs 10/01/19 10/01/19 14:42 16:46 Temperature 98.0 F Pulse Rate 100 88 Respiratory 18 18 Rate Blood Pressure 132/72 116/61 O2 Sat by Pulse 97 97 Oximetry Procedures - Orthopedic Splinting/Casting Injury #1 Side: left Upper Extremity Injury Location: long arm Upper Extremity Immobilizer: sling/shoulder immobilizer, posterior splint Medical Decision Making - Medical Decision Making Humerus x-ray shows a proximal left humerus fracture with some displacement. I placed a splint on the patient and put him in a sling. X-ray shows bilateral small pleural effusions. Patient's hemoglobin was 9.0 which is elevated compared with last hemoglobin. Patient's ammonia was 45. states she can give him lactulose at home and does not want to stay in the hospital because of how busy we her today. She will follow-up with the orthopedic surgeon. - Lab Data Result diagrams: 10/01/19 15:10 10/01/19 15:10 Lab Results 10/01/19 10/01/19 10/01/19 Range/Units 15:10 15:10 15:10 WBC 7.0 (3.8-10.6) k/uL RBC 2.93 L (4.30-5.90) m/uL Hgb 9.0 L (13.0-17.5) gm/dL Hct 27.9 L (39.0-53.0) % MCV 95.5 (80.0-100.0) fL MCH 30.6 (25.0-35.0) pg MCHC 32.1 (31.0-37.0) g/dL RDW 18.3 H (11.5-15.5) % Plt Count 137 L D (150-450) k/uL Neutrophils % (Manual) 45 % Lymphocytes % (Manual) 14 % Monocytes % (Manual) 37 % Eosinophils % (Manual) 3 % Basophils % (Manual) 1 % Neutrophils # (Manual) 3.15 (1.3-7.7) k/uL Lymphocytes # (Manual) 0.98 L (1.0-4.8) k/uL Monocytes # (Manual) 2.59 H (0-1.0) k/uL Eosinophils # (Manual) 0.21 (0-0.7) k/uL Basophils # (Manual) 0.07 (0-0.2) k/uL Nucleated RBCs 0 (0-0) /100 WBC Manual Slide Review Performed Toxic Vacuolation Present Hypochromasia Slight Anisocytosis Slight Macrocytosis Slight PT (9.0-12.0) sec INR (<1.2) APTT (22.0-30.0) sec Sodium 139 (137-145) mmol/L Potassium 4.1 (3.5-5.1) mmol/L Chloride 105 (98-107) mmol/L Carbon Dioxide 28 (22-30) mmol/L Anion Gap 6 mmol/L BUN 10 (9-20) mg/dL Creatinine 0.51 L (0.66-1.25) mg/dL Est GFR (CKD-EPI)AfAm >90 (>60 ml/min/1.73 sqM) Est GFR (CKD-EPI)NonAf >90 (>60 ml/min/1.73 sqM) Glucose 110 H (74-99) mg/dL Calcium 8.0 L (8.4-10.2) mg/dL Total Bilirubin 0.8 (0.2-1.3) mg/dL AST 92 H (17-59) U/L ALT 43 (4-49) U/L Alkaline Phosphatase 274 H (38-126) U/L Ammonia 44 H (<30) umol/L Total Protein 7.2 (6.3-8.2) g/dL Albumin 3.0 L (3.5-5.0) g/dL 10/01/19 10/01/19 Range/Units 15:10 17:00 WBC (3.8-10.6) k/uL RBC (4.30-5.90) m/uL Hgb (13.0-17.5) gm/dL Hct (39.0-53.0) % MCV (80.0-100.0) fL MCH (25.0-35.0) pg MCHC (31.0-37.0) g/dL RDW (11.5-15.5) % Plt Count (150-450) k/uL Neutrophils % (Manual) % Lymphocytes % (Manual) % Monocytes % (Manual) % Eosinophils % (Manual) % Basophils % (Manual) % Neutrophils # (Manual) (1.3-7.7) k/uL Lymphocytes # (Manual) (1.0-4.8) k/uL Monocytes # (Manual) (0-1.0) k/uL Eosinophils # (Manual) (0-0.7) k/uL Basophils # (Manual) (0-0.2) k/uL Nucleated RBCs (0-0) /100 WBC Manual Slide Review Toxic Vacuolation Hypochromasia Anisocytosis Macrocytosis PT 19.7 H (9.0-12.0) sec INR 2.0 H (<1.2) APTT >200.0 H* 28.4 (22.0-30.0) sec Sodium (137-145) mmol/L Potassium (3.5-5.1) mmol/L Chloride (98-107) mmol/L Carbon Dioxide (22-30) mmol/L Anion Gap mmol/L BUN (9-20) mg/dL Creatinine (0.66-1.25) mg/dL Est GFR (CKD-EPI)AfAm (>60 ml/min/1.73 sqM) Est GFR (CKD-EPI)NonAf (>60 ml/min/1.73 sqM) Glucose (74-99) mg/dL Calcium (8.4-10.2) mg/dL Total Bilirubin (0.2-1.3) mg/dL AST (17-59) U/L ALT (4-49) U/L Alkaline Phosphatase (38-126) U/L Ammonia (<30) umol/L Total Protein (6.3-8.2) g/dL Albumin (3.5-5.0) g/dL Disposition Clinical Impression: Humerus fracture, Hyperammonemia, Chronic anemia Disposition: HOME SELF-CARE Instructions (If sedation given, give patient instructions): Proximal Humerus Fracture (ED) Is patient prescribed a controlled substance at d/c from ED?: No Referrals: Felisha Calderon MD [Primary Care Provider] - 1-2 days Ehsan Arriaza DO [Doctor of Osteopathic Medicine] - 1-2 days Time of Disposition: 18:22
[2019-10-01 15:41] LABS: ALT 43 U/L (4-49); AST 92 U/L (17-59); African American GFR (CKD) >90 (>60 ml/min/1.73 sqM); Alkaline Phosphatase 274 U/L (38-126); Anion Gap 6 mmol/L; Blood Urea Nitrogen 10 mg/dL (9-20); Carbon Dioxide 28 mmol/L (22-30); Chloride 105 mmol/L (98-107); Glucose 110 mg/dL (74-99); Non-African American GFR(CKD) >90 (>60 ml/min/1.73 sqM); Potassium 4.1 mmol/L (3.5-5.1); Sodium 139 mmol/L (137-145); Total Bilirubin 0.8 mg/dL (0.2-1.3); Total Protein 7.2 g/dL (6.3-8.2)
[2019-10-01 16:04] LABS: Anisocytosis Slight; HCT 27.9 % (39.0-53.0); Hypochromasia Slight; MCH 30.6 pg (25.0-35.0); MCHC 32.1 g/dL (31.0-37.0); MCV 95.5 fL (80.0-100.0); Macrocytosis Slight; Mean Platelet Volume 9.9; RBC 2.93 m/uL (4.30-5.90); RDW 18.3 % (11.5-15.5)
[2019-10-01 16:05] LABS: Platelet Count 137 k/uL (150-450)
--- NOTE | 2019-10-01 16:08 | XR ---
EXAMINATION TYPE: XR chest 2V DATE OF EXAM: 10/01/2019 COMPARISON: 09/18/2019 HISTORY: Shortness of breath TECHNIQUE: Frontal and lateral views of the chest are obtained. FINDINGS: Scattered senescent parenchymal changes noted. Hyperinflation compatible with COPD. No evidence for infiltrate. No evidence for atelectasis. Heart size is stable. Mediastinal structures are stable and grossly unremarkable. Small left pleural effusion suggested. No evidence for hilar prominence. Degenerative changes dorsal spine. Fracture left humeral neck with irregular margins may reflect unde rlying pathologic component. IMPRESSION: 1. Small pulmonary effusions are seen without focal infiltrate identified. 2.Fracture left humeral neck with irregular margins may reflect underlying pathologic component.
--- NOTE | 2019-10-01 16:10 | XR ---
EXAMINATION TYPE: XR humerus LT DATE OF EXAM: 10/01/2019 CLINICAL HISTORY: pain TECHNIQUE: Frontal and lateral images of the left humerus are obtained. COMPARISON: 09/09/2019 FINDINGS: There is pathologic fracture involving the left humeral neck. Margins are irregular. Previo us study demonstrated mottled appearance. IMPRESSION: There is pathologic fracture involving the left humeral neck. ICD 10 closed FRACTURE, INITIAL EVALUATION
[2019-10-01 16:16] LABS: Prothrombin Time 19.7 sec (9.0-12.0)
[2019-10-01] MEDS ORDERED: MORPHINE SULFATE 2 MG/ML SYRINGE IVP STA (16:37)
[2019-10-01 16:42] LABS: Basophils # (M) 0.07 k/uL (0-0.2); Eosinophils # (M) 0.21 k/uL (0-0.7); Lymphocytes # (M) 0.98 k/uL (1.0-4.8); Monocytes # (M) 2.59 k/uL (0-1.0); Neutrophils # (M) 3.15 k/uL (1.3-7.7); Neutrophils % (M) 45 %; Nucleated Red Blood Cells 0 /100 WBC (0-0); Total Cells Counted 100; Toxic Vacuolation Present
[2019-10-01 16:45] LABS: Partial Thromboplastin Time >200.0 sec (22.0-30.0)
[2019-10-01 16:47] VITALS: BP 116/61; PULSE 88
[2019-10-01] MEDS ORDERED: MORPHINE SULFATE 4 MG/ML SYRINGE IVP STA (18:20)
== END 2019-10-01 18:25 | disposition home or self-care (01) ==
LOC: EC 14:28
DX: S42.302A Unspecified fracture of shaft of humerus, left arm, initial encounter for closed fracture (principal); E72.20 Disorder of urea cycle metabolism, unspecified; D64.9 Anemia, unspecified; J90 Pleural effusion, not elsewhere classified; E11.9 Type 2 diabetes mellitus without complications; I10 Essential (primary) hypertension; N42.9 Disorder of prostate, unspecified; L40.50 Arthropathic psoriasis, unspecified; G47.30 Sleep apnea, unspecified; Z99.89 Dependence on other enabling machines and devices; Z86.73 Personal history of transient ischemic attack (TIA), and cerebral infarction without residual deficits; Z85.05 Personal history of malignant neoplasm of liver; Z87.891 Personal history of nicotine dependence; Z95.828 Presence of other vascular implants and grafts; Z79.891 Long term (current) use of opiate analgesic; Z79.1 Long term (current) use of non-steroidal anti-inflammatories (NSAID); Z79.84 Long term (current) use of oral hypoglycemic drugs; Z79.899 Other long term (current) drug therapy; W19.XXXA Unspecified fall, initial encounter
CPT/HCPCS: 36415; 80053; 82140; 85025; 85610; 85730; 73060; 71046; 99284; 29105; 96374; 96376; J2270 ×2

== ENCOUNTER → 2019-11-14 | Outpatient (CLI) | payer MEDICARE, BC ==
--- NOTE | 2019-11-14 15:35 | NM ---
EXAMINATION TYPE: NM bone scan whole body DATE OF EXAM: 11/14/2019 COMPARISON: PET/CT October 15, 2016. Prior left humeral x-ray October 01, 2019 HISTORY: Abnormal left humeral lesion. History of left humeral fracture 2 months earlier after fall i njury. History of liver cancer 2016. Delayed whole-body scanning was performed following the injection of 26.0 mCi Tc 99m MDP. Images acq uired 3 hours post injection. Whole body images in anterior and posterior projection along with proje ctions of the thorax and pelvis in multiple projections. FINDINGS: There is increased radiotracer uptake fairly diffusely in the left humeral head and proxima l metaphysis. Central lucent area is noted. Uncertain if this relates to trauma or underlying lesion. There is a second suspicious area of greater trochanter level of right proximal femur. There is bekah tional radiotracer uptake involving the left mid thoracic spine. There is slight asymmetric increased uptake left sacrum near the sacroiliac joint on posterior projection. Mild uptake in level of both k nee joints is felt to reflect prominent degenerative change. IMPRESSION: Metastatic disease needs to be considered given the multifocal areas of suspicious radiot racer uptake. Correlation with CT, MRI, or possibly PET/CT should be considered.
== END | disposition home or self-care (01) ==
LOC: RADNMMAIN 10:38
PROVIDERS: ATTEND Orthopaedic Surgery
DX: S42.292A Other displaced fracture of upper end of left humerus, initial encounter for closed fracture (principal)
CPT/HCPCS: 78306; A9503